=== PATIENT | male | born 1940 | race Caucasian/White ===

== ENCOUNTER 2016-09-18 21:32 | Inpatient (IN) | payer OTHER, BC ==
[~2016-09-18] VITALS: Ht 167.6 cm; Wt 104.7 kg
--- NOTE | ~2016-09-18 | H ---
[facility] [place] [address] HISTORY AND PHYSICAL Name: DIXIE KESSLER V Room #: 537-P ADM IN M.R.#: [id number] Admission: 09/18/16 Attend Phys: Abdulaziz Reed MD Discharge: Date of : 38 Report #: [id number] THIS REPORT FOR: //name// CC: Jaison Strong DATE OF SERVICE: 09/19/2016 ATTENDING PHYSICIAN: Abdulaziz Reed M.D. PRIMARY CARE PHYSICIAN: Pawan Hicks D.O. CHIEF COMPLAINT: Left knee redness, pain and swelling. HISTORY OF PRESENT ILLNESS: The patient is a 76-year-old male who came into the ER complaining of left knee pain. This has been going on for the last 5 days. He has noticed increasing redness and swelling, which has been getting worse in the last few days. His history is somewhat complicated and dates back to February, when he was found to have positive blood cultures with MSSA. He then had a CT of the lumbar spine which showed discitis with a vertebral osteomyelitis. He had a CONNIE, which did not show any vegetation, but his cultures remained persistently positive. It was also considered that he had an infected pacemaker. He does have a prior left total knee replacement. He has hardware in his left knee. He ended up being discharged to rehab on nafcillin IV, and has since been on antibiotics under the guidance of Dr. Lee, who check his labs 9 days ago and he was noted to have an elevated white blood cell count. He has not been having any fevers or chills. He has most recently been on Keflex for the last 2 months. He does have CLL, so he is on an oral chemotherapy, which he takes daily. He is followed by Dr. Ruiz. He called Dr. Lee with his left knee changes and was told to come into the ER to be evaluated. He has been admitted for further IV antibiotics. Back in February, he also had a whole body WBC scan that was negative. PAST MEDICAL HISTORY: Chronic kidney disease stage III with last known creatinine of 1.8, chronic lymphocytic leukemia, COPD, atrial fibrillation, hypothyroidism, hypertension and hypogammaglobulinemia. Recent lumbar discitis and vertebral osteomyelitis and recent bacteremia with MSSA. PAST SURGICAL HISTORY: Pacemaker placement, bilateral total knee replacement, lumbar laminectomy, bilateral carpal tunnel release, hand surgery, appendectomy, umbilical hernia repair, and a cyst removed from his tonsils. ALLERGIES: HYDROCODONE. [address] [address] HISTORY AND PHYSICAL Name: DIXIE KESSLER V Room #: 537-P [facility] IN .R.#: [id number] Admission: 09/18/16 Attend Phys: Abdulaziz Reed MD Discharge: Date of : 38 Report #: [id number] HOME MEDICATIONS: Torsemide 20 mg daily, amiodarone 200 mg daily, Flonase daily, Advair daily, potassium 10 mEq daily, Tylenol p.r.n., cranberry daily, ranitidine 75 mg b.i.d., metoprolol 50 mg b.i.d., Imbruvica 140 mg daily, Keflex 500 mg b.i.d. and Synthroid 25 mcg daily. SOCIAL HISTORY: The patient is an ex-smoker. He denies any alcohol or drug use. 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 He lives at home with his . FAMILY HISTORY: Noncontributory to this admission. REVIEW OF SYSTEMS: The patient has noticed since he has been on this specific chemotherapy, that he has had chronic edema in his upper extremities as well as easy bruising. He has had multiple Dopplers of his upper and lower extremities, which have always been negative for DVTs. All other 12-point review of systems was reviewed with the patient and otherwise negative unless stated in the HPI. PHYSICAL EXAMINATION: GENERAL: The patient is an alert male in no acute distress. VITAL SIGNS: Temperature is 36.7, heart rate 71, respirations 16, blood pressure is 166/84 and oxygen 96% on room air. HEENT: PERRLA. Sclerae are nonicteric. Oral mucosa is pink and moist. NECK: Supple, no JVD noted. CARDIOVASCULAR: Heart rate is irregular. No murmurs, rubs or gallops. RESPIRATORY: Breath sounds are clear bilaterally. No wheezing or rhonchi. Breathing is nonlabored. ABDOMEN: Soft, round, nontender and nondistended with positive bowel sounds. VASCULAR: He does have 2 plus bilateral pitting edema of upper extremities and the left lower extremity. Peripheral pulses are all 2+. NEUROLOGIC: The patient is alert and oriented x 3. Speech is clear. He is moving all extremities equally. No focal weakness noted. SKIN: He does have significant erythema around his left knee that extends down into his left murrell and calf areas. The borders are currently marked with a marker. It is warm at the site of the erythema. There are a few small scabbed areas on his left knee, but nothing is draining. He also has significant bruising to bilateral upper extremities. LABORATORY AND DIAGNOSTIC DATA: WBC is 14.8, hemoglobin 14.4 and platelets 147. Sodium is 137, potassium 3.7, BUN 45, creatinine 2.4 and lactate 0.8. INR 1.0. Left knee x-ray shows possible mildly impacted fracture of the medial proximal tibia, acuity or chronicity is indeterminant. ASSESSMENT AND PLAN: 1. Left lower extremity cellulitis with possible septic joint: The patient has been admitted for intravenous antibiotics. We will continue with vancomycin. He is immunocompromised as he is on chemotherapy. We will consult ortho for [facility] [address] [place] [address] HISTORY AND PHYSICAL Name: DIXIE KESSLER V Room #: 537-P [facility] IN [facility]#: [id number] Admission: 09/18/16 Attend Phys: Abdulaziz Reed MD Discharge: Date of : 38 Report #: [id number] joint aspiration. We will follow those cultures. We will also follow up blood cultures and consult Dr. Lee. 2. History of recent methicillin-susceptible Staphylococcus aureus bacteremia and vertebral discitis and osteomyelitis. Blood cultures have been drawn. Continue with vancomycin. He is currently denying any back pain. 3. Acute kidney injury on chronic kidney disease. Last known creatinine was 1.8 to 1.9 in February. He is mildly dehydrated. We will hold diuretics and gently hydrate. Follow labs. 4. Chronic lymphocytic leukemia: He is currently immunocompromised as he is on chemotherapy. He also has a history of hypogammaglobinemia and has been receiving IVIG infusions monthly. He follows with Dr. Ruiz outpatient. 5. Chronic atrial fibrillation: He is currently rate controlled. Continue amiodarone at home. He is not on any specific anticoagulation. 6. Hypothyroidism: Continue Synthroid. 7. Hypotension: Blood pressure is stable, continue home medications. 8. Chronic obstructive pulmonary disease: This is stable. Add breathing treatments p.r.n. 9. Deep venous thrombosis prophylaxis, place sequential compression devices. We will continue to follow the patient closely throughout the hospitalization and make changes based on clinical status. By: [id number] DEIDRE Abraham /nt
--- NOTE | ~2016-09-18 | HC ---
[facility] [place] [address] CONSULTATION Name: DIXIE KESSLER V Room #: 537-P ADM IN M.R.#: [id number] Admission: 09/18/16 Attend Phys: Abdulaziz Reed MD Discharge: Date of : 38 Report #: [id number] THIS REPORT FOR: //name// CC: Jaison Sandhu Tae DATE OF SERVICE: 09/19/2016 SERVICE: Orthopedics. FACILITY: [facility] LOCK OPERATOR: Catracho Todd MD REQUESTING PHYSICIAN: Jaison Lee MD REASON FOR CONSULTATION: Left leg pain and swelling. PAST MEDICAL HISTORY: Bilateral total knee arthroplasties around 2001, history of cardiac pacemaker placed in 2015 with reported history of infections since that had been treated by Dr. Jaison Lee, history of arthritis, carpal tunnel syndrome, status post surgery, and atrial fibrillation reported. PAST SURGICAL HISTORY: Bilateral total knee arthroplasties in 2001 approximately, bilateral carpal tunnel releases approximately in 2005, appendix approximately in , lumbar laminectomy in 2013, and prior back surgery in 1976. ALLERGIES: HYDROCODONE. MEDICATIONS: Medicines in the hospital presently include vancomycin, amiodarone, famotidine, Mucinex, Synthroid, Lopressor, morphine p.r.n., and Zofran p.r.n. FAMILY HISTORY: Noncontributory. SOCIAL HISTORY: The patient is . He lives outside of [place], [place]. He denies substance abuse. REVIEW OF SYSTEMS: No chills, chest pain, shortness of breath, or weight loss. He reports approximately a 6-day history of left leg redness and swelling. CHIEF COMPLAINT: Left leg pain and swelling. [facility] [address] [place] [address] CONSULTATION Name: CHECODIXIE V Room #: 537-P [facility] IN [facility]#: [id number] Admission: 09/18/16 Attend Phys: Abdulaziz Reed MD Discharge: Date of : 38 Report #: [id number] HISTORY OF PRESENT ILLNESS: The patient is a 76-year-old male who is status post bilateral total knee arthroplasty around 2001. He recently underwent a cardiac pacemaker placement in 2015, and developed an infection afterwards and he has been treated with antibiotics for quite some time. He states that he has been on antibiotics since around the fall of 2015. He called Dr. Jaison Lee who is his infectious disease physician when he noted increasing swelling in the leg. He states that the pain and swelling began in the prepatellar location of the left knee. He has never had any drainage. He did develop 2 superficial abrasions on the surgical scar, but has not had any signs of infection deep. He had progressive redness, swelling, erythema and soft tissue pain extending down the leg towards the ankle. This started about 6 days ago with prepatellar issue. He has not had any difficulty with weightbearing. He denies any subjective fevers. He called Dr. Lee's office with a history of total knees, they were concerned about potential septic joint, so he was referred to the emergency room and orthopedics was consulted after he was admitted. PHYSICAL EXAMINATION: VITAL SIGNS: T-max 37.0. Temperature at the time of evaluation 37.0, pulse 60, respirations 18, blood pressure 139/51, and pulse ox 96%. GENERAL: He is a healthy appearing gentleman, alert and oriented, in no acute distress. No evidence of systemic infection. EXTREMITIES: Bilateral upper extremities have mild soft tissue edema. No signs of acute infection. Left lower extremity demonstrates extensive intense erythema with swelling from the midpoint of the knee down to the ankle. This is primarily anterior, medial, and lateral and involves the majority of the calf and leg. There is a small effusion in the left knee. The erythema does not involve the knee. He demonstrates ability to ambulate, full weightbearing left lower extremity. There was a mechanical noise noted in the left knee consistent with total knee arthroplasty. There is a healed incision with passive range of motion. Passive range of motion is 0-100 degrees without any irritability. There is a surgical incision scar that is healed and 2 superficial scabs that are small without signs of infection. He has tenderness over the patella with some soft tissue bogginess here, but no evidence of abscess or fluid collection. There is no drainage present. There is minimal erythema over the patella. Most of the erythema is distal to this. He is neurovascularly intact. Right lower extremity has no signs of infection or acute orthopedic condition. LABORATORY DATA: Admission white blood cell count 14.8, followup is 12.2. ESR is 47. IMPRESSION: A 76-year-old male with a history of previous left total knee arthroplasty with left leg cellulitis with a prepatellar origin. PLAN: I explained to the patient that I would be concerned that there is possibility of infection in the knee. He does have a small effusion, but the knee is not irritable. However, this began at the level of the knee over the [facility] [address] [facility] [place] [address] CONSULTATION Name: DIXIE KESSLER V Room #: 537-P [facility] IN M.R.#: [id number] Admission: 09/18/16 Attend Phys: Abdulaziz Reed MD Discharge: Date of : 38 Report #: [id number] patella, he has had an infection for quite some time, and he does have swelling and I think it is reasonable to move forward with aspiration for more definitive answer. He agreed with this and we performed the procedure on the floor. PROCEDURE NOTE: After conformed consent was obtained, sterile technique was utilized to perform a left knee aspiration. ChloraPrep was used to extensively clean the leg. 3 mL of 1% lidocaine without epinephrine was infiltrated underneath the skin and down to the level of the capsule for anesthesia. Then, an 18-gauge needle was used to aspirate total of 12 mL of clear yellow serous fluid without any debris or evidence of purulence. The fluid was then sterilely transferred to aerobics/anaerobic culture swabs, CBC tube for cell count with differential and urine specimen cup for crystal analysis sent for further studies as needed. Band-Aid was applied. The patient tolerated it well. There were no complications. UPDATE: The aspirate came back with 800 white blood cells, negative Gram stain, & 3% polymorphonuclear cells in the differential. There is therefore no laboratory evidence of infection. We will recommend treatment of the cellulitis and I will continue to observe him through the weekend for signs of worsening. <ELECTRONICALLY SIGNED> By: Catracho Todd MD 09/19/16 2224 [id number] 23 Catracho Todd MD /nt
--- NOTE | ~2016-09-18 | HC ---
[facility] [place] [address] CONSULTATION Name: CHECODIXIE Low Room #: 537-P [facility] IN .R.#: [id number] Admission: 09/18/16 Attend Phys: Abdulaziz Reed MD Discharge: Date of : 38 Report #: [id number] THIS REPORT FOR: //name// CC: Jaison Strong REASON FOR CONSULTATION: I was asked to evaluate concerning left knee pain, swelling and erythema. HISTORY OF PRESENT ILLNESS: The patient was a 76-year-old with underlying history of CLL, hypogammaglobulinemia on ibrutinib. I had seen him for the past year due to a high grade Staphylococcus aureus bacteremia identified 02/11/2016. It took him 4 days to clear his bloodstream. He was treated with a prolonged course of IV antibiotic therapy followed by oral suppression. He had had a recent permanent pacemaker placed. He has underlying valvular heart disease. Transesophageal echocardiogram showed no evidence of vegetation. Indium scan was negative. CT scan of lumbar spine showed changes consistent with advanced degenerative arthritis and diskitis at L2-L3 and L3-L4. There was no epidural abscess identified. He has bilateral total knee arthroplasties. He had been tolerating Keflex supression without issue. Back pain has been under control. Heart failure has been reasonably controlled. Again, he stays on his oral immunosuppression for CLL. About 5 days ago, he noticed 2 spots over his left knee incision scar which he scratched. Subsequently, he noticed increased swelling and redness along with tenderness over his patella. No fever, chills or sweats. The erythema extended and his daughter called yesterday for further advice. He was sent to the Emergency Room for further evaluation. There, he was noted to have cellulitis of the anterior leg along with an effusion in the left knee joint. He has been able to ambulate with minimal discomfort. No nocturnal pain. Again, no fever, chills or sweats. REVIEW OF SYSTEMS: Notes no cough or sputum production. No nausea, vomiting or diarrhea or dysuria. ALLERGIES: HYDROCODONE. MEDICATIONS: As noted on his MAR including Keflex. He was started on vancomycin last evening. PAST MEDICAL HISTORY: CLL, sick sinus syndrome, permanent pacemaker, chronic sinusitis, degenerative arthritis, multiple back surgeries, bilateral total knee arthroplasties, carpal tunnel surgery, appendectomy, umbilical herniorrhaphy, atrial fibrillation, COPD. FAMILY HISTORY: Noncontributory. [address] [address] CONSULTATION Name: DIXIE KESSLER V Room #: 537-P [facility] IN .R.#: [id number] Admission: 09/18/16 Attend Phys: Abdulaziz Reed MD Discharge: Date of : 38 Report #: [id number] SOCIAL HISTORY: He is a past smoker, no significant alcohol intake. He is still fairly active at his home. PHYSICAL EXAMINATION: VITAL SIGNS: Afebrile, hemodynamically stable. EXTREMITIES: He had 1+ edema in the upper and lower extremities. Left knee had erythema involving the anterior knee down the murrell. No fluctuant area was identified. He did have 2 eschars over his left knee incisional scar. Had some tenderness over his patella. HEENT: Unremarkable. LUNGS: A few crackles in the bases. HEART: Regular, without murmur. Pacemaker pocket unremarkable. ABDOMEN: Moderately obese, nontender, no hepatosplenomegaly or mass. LABORATORY STUDIES: Chest x-ray was clear. X-ray showed questionable tibial fracture. Sedimentation rate 47, creatinine 2.3, hemoglobin 13.6, white count is 12.2, platelet count 150,000. He underwent aspiration of his knee earlier this morning. These results are pending. IMPRESSION AND PLAN: A 76-year-old with underlying chronic lymphocytic leukemia, who has been on suppressors and antibiotics due to high grade Staphylococcus aureus bacteremia along with lumbar diskitis and vertebral osteomyelitis dating back 02/2016. This occurred after a recent permanent pacemaker placement. The left knee erythema and swelling I suspect more cellulitis and patellar tendon issue. Could not yet exclude prosthetic joint infection. I agree with the current plan for needle aspiration and reassess fluid analysis prior to our next step. He will stay on vancomycin. We will check immunoglobulin levels. We will have him hold his immunosuppression pending further studies. <ELECTRONICALLY SIGNED> By: Jaison Lee MD 09/22/16 1120 [id number] Jaison Lee MD /nt
[~2016-09-18 21:32] MED LIST: ACCUNEB SO1.25 MG/1 INH; ADVAIR HFA 1112 UNIT INH; ADVAIR HFA115 MCG/21 INH; ALBUTEROL INH; ASPIRIN81 M2 PO; AUGMENTIN 875875 MG PO; B12INJ IM; BACTRIM DS TAB1 EACH PO; BENADRYL25 MG PO; BISACODYL10 MG RC; BUMETANIDE 1 MG1 M1 PO; CEFTIN500 MG PO; CENTRUM SILVER1 EAC2 PO; COLACE100 MG PO; CRANBERRY200 MG PO; CRANBERRY450 M1 PO; Cyanocobalamin PO; DEMADEX 2020 MG/1 TA PO; DEMADEX20 MG PO; FLONASE 0.05%50 MCG NASAL; GAMMAGARD IV; IMBRUVICA140 MG PO; KEFLEX500 MG PO; KLOR-CON 1010 MEQ PO; LASIX 40 MG TAB40 M2 PO; LEVAQUIN 500 M500 M4 PO; LOPRESSOR25 PO; LOPRESSOR50 PO; LYRICA 50 MG50 MG; MILK OF MA2400 MG/10 PO; MIRALAX17 GM PO; MUCINEX TA600 MG/TA2 PO; MUCINEX100 MG PO; NAFCILLIN 2 GM A2 G1 IV; NETIPOT IRRIG; NETIPOT NASAL; NEURONTIN300 MG PO; NORCO 10-325 T1 EACH PO; NORCO 5-325 TA1 EACH PO; PACERONE 200 M200 M1 PO; PAXIL10 MG; PREDNISONE 10 M10 MG PO; PREDNISONE 20 M20 MG PO; PRILOSEC 20 MG20 MG PO; PROTONIX40 M1 PO; RITUXAN; RITUXAN100 MG/10; SENNA PO; SPIRIVA INH; TREANDA; TRIPLE ANTIBIO1 EACH TP; TYLENOL325 MG PO; UNICOMPLEX M TA1 TA1 PO; VENTOLIN HFA INH8 GM INH; VIBRAMYCIN 100100 MG PO; VITAMIN B-12500 MCG PO; VITAMIN D1000 UNI1 PO; VITAMIN D22000 UNIT PO; XOPENEX 0.63 MG/3 M1 IH; XOPENEX0.63 MG/3 IH; ZANTAC 150MG T150 MG PO; ZOVIRAX800 MG PO; [UNRECOGNIZED DRUG - OTHER]
[2016-09-18 21:36] VITALS: BP 166/84
[2016-09-18] MEDS ORDERED: KEFLEX500 MG PO (21:41)
[2016-09-18] MEDS ORDERED: LOPRESSOR50 PO (21:41)
[2016-09-18] MEDS ORDERED: IMBRUVICA140 MG PO (21:41)
[2016-09-18] MEDS ORDERED: LEVOTHYROXIN0.025 MG PO (21:41)
[2016-09-18 22:43] LABS: HEMATOCRIT 43.7 % (42.0-52.0); HEMOGLOBIN 14.4 gm/dL (14.0-18.0); MANUAL DIFF YES; MCH 29.9 pg (26.0-34.0); MCHC 32.9 g/dL (28.0-37.0); MCV 90.8 fL (80.0-100.0); PLATELET COUNT 147 thou/uL (150-400); RBC 4.81 mil/uL (4.50-6.00); WBC 14.8 thou/uL (4.0-11.0)
[2016-09-18 22:51] LABS: CALCIUM 8.2 mg/dL (8.5-10.1); CREATININE 2.4 mg/dL (0.7-1.3); POTASSIUM 3.7 mmol/L (3.5-5.1)
[2016-09-18 23:09] LABS: ABSOLUTE NEUTROPHILS 8.9 thou/uL (1.4-8.2); TOTAL CELL COUNT 100
[2016-09-18 23:48] LABS: PROTIME 10.2 Seconds (9.3-11.4)
[2016-09-19 00:03] VITALS: BP 132/65
[2016-09-19 00:52] VITALS: BP 130/61
[2016-09-19 05:00] VITALS: BP 139/51
[2016-09-19 05:25] LABS: HEMATOCRIT 41.6 % (42.0-52.0); HEMOGLOBIN 13.6 gm/dL (14.0-18.0); MCH 29.5 pg (26.0-34.0); MCHC 32.8 g/dL (28.0-37.0); RBC 4.62 mil/uL (4.50-6.00); RDW 13.8 % (10.5-14.5); WBC 12.2 thou/uL (4.0-11.0)
[2016-09-19 05:37] LABS: CALCIUM 8.1 mg/dL (8.5-10.1); CREATININE 2.3 mg/dL (0.7-1.3); POTASSIUM 3.5 mmol/L (3.5-5.1)
[2016-09-19 11:12] LABS: SYN FLD CLARITY HAZY; SYN FLD COLOR YELLOW; TOTAL VOLUME 10 mL
[2016-09-19 11:13] LABS: SYN FLD NUCLEATED CELLS 800; SYN FLD RBC 210
[2016-09-19 11:18] LABS: BF CRYSTALS No Crystals seen
[2016-09-19 13:13] LABS: SYN FLD EOS 0; SYN FLD LINING CELLS 0; SYN FLD LYMPHS 92; SYN FLD MACROPHAGE 0; SYN FLD NEUTROPHILS 3
[2016-09-19 15:38] VITALS: BP 124/55
[2016-09-19 20:00] VITALS: BP 155/63
[2016-09-20 03:35] VITALS: BP 140/53
[2016-09-20 05:10] LABS: HEMATOCRIT 42.9 % (42.0-52.0); MCH 29.9 pg (26.0-34.0); MCHC 32.6 g/dL (28.0-37.0); MCV 91.8 fL (80.0-100.0); RBC 4.68 mil/uL (4.50-6.00); RDW 14.1 % (10.5-14.5); WBC 13.8 thou/uL (4.0-11.0)
[2016-09-20 08:33] VITALS: BP 135/70
[2016-09-20 16:38] VITALS: BP 142/66
[2016-09-20 19:30] VITALS: BP 142/60
[2016-09-21 03:38] VITALS: BP 155/71
[2016-09-21 07:25] VITALS: BP 144/64
[2016-09-21 10:45] LABS: URINE BILIRUBIN NEGATIVE (Negative); URINE BLOOD TRACE (Negative); URINE COLOR YELLOW; URINE GLUCOSE-RANDOM* NEGATIVE (Negative); URINE KETONES NEGATIVE (Negative); URINE NITRITE NEGATIVE (Negative); URINE PROTEIN (DIPSTICK) TRACE (Negative); URINE UROBILINOGEN 0.2 E.U./dl (0.2-1.0)
[2016-09-21 19:40] VITALS: BP 148/55
[2016-09-22 03:45] VITALS: BP 138/61
[2016-09-22 07:49] VITALS: BP 156/68
[2016-09-22 07:57] LABS: HEMATOCRIT 40.8 % (42.0-52.0); HEMOGLOBIN 13.3 gm/dL (14.0-18.0); MCHC 32.6 g/dL (28.0-37.0); MCV 92.3 fL (80.0-100.0); PLATELET COUNT 136 thou/uL (150-400); RBC 4.42 mil/uL (4.50-6.00); RDW 14.2 % (10.5-14.5); WBC 11.8 thou/uL (4.0-11.0)
[2016-09-22 08:00] LABS: MANUAL DIFF YES
[2016-09-22 08:08] LABS: CALCIUM 8.2 mg/dL (8.5-10.1); CREATININE 1.7 mg/dL (0.7-1.3); POTASSIUM 4.4 mmol/L (3.5-5.1)
[2016-09-22 08:37] LABS: ABSOLUTE NEUTROPHILS 6.5 thou/uL (1.4-8.2); TOTAL CELL COUNT 100
[2016-09-22 08:38] LABS: ANISOCYTOSIS SLIGHT; LARGE PLATELETS OCCASIONAL
[2016-09-22 13:36] VITALS: BP 156/68
== END 2016-09-22 15:10 | disposition home or self-care (01) | DRG 602 ==
LOC: ER 21:32 → 5S 23:21 → EROBS 23:21 → 5S 09-19 00:22
PROVIDERS: Emergency Medicine; Hospitalist; Internal Medicine Infectious Disease; Orthopaedic Surgery Sports Medicine; Specialist
PROC: 0S9D3ZX Drainage of Left Knee Joint, Percutaneous Approach, Diagnostic (ICD-10-PCS; principal; 2016-09-19)
DX: L03.116 Cellulitis of left lower limb (principal); N17.0 Acute kidney failure with tubular necrosis; C91.10 Chronic lymphocytic leukemia of B-cell type not having achieved remission; M19.90 Unspecified osteoarthritis, unspecified site; G89.29 Other chronic pain; I49.5 Sick sinus syndrome; Z96.653 Presence of artificial knee joint, bilateral; J44.9 Chronic obstructive pulmonary disease, unspecified; M25.462 Effusion, left knee; N18.9 Chronic kidney disease, unspecified; I48.2 Chronic atrial fibrillation; E03.9 Hypothyroidism, unspecified; I95.9 Hypotension, unspecified; Z86.14 Personal history of Methicillin resistant Staphylococcus aureus infection; Z88.6 Allergy status to analgesic agent; Z87.891 Personal history of nicotine dependence; Z95.0 Presence of cardiac pacemaker; Z90.49 Acquired absence of other specified parts of digestive tract
CPT/HCPCS: 10086

== ENCOUNTER 2016-09-26 15:50 | Inpatient (IN) | payer OTHER, BC ==
[~2016-09-26] VITALS: Ht 165.1 cm; Wt 104.3 kg
[~2016-09-26 15:50] MED LIST changes: +LEVOTHYROXIN0.025 MG PO
[2016-09-26 16:07] VITALS: BP 168/70
[2016-09-26 17:26] LABS: HEMATOCRIT 39.7 % (42.0-52.0); HEMOGLOBIN 13.2 gm/dL (14.0-18.0); MCH 29.9 pg (26.0-34.0); MCHC 33.2 g/dL (28.0-37.0); MCV 90.1 fL (80.0-100.0); RBC 4.4 mil/uL (4.50-6.00); RDW 13.6 % (10.5-14.5); WBC 10.1 thou/uL (4.0-11.0)
[2016-09-26 17:34] LABS: CREATININE 2.3 mg/dL (0.7-1.3)
[2016-09-26 20:00] VITALS: BP 129/71
[2016-09-27 04:00] VITALS: BP 122/70
[2016-09-27 04:06] LABS: GLYCOHEMOGLOBIN (HGB A1C) 5.2 % (4.8-5.6)
[2016-09-27 04:48] LABS: HEMATOCRIT 37.2 % (42.0-52.0); HEMOGLOBIN 12.4 gm/dL (14.0-18.0); MCH 30.1 pg (26.0-34.0); MCHC 33.3 g/dL (28.0-37.0); MCV 90.3 fL (80.0-100.0); RBC 4.12 mil/uL (4.50-6.00); RDW 13.5 % (10.5-14.5); WBC 8.1 thou/uL (4.0-11.0)
[2016-09-27 04:58] LABS: CALCIUM 7.7 mg/dL (8.5-10.1); CREATININE 2.1 mg/dL (0.7-1.3); POTASSIUM 4.3 mmol/L (3.5-5.1)
[2016-09-27 07:53] VITALS: BP 144/71
[2016-09-27 09:34] LABS: URINE BILIRUBIN NEGATIVE (Negative); URINE BLOOD TRACE (Negative); URINE COLOR YELLOW; URINE GLUCOSE-RANDOM* NEGATIVE (Negative); URINE KETONES NEGATIVE (Negative); URINE LEUKOCYTES-REFLEX NEGATIVE (Negative); URINE PROTEIN (DIPSTICK) NEGATIVE (Negative); URINE SPECIFIC GRAVITY 1.015 (1.003-1.035); URINE UROBILINOGEN 0.2 E.U./dl (0.2-1.0)
[2016-09-27 16:18] VITALS: BP 140/57
[2016-09-27 20:00] VITALS: BP 133/79
[2016-09-28 04:30] VITALS: BP 139/82
[2016-09-28 06:53] LABS: ALBUMIN 3.2 g/dL (3.4-5.0); CALCIUM 8.4 mg/dL (8.5-10.1); CREATININE 1.9 mg/dL (0.7-1.3); PHOSPHORUS 3.9 mg/dL (2.5-4.9); POTASSIUM 4.2 mmol/L (3.5-5.1)
[2016-09-28 07:34] VITALS: BP 129/69
[2016-09-28 16:00] VITALS: BP 131/83
[2016-09-28 20:20] VITALS: BP 144/55
[2016-09-29 04:00] VITALS: BP 153/80
[2016-09-29 08:16] VITALS: BP 154/73
[2016-09-29] MEDS ORDERED: FLORANEX PACKET1 GM PO (13:07)
[2016-09-29] MEDS ORDERED: CLEOCIN HCL150 MG PO (13:07)
[2016-09-29] MEDS ORDERED: PREDNISONE 10 M10 M1 PO (13:16)
[2016-09-29 15:59] VITALS: BP 154/73
== END 2016-09-29 17:12 | disposition home or self-care (01) | DRG 602 ==
LOC: 4E 15:50
PROVIDERS: Hospitalist
DX: L03.116 Cellulitis of left lower limb (principal); N17.0 Acute kidney failure with tubular necrosis; C91.10 Chronic lymphocytic leukemia of B-cell type not having achieved remission; M19.90 Unspecified osteoarthritis, unspecified site; Z96.653 Presence of artificial knee joint, bilateral; G89.29 Other chronic pain; J44.9 Chronic obstructive pulmonary disease, unspecified; I48.2 Chronic atrial fibrillation; E03.9 Hypothyroidism, unspecified; M10.9 Gout, unspecified; Z88.6 Allergy status to analgesic agent; Z90.49 Acquired absence of other specified parts of digestive tract; Z79.899 Other long term (current) drug therapy; N18.9 Chronic kidney disease, unspecified
CPT/HCPCS: 10783

== ENCOUNTER → 2017-04-23 | Outpatient (CLI) | payer OTHER, BC ==
[~2017-04-23] MED LIST changes: +CLEOCIN HCL150 MG PO; +FLORANEX PACKET1 GM PO; +PREDNISONE 10 M10 M1 PO
== END ==
LOC: RAD 15:42
DX: R06.00 Dyspnea, unspecified (principal)

== ENCOUNTER → 2017-05-13 | Outpatient (CLI) | payer OTHER, BC | LOC: CAT 16:53 | DX: M47.894 Other spondylosis, thoracic region (principal) ==

== ENCOUNTER 2018-03-26 18:52 | Inpatient (IN) | payer OTHER, BC ==
[~2018-03-26] VITALS: Ht 165.1 cm; Wt 106.6 kg
--- NOTE | ~2018-03-26 | HC ---
[facility] [place] [address] CONSULTATION Name: DIXIE KESSLER V Room #: 426-P ADM IN M.R.#: [id number] Admission: 03/26/18 Attend Phys: Jose Miguel Banda MD Discharge: Date of : 38 Report #: [id number] THIS REPORT FOR: //name// CC: Pawan Wood PAST MEDICAL HISTORY: CLL, sick sinus syndrome, permanent pacemaker, chronic sinusitis, degenerative arthritis, multiple back surgeries, bilateral total knee arthroplasties, carpal tunnel surgery, appendectomy, umbilical herniorrhaphy, atrial fibrillation, COPD, congestive heart failure. FAMILY HISTORY: Noncontributory. SOCIAL HISTORY: Past smoker, no significant alcohol intake. REVIEW OF SYSTEMS: Ten-point review negative other than what is described above. PHYSICAL EXAMINATION: GENERAL: The patient was alert and cooperative. He was sitting to the side of bed, in no distress. Moderately obese. VITAL SIGNS: Afebrile, hemodynamically stable. SKIN: Several areas of ecchymosis. No palpable lymphadenopathy. HEENT: Without scleral icterus or conjunctivitis. Mouth without lesion. NECK: Supple, with no thyromegaly or mass or JVD. BACK: Nontender to percussion. No CVA tenderness. LUNGS: Clear. HEART: Regular without murmur, gallop or rub. ABDOMEN: Left-sided pacemaker pocket was unremarkable. Right chest Port-A-Cath was swollen, erythematous had an eschar to the mid portion, small area of fluctuance. Tunnel was unremarkable. ABDOMEN: Obese, soft, nontender, no hepatosplenomegaly or mass. EXTREMITIES: With upper and lower extremity edema. Degenerative arthritis changes. NEUROLOGIC: Cranial nerves intact. Upper and lower extremity strength normal. Sensation intact. Mood was normal. Laboratory STUDIES: Chest x-ray: Cardiomegaly, right-sided Port-A-Cath. Right upper lung, small focal infiltrate. Hemoglobin 14.7, WBC 10.6, platelet count 177,000. Sodium 141, potassium 4.2, bicarbonate 26, creatinine 2.6. Liver function test normal. Blood cultures pending. IMPRESSION: An 78-year-old with underlying chronic lymphocytic leukemia with Port-A-Cath site infection of the pocket. Also has chronic kidney disease, hypogammaglobulinemia, peripheral edema, and congestive heart failure. [address] [address] CONSULTATION Name: DIXIE KESSLER V Room #: 426-P ADM IN M.R.#: [id number] Admission: 03/26/18 Attend Phys: Jose Miguel Banda MD Discharge: Date of : 38 Report #: [id number] RECOMMENDATION: Given his other comorbidities, I would recommend explantation of the Port-A-Cath and debridement of the pocket. Obtain cultures at that time. Await blood culture results. Continue IV antibiotic therapy pending the studies. <ELECTRONICALLY SIGNED> By: Jaison Lee MD 03/29/18 1232 [id number] Jaison Lee MD /sharyn
--- NOTE | ~2018-03-26 | HC ---
[facility] [place] [address] CONSULTATION Name: DIXIE KESSLER V Room #: 426-P [facility] IN M.R.#: [id number] Admission: 03/26/18 Attend Phys: Lyle Wood MD Discharge: Date of : 36 Report #: [id number] THIS REPORT FOR: //name// CC: Pawan Wood DATE OF SERVICE: 03/27/2018 Infectious Disease Consultation REASON FOR EVALUATION: Right chest Port-A-Cath infection. HISTORY OF PRESENT ILLNESS: The patient is an 78-year-old with underlying CLL, on chemotherapy and also receives monthly immunoglobulin injections. He has issues with significant anasarca. Has lost IV access and approximately 2 weeks ago had right chest Port-A-Cath placed at [facility]. He had it accessed about 5 days ago. Subsequent to that, he has developed increased swelling, erythema, and tenderness. No fever, chills or sweats. Because of such, he was evaluated in the emergency room and placed on IV antibiotic therapy. He has had a previous history of Staph aureus, high-grade bacteremia following permanent pacemaker placement. Also had evidence of lumbar vertebral osteomyelitis. He remains on cephalexin as his maintenance suppression. ALLERGIES: HYDROCODONE. MEDICATIONS: As noted on his MAR, having been started on vancomycin, ceftazidime, Micafungin last evening. It is noted that he has remained on ibrutinib for his CLL treatment. PAST MEDICAL HISTORY: Chronic leukemia, arthritis, total knee arthroplasty, carpal tunnel surgery, appendectomy, umbilical hernia repair, COPD, lumbar laminectomy, gout, permanent pacemaker, diskitis, hypogammaglobulinemia, atrial fibrillation, congestive heart failure. FAMILY HISTORY: Noncontributory. SOCIAL HISTORY: Past smoker, no significant alcohol intake. REVIEW OF SYSTEMS: The patient denies any cough or sputum production, nausea, vomiting or diarrhea, chest pain or palpitations. No neurologic issues. No endocrine abnormalities. No bleeding. He has remained on anticoagulation, which is now on hold. No increased adenopathy. PHYSICAL EXAMINATION: GENERAL: Well-developed, obese gentleman in no acute distress. Sitting to the side of the bed. [facility] [address] [place] [address] CONSULTATION Name: DIXIE KESSLER V Room #: 426-P [facility] IN M.R.#: [id number] Admission: 03/26/18 Attend Phys: Lyle Wood MD Discharge: Date of : 38 Report #: [id number] VITAL SIGNS: Blood pressure is stable. Heart rate, normal sinus. HEENT: Without conjunctival injection or scleral icterus. Mouth without lesion. NECK: Supple, without thyromegaly or mass. NECK: No JVD. LUNGS: Clear. HEART: Regular, without murmur. EXTREMITIES: Right chest Port-A-Cath site was inflamed, erythematous, and edematous. There was an eschar over the mid portion of the port. Several areas of small fluctuant spots also evident. Tunnel was nontender. ABDOMEN: Obese, soft, nontender, no hepatosplenomegaly or mass. EXTREMITIES: Lymphedema of both upper and lower extremities. No cellulitis. NEUROLOGIC: Cranial nerves intact. Strength in his lower extremities was normal. Sensation intact. LYMPH: No palpable adenopathy. Mood normal. LABORATORY DATA: Hemoglobin 14.7, white count 10.6, platelet count 177,000. Sodium 141, potassium 4.2, bicarbonate 26, creatinine 2.6. Liver function test normal. Lactate 1. IMPRESSION AND PLAN: Right chest Port-A-Cath site infection involving the port site. Given that the patient will need this for retirement and is immunosuppressed with chronic edema and poor skin issues, I would recommend explantation of the Port-A-Cath. Blood cultures were obtained. Once infection is stabilized, we could look at reimplantation down the road. We will discontinue cephalexin while on systemic IV antibiotic therapy. Hold any anticoagulation pending interventional radiology review. <ELECTRONICALLY SIGNED> By: Jaison Lee MD 03/28/18 1228 [id number] Jaison Lee MD /nt
--- NOTE | ~2018-03-26 | HC ---
[facility] [place] [address] CONSULTATION Name: DIXIE KESSLER V Room #: 222-P [facility] IN M.R.#: [id number] Admission: 03/26/18 Attend Phys: Jose Miguel Banda MD Discharge: 03/30/18 Date of : 38 Report #: [id number] THIS REPORT FOR: //name// CC: Jose Miguel Hicks DATE OF SERVICE: 03/29/2018 CHIEF COMPLAINT: Surgical wound to the right anterior chest wall. HISTORY OF PRESENT ILLNESS: This is an 78-year-old male patient with an infected Port-A-Cath port that was removed surgically yesterday and packed with iodoform gauze. I have been asked to see him with regard to wound care. The patient denies significant pain at this time looking forward to going home shortly. PAST MEDICAL HISTORY: Positive for history of acute on chronic renal failure, prostatitis, peripheral edema, coronary artery disease, hypogammaglobulinemia, history of MRSA infection, congestive heart failure, chronic lymphatic leukemia, chronic kidney disease and cervical radiculopathy. ALLERGIES: HYDROCODONE. MEDICATIONS: Include Keflex, torsemide, amiodarone, guaifenesin, fluticasone, Advair, cranberry extract, metoprolol, Imbruvica, levothyroxine, budesonide, diphenhydramine, tiotropium and omeprazole. SOCIAL HISTORY: Negative for alcohol or tobacco use. FAMILY HISTORY: Noncontributory. REVIEW OF SYSTEMS: CONSTITUTIONAL: The patient denies fever, chills or weight loss. NEUROLOGICAL: The patient denies focal weakness, numbness or tingling. EYES: The patient denies visual changes, redness or drainage. ENT: The patient denies earache, nasal drainage or sore throat. CARDIOVASCULAR: The patient denies chest pain, palpitations, or diaphoresis. PULMONARY: The patient denies cough or shortness of breath. GASTROINTESTINAL: The patient denies nausea, vomiting, diarrhea or abdominal pain. ORTHOPEDIC: The patient does complain of swelling in both upper and lower extremities, more so in the upper extremities. Other systems in a 14-point review of systems are negative. PHYSICAL EXAMINATION: VITAL SIGNS: At this time include temperature of 36.7, pulse 63, respiratory [address] [address] CONSULTATION Name: DIXIE KESSLER V Room #: 222-P [facility] IN M.R.#: [id number] Admission: 03/26/18 Attend Phys: Jose Miguel Banda MD Discharge: 03/30/18 Date of : 38 Report #: [id number] rate of 19, blood pressure 163/49. GENERAL: This is a chronically ill-appearing male patient who appears to be in minimal distress. HEENT: Head normocephalic. Nose and throat are clear. NECK: Supple. LUNGS: Clear. HEART: Regular rhythm. ABDOMEN: Soft. Bowel sounds present. SKIN: Chest wall demonstrates a surgical wound to the right anterior chest, which is clean and granulating and does not appear overtly infected. EXTREMITIES: Upper extremities demonstrate 3+ edema bilaterally with skin changes consistent with lymphedema. NEUROLOGIC: The patient is alert and oriented and appropriate. CLINICAL IMPRESSION: 1. Surgical wound to the right anterior chest following removal of an infected Port-A-Cath port. 2. Chronic lymphatic leukemia. 3. Acute on chronic renal failure. 4. History of congestive heart failure. RECOMMENDATIONS: At this point in time, the patient is undergoing lymphedema massage at bedside. I think this would be reasonable to control symptoms. With regard to the chest wall wound, we recommend packing with iodoform gauze daily and would be happy to follow him as an outpatient. Recommend continuing all medications and continue aggressive nutritional support to maximize wound healing. All questions have been answered and I appreciate having been asked to see the patient in consultation. By: [id number] Heath Costello MD /nt
--- NOTE | ~2018-03-26 | HC ---
[facility] [place] [address] CONSULTATION Name: DIXIE KESSLER V Room #: 222-P [facility] IN M.R.#: [id number] Admission: 03/26/18 Attend Phys: Jose Miguel Banda MD Discharge: 03/30/18 Date of : 38 Report #: [id number] THIS REPORT FOR: //name// CC: Pawan Wood DATE OF SERVICE: 03/28/2018 REQUESTING PHYSICIAN: Lyle Wood M.D. REASON FOR CONSULTATION: CLL, IV line infection. HISTORY OF PRESENT ILLNESS: The patient is a pleasant 78-year-old man who has a history of CLL, has been treated with ibrutinib for more than 2 years. He is also receiving IVIG monthly because of immune deficiency. He has apparently had a Port-A-Cath placed at by Dr. Vega on 03/11/2018, developed swelling and erythema around the Port-A-Cath insertion area. The patient was admitted to the hospital with infected port. Dr. Lee has been following the patient for various staph infections, including osteomyelitis of the vertebra and pacemaker Staphylococcus aureus infection. He has been on chronic oral antibiotics. He was admitted to the hospital for Port-A-Cath removal and IV antibiotics. He is on vancomycin, ceftazidime and Micafungin. Oncology consult is requested. He is doing well. His port has been removed today. He does not have fever or chills. He does not have cough or shortness of breath. PAST MEDICAL HISTORY: Significant for CLL, arthritis, COPD, lumbar laminectomy, hypogammaglobulinemia, atrial fibrillation, congestive heart failure, pacemaker placement and Staph aureus infections. SOCIAL HISTORY: . He does not smoke currently, but he is a past smoker. PHYSICAL EXAMINATION: GENERAL: Reveals well-developed, well-nourished man, not in acute distress. VITAL SIGNS: Blood pressure 57/62, heart rate is 60 and temperature 97.8. HEENT EXAMINATION: Does not reveal thrush. NECK: Supple. HEART: Normal S1, S2. LUNGS: Clear. EXTREMITIES: There is severe swelling on bilateral upper extremities because of chronic lymphedema. MENTAL STATUS: Alert and oriented x 3. LABORATORY DATA: White count 11.6, hemoglobin 14.6 and platelets 159,000. Sodium 145, potassium 4.4, BUN 29 and creatinine 1.9. ASSESSMENT AND PLAN: [address] [address] CONSULTATION Name: DIXIE KESSLER V Room #: 222-P [facility] IN ..#: [id number] Admission: 03/26/18 Attend Phys: Jose Miguel Banda MD Discharge: 03/30/18 Date of : 38 Report #: [id number] 1. Infected IV line. I agree with management as per Dr. Lee. 2. Chronic lymphocytic leukemia. The patient is off ibrutinib currently because of recurrent infection. Dr. Ruiz will see him tomorrow and will make decision when to restart ibrutinib. 3. Immunodeficiency. Continue IVIG monthly. I will ask Dr. Ruiz when he is due for next IVIG. Thank you very much for allowing me to participate in the care of this patient. <ELECTRONICALLY SIGNED> By: Kerwin Geiger MD 03/31/18 1359 [id number] Kerwin Geiger MD /nt
[~2018-03-26 18:52] MED LIST changes: +MUCINEX600 MG PO
[2018-03-26 18:54] VITALS: BP 161/76
[2018-03-26] MEDS ORDERED: SYMBICORT160 MCG/4. INH (19:26)
[2018-03-26] MEDS ORDERED: CAL-MAG-ZINC T1 EACH PO (19:27)
[2018-03-26] MEDS ORDERED: BENADRYL25 MG PO (19:28)
[2018-03-26] MEDS ORDERED: PRILOSEC 20 MG20 MG PO (19:28)
[2018-03-26] MEDS ORDERED: SPIRIVA INH (19:29)
[2018-03-26 19:59] LABS: ABSOLUTE NEUTROPHILS 6.8 thou/uL (1.4-8.2); BASOPHILS 1.3 % (0.0-2.0); HEMATOCRIT 43.5 % (42.0-52.0); HEMOGLOBIN 14.7 gm/dL (14.0-18.0); LYMPHOCYTES 22.6 % (24.0-44.0); MCH 29.9 pg (26.0-34.0); MCHC 33.8 g/dL (28.0-37.0); MCV 88.5 fL (80.0-100.0); PLATELET COUNT 177 thou/uL (150-400); POLYS 64.1 % (36.0-66.0); RBC 4.91 mil/uL (4.50-6.00); WBC 10.6 thou/uL (4.0-11.0)
[2018-03-26 20:10] LABS: CALCIUM 8.7 mg/dL (8.5-10.1); CREATININE 2.6 mg/dL (0.7-1.3); POTASSIUM 4.2 mmol/L (3.5-5.1)
[2018-03-26 20:17] LABS: ALBUMIN 3.6 g/dL (3.4-5.0); TOTAL BILIRUBIN 0.6 mg/dL (<0.1-1.0); TOTAL PROTEIN 7.2 g/dL (6.4-8.2)
[2018-03-26 22:30] VITALS: BP 147/66
[2018-03-26 22:58] VITALS: BP 153/68
[2018-03-26 23:06] VITALS: BP 162/80
[2018-03-27 07:56] VITALS: BP 171/73
[2018-03-27 11:34] VITALS: BP 171/73
[2018-03-27 12:52] VITALS: BP 171/73
[2018-03-27 15:00] VITALS: BP 155/75
[2018-03-27 19:24] VITALS: BP 147/70
[2018-03-28 04:15] VITALS: BP 157/71
[2018-03-28 06:52] LABS: HEMATOCRIT 43.8 % (42.0-52.0); HEMOGLOBIN 14.6 gm/dL (14.0-18.0); MCH 29.7 pg (26.0-34.0); MCHC 33.3 g/dL (28.0-37.0); MCV 89.2 fL (80.0-100.0); PLATELET COUNT 159 thou/uL (150-400); RBC 4.92 mil/uL (4.50-6.00); RDW 16.6 % (10.5-14.5); WBC 11.6 thou/uL (4.0-11.0)
[2018-03-28 07:05] VITALS: BP 157/62
[2018-03-28 09:00] LABS: ABSOLUTE NEUTROPHILS 7.9 thou/uL (1.4-8.2); ANISOCYTOSIS 1+; METAMYELOCYTES 1 %
[2018-03-28 11:43] LABS: CALCIUM 8.5 mg/dL (8.5-10.1); CREATININE 1.9 mg/dL (0.7-1.3); POTASSIUM 4.4 mmol/L (3.5-5.1)
[2018-03-28 11:48] VITALS: BP 157/62
[2018-03-28 15:32] VITALS: BP 195/70
[2018-03-28 20:14] VITALS: BP 191/100
[2018-03-29 00:01] VITALS: BP 183/58
[2018-03-29 03:38] VITALS: BP 131/81
[2018-03-29 07:00] VITALS: BP 137/30
[2018-03-29 14:55] VITALS: BP 151/69
[2018-03-29 19:36] VITALS: BP 163/49
[2018-03-30 08:07] VITALS: BP 124/45
[2018-03-30] MEDS ORDERED: DOXYCYCLINE HYC50 MG PO (10:34)
[2018-03-30 14:29] VITALS: BP 124/45
[2018-03-30 15:22] VITALS: BP 124/45
== END 2018-03-30 16:24 | disposition home health service (06) | DRG 264 ==
LOC: ER 18:52 → 4E 20:55 → EROBS 20:55 → 4E 22:47 → SICU 03-29 14:26 → ENTRNSPT 03-30 15:31 → EDTRNSPTSTS 03-30 15:33 → SICU 03-30 16:24
PROVIDERS: Emergency Medicine; Hospitalist; Internal Medicine; Nurse Practitioner Family
PROC: 0JB60ZZ Excision of Chest Subcutaneous Tissue and Fascia, Open Approach (ICD-10-PCS; principal; 2018-03-28)
PROC: 02PYX3Z Removal of Infusion Device from Great Vessel, External Approach (ICD-10-PCS; principal; 2018-03-28)
PROC: 0JPT0WZ Removal of Totally Implantable Vascular Access Device from Trunk Subcutaneous Tissue and Fascia, Open Approach (ICD-10-PCS; principal; 2018-03-28)
DX: T80.218A Other infection due to central venous catheter, initial encounter (principal); N17.0 Acute kidney failure with tubular necrosis; C91.10 Chronic lymphocytic leukemia of B-cell type not having achieved remission; D84.9 Immunodeficiency, unspecified; I13.0 Hypertensive heart and chronic kidney disease with heart failure and stage 1 through stage 4 chronic kidney disease, or unspecified chronic kidney disease; M46.26 Osteomyelitis of vertebra, lumbar region; L03.313 Cellulitis of chest wall; I49.5 Sick sinus syndrome; Z96.653 Presence of artificial knee joint, bilateral; N18.3 Chronic kidney disease, stage 3 (moderate); M62.84 Sarcopenia; I89.0 Lymphedema, not elsewhere classified; J32.9 Chronic sinusitis, unspecified; I50.9 Heart failure, unspecified; K21.9 Gastro-esophageal reflux disease without esophagitis; I25.10 Atherosclerotic heart disease of native coronary artery without angina pectoris; Y83.8 Other surgical procedures as the cause of abnormal reaction of the patient, or of later complication, without mention of misadventure at the time of the procedure; N18.9 Chronic kidney disease, unspecified; M19.90 Unspecified osteoarthritis, unspecified site; J44.9 Chronic obstructive pulmonary disease, unspecified; M10.9 Gout, unspecified; I48.91 Unspecified atrial fibrillation; Z95.0 Presence of cardiac pacemaker; Z88.8 Allergy status to other drugs, medicaments and biological substances; Z90.49 Acquired absence of other specified parts of digestive tract; Z87.891 Personal history of nicotine dependence; Z88.0 Allergy status to penicillin; Y92.89 Other specified places as the place of occurrence of the external cause
CPT/HCPCS: 10783; 15002; 50101; 50386; 50403; 56526; 62110; 62850; 70005

== ENCOUNTER 2018-04-26 19:39 | Inpatient (IN) | payer OTHER, BC ==
[~2018-04-26] VITALS: Ht 165.1 cm; Wt 102.6 kg
--- NOTE | ~2018-04-26 | HC ---
[facility] [place] [address] CONSULTATION Name: DIXIE KESSLER Low Room #: 227-P [facility] IN M.R.#: [id number] Admission: 04/26/18 Attend Phys: Arias Lui Discharge: Date of : 38 Report #: [id number] THIS REPORT FOR: //name// CC: Pawan Lui DATE OF SERVICE: 04/27/2018 REASON FOR CONSULTATION: I was asked to evaluate concerning the left great toe swelling and erythema in the setting of CLL and hypogammaglobulinemia. HISTORY OF PRESENT ILLNESS: The patient was hospitalized on 04/26/2018 with increased pain, swelling, erythema involving his first MTP joint and first left toe. No fever, chills or sweats. Onset was 2 days ago. No specific trauma. No fever, chills or sweats. Does have onychomycosis, but no recent nail treatments. He has pain upon ambulation. Reports pain on any manipulation of the toe. Has been on cephalexin for chronic suppression, lumbar spine in the setting of recent pacemaker placement several years ago. He had an underlying diskitis and osteomyelitis involving the spine. Unclear whether the pacemaker had been seated at the time of his bacteremia. Elected to give antibiotic suppression instead of attempting lead extraction. He had a Port-A-Cath placed last month that became infected at the Port-A-Cath pocket. Port-A-Cath has been removed. Cultures revealed Pseudomonas aeruginosa. He completed his course of antibiotics following explantation of the port. Wound has been healing in nicely. He has continued anasarca. Has ongoing congestive heart failure and requires diuretics. No nausea, vomiting or diarrhea. No dysuria or frequency. No cough or sputum production. No chest pain. He has had history of gouty arthritis. No flareups in the last year or so. REVIEW OF SYSTEMS: Ten-point review negative other than what has been described above. ALLERGIES: HYDROCODONE. MEDICATIONS: As noted on his MAR. PAST MEDICAL HISTORY, FAMILY HISTORY, SOCIAL HISTORY: Unchanged from his history and physical, which was reviewed. PHYSICAL EXAMINATION: VITAL SIGNS: Afebrile, hemodynamically stable. GENERAL: Alert and cooperative. Unchanged anasarca, mostly involving his upper extremities. Does have 1+ edema involving his lower extremities. His right chest wound was clean, very small with minimal drainage. CHEST: Clear. [facility] [address] [place] [address] CONSULTATION Name: DIXIE KESSLER V Room #: 227-P [facility] IN M.R.#: [id number] Admission: 04/26/18 Attend Phys: Arias Lui Discharge: Date of : 38 Report #: [id number] HEART: Regular without gallop or murmur. ABDOMEN: Soft, obese, nontender. No hepatosplenomegaly or mass. EXTREMITIES: The left great toe and first MCP joint erythematous and exquisitely tender over the joint. Does have changes of onychomycosis. Has some cyanosis to his distal digits bilaterally. Pulses were normal in the foot. Sensation intact. No evidence of advancing cellulitis or lymphangitis into the proximal foot or ankle. LABORATORY STUDIES: Sodium 141, potassium 3.6, bicarbonate 28, creatinine 2.6. X-ray shows degenerative arthritis in the left foot. Uric acid was 10.4. Sedimentation rate 13. Hemoglobin 15.3, platelet count 209,000, white count 12.6 with 70% segs, 16% lymphs. Blood cultures are pending. IMPRESSION: 1. I am suspecting left metacarpophalangeal gouty arthritis. 2. Chronic lymphocytic leukemia and hypogammaglobulinemia. 3. Acute on chronic kidney disease. 4. Anasarca and congestive heart failure. 5. Recent Pseudomonas aeruginosa right Port-A-Cath infection, status post explantation. 6. Continued suppression for lumbar diskitis and permanent pacemaker with methicillin-susceptible Staphylococcus aureus identified. RECOMMENDATION: 1. I agree with current plan for colchicine. Continue with cephalexin as dose for his suppression. 2. Monitor renal function and use of colchicine. 3. I would anticipate improvement within the next 24 hours. If so, should be able to manage this as an outpatient. <ELECTRONICALLY SIGNED> By: Jaison Lee MD 04/28/18 1222 1753 [id number] Jaison Lee MD /nt
--- NOTE | ~2018-04-26 | HC ---
[facility] [place] [address] [place] [address] CONSULTATION Name: DIXIE KESSLER V Room #: 227-P [facility] IN M.R.#: [id number] Admission: 04/26/18 Attend Phys: Arias Lui Discharge: Date of : 38 Report #: [id number] THIS REPORT FOR: //name// CC: Pawan Wood MD REASON FOR CONSULTATION: History of CLL. HISTORY OF PRESENT ILLNESS: The patient is an 78-year-old patient of mine, who was admitted because of probable cellulitis of the left great toe. He noticed some redness Thursday or Thursday that got worse. He went to his local doctor yesterday who had him go to the ER, where he was admitted. He was begun on vancomycin yesterday and his toe is quite a bit less red and less painful. He denies any fevers or chills. He does have chronic lymphedema of his left arm. He is not aware of any new lymph nodes. No new constipation or diarrhea. No blood in his urine or stool. He does have some ongoing bruising like he has had before. PAST MEDICAL HISTORY: Past history is notable for the CLL, currently on ibrutinib since 2014. Also history of hypogammaglobulinemia, history of bilateral knee surgeries, history of carpal tunnel, history of appendectomy, history of COPD/emphysema, history of AFib, history of gout, history of pacemaker in situ and history of port infection in 03/2018. FAMILY HISTORY: Unchanged since last visit. SOCIAL HISTORY: Unchanged since last visit. MEDICATIONS: At this time in the hospital currently include ibrutinib 420 mg daily. The patient given permission to take his own medication when he brings it here. Metoprolol 50 b.i.d., guaifenesin ER 600 b.i.d., amiodarone 200 daily, vancomycin 500 q. 12, ipratropium and albuterol respiratory therapy q.i.d., pantoprazole 20 daily, levothyroxine 25 mcg daily, cephalexin 250 mg p.o. q.8h., IV fluids, Benadryl p.r.n., Tylenol p.r.n., fluticasone 2 sprays daily each nasal and colchicine was given yesterday and completed. LABORATORY DATA: Lab tests include BUN of 26 and creatinine 2.6, usually the patient is closer to 2. Electrolytes fairly normal. Liver functions back in March were normal. Uric acid yesterday was 10.4; in the past, it has been 9.7 and 8.1. White count 12.6; lately, he has been in the 10-12 range. Hemoglobin 15.3, MCV 89.1 and platelets 209,000. Differential has 70.5% segment neutrophils, 16.9% lymphocytes, 11.1% monocytes, 0.8 eos and 0.7 basos. PHYSICAL EXAMINATION: [facility] [address] [place] [address] CONSULTATION Name: DIXIE KESSLER V Room #: 227-P ADM IN M.R.#: [id number] Admission: 04/26/18 Attend Phys: Arias Lui Discharge: Date of : 38 Report #: [id number] GENERAL: The patient appears his stated age. VITAL SIGNS: Height is 5 feet 5, which is 165.1 cm; weight 226.3 pounds or 102.6 kilograms. Blood pressure is 135/62, respirations 16, O2 sat 97, pulse 59 and temperature 97.2. MOOD: The patient is alert and pleasant. and daughter are present. NEUROLOGIC: Face is symmetrical, moving all extremities. LYMPHATICS: No enlarged lymph nodes in the supraclavicular, cervical, axillary or inguinal region. ABDOMEN: Obese, nontender. No masses. EXTREMITIES: The patient does have chronic lymphedema, as before, his left arm more than his right. He does have redness around his left great toe, but they tell me it is regressing. ASSESSMENT AND PLAN: 1. Chronic lymphocytic leukemia. I wrote order for the patient to be on continuous ibrutinib 420 mg daily total dose. 2. Hypogammaglobulinemia. Due today, we will re-defer to next week once the patient is outpatient. 3. Cellulitis. Continue vancomycin and cephalexin. 4. History of lymphedema, stable with pump and wrap. 5. Hypertension. Medications. 6. Atrial fibrillation. Medications. 7. Pacemaker in situ. 8. Chronic obstructive pulmonary disease/emphysema. Continuous medications. 9. Chronic renal insufficiency, stable to slightly up. 10. Gout, status post colchicine. We will follow with you. <ELECTRONICALLY SIGNED> By: Bang Ruiz MD 04/28/18 0656 [id number] [id number] Bang Ruiz MD /nt
[~2018-04-26 19:39] MED LIST changes: +CAL-MAG-ZINC T1 EACH PO; +DOXYCYCLINE HYC50 MG PO; +SYMBICORT160 MCG/4. INH
[2018-04-26 19:42] VITALS: BP 172/60
[2018-04-26 20:26] LABS: ABSOLUTE NEUTROPHILS 8.9 thou/uL (1.4-8.2); BASOPHILS 0.7 % (0.0-2.0); EOSINOPHILS 0.8 % (0.0-3.0); HEMATOCRIT 44.7 % (42.0-52.0); HEMOGLOBIN 15.3 gm/dL (14.0-18.0); LYMPHOCYTES 16.9 % (24.0-44.0); MCH 30.5 pg (26.0-34.0); MCHC 34.2 g/dL (28.0-37.0); MCV 89.1 fL (80.0-100.0); MONOCYTES 11.1 % (1.0-8.0); PLATELET COUNT 209 thou/uL (150-400); POLYS 70.5 % (36.0-66.0); RBC 5.02 mil/uL (4.50-6.00); RDW 15.9 % (10.5-14.5); WBC 12.6 thou/uL (4.0-11.0)
[2018-04-26 20:35] LABS: CALCIUM 8.4 mg/dL (8.5-10.1); CREATININE 2.6 mg/dL (0.7-1.3); POTASSIUM 3.6 mmol/L (3.5-5.1)
[2018-04-26 21:56] VITALS: BP 120/63
[2018-04-26 22:48] VITALS: BP 125/71
[2018-04-26 23:00] VITALS: BP 147/55
[2018-04-27 04:09] VITALS: BP 135/62
[2018-04-27 08:29] VITALS: BP 150/65
[2018-04-27 18:16] VITALS: BP 159/98
[2018-04-27 19:35] VITALS: BP 119/51
[2018-04-28 07:30] VITALS: BP 138/67
[2018-04-28] MEDS ORDERED: COLCHICINE0.6 M1 PO (10:41)
[2018-04-28 11:59] VITALS: BP 138/67
== END 2018-04-28 14:42 | disposition home health service (06) | DRG 683 ==
LOC: ER 19:39 → EROBS 21:47 → 4E 21:47 → SICU 04-27 17:45 → ENTRNSPT 04-28 14:22 → EDTRNSPTSTS 04-28 14:25 → SICU 04-28 14:42
PROVIDERS: Student in an Organized Health Care Education/Training Program
DX: N17.9 Acute kidney failure, unspecified (principal); C91.10 Chronic lymphocytic leukemia of B-cell type not having achieved remission; D80.1 Nonfamilial hypogammaglobulinemia; I13.0 Hypertensive heart and chronic kidney disease with heart failure and stage 1 through stage 4 chronic kidney disease, or unspecified chronic kidney disease; L03.032 Cellulitis of left toe; M10.072 Idiopathic gout, left ankle and foot; M62.84 Sarcopenia; K21.9 Gastro-esophageal reflux disease without esophagitis; I48.91 Unspecified atrial fibrillation; M19.90 Unspecified osteoarthritis, unspecified site; I50.9 Heart failure, unspecified; B95.61 Methicillin susceptible Staphylococcus aureus infection as the cause of diseases classified elsewhere; M46.46 Discitis, unspecified, lumbar region; N18.3 Chronic kidney disease, stage 3 (moderate); J43.9 Emphysema, unspecified; Z87.891 Personal history of nicotine dependence; Z95.0 Presence of cardiac pacemaker; Z90.49 Acquired absence of other specified parts of digestive tract; Z79.51 Long term (current) use of inhaled steroids; Z79.899 Other long term (current) drug therapy; Z88.8 Allergy status to other drugs, medicaments and biological substances
CPT/HCPCS: 10084; 15002

== ENCOUNTER 2018-07-26 17:52 | Inpatient (IN) | payer OTHER, BC ==
[~2018-07-26] VITALS: Ht 162.6 cm; Wt 109.3 kg
--- NOTE | ~2018-07-26 | HC ---
[facility] [place] [address] CONSULTATION Name: CHECODIXIE Low Room #: 426-P ADM IN M.R.#: [id number] Admission: 07/26/18 ������������������ Attend Phys: Arias Lui Discharge: ������������������ Date of : 38 Report #: [id number] THIS REPORT FOR: //name// CC: Pawan Lui REASON FOR CONSULTATION: I was asked to evaluate concerning right lower extremity cellulitis in the setting of recent pneumonia and immunosuppression. HISTORY OF PRESENT ILLNESS: The patient is an 78-year-old who has been followed for CLL and immunodeficiency. He has also congestive heart failure, permanent pacemaker, on antibiotic suppression due to methicillin-susceptible Staph aureus diskitis and bacteremia in the setting of permanent pacemaker placement. He has been on oral antibiotic suppression. The patient was diagnosed with community-acquired pneumonia last week. He was treated in [place], [place]. Discharged on Augmentin. Hospitalized now with increased swelling and pain in his right lower extremity. It is noted that he did develop episode of gouty arthritis involving the right foot during his hospitalization last week. He has been on increased dose of prednisone for this. He was admitted on 07/26/2018. Placed on IV antibiotic therapy including clindamycin. He has had no cough or sputum production. Now, his respiratory status he feels is back to his baseline. He does have some dyspnea on exertion, but no PND or orthopnea. Denies any fever, chills or sweats. Over the last 48 hours, his swelling has diminished in his right leg and the tenderness also has improved. ALLERGIES: HYDROCODONE. MEDICATIONS: As noted on his MAR, which were reviewed. Currently now on clindamycin. PAST MEDICAL HISTORY: CLL, lymphoma, hypogammaglobulinemia, lumbar laminectomy, diskitis, CHF, permanent pacemaker, bilateral total knee arthroplasties, chronic pain, chronic lymphedema, atrial fibrillation, gout, Port-A-Cath. FAMILY HISTORY: Noncontributory. SOCIAL HISTORY: Past smoker, no significant alcohol intake. REVIEW OF SYSTEMS: CONSTITUTIONAL: Denies any fever, chills or sweats. HEENT: He has had no visual changes. No oral lesions noted, although he has developed a lesion to his nares. RESPIRATORY: See HPI. CARDIOVASCULAR: No palpitations or chest pain. GASTROINTESTINAL: Negative. GENITOURINARY: Negative. MUSCULOSKELETAL: Negative. [address] [address] CONSULTATION Name: DIXIE KESSLER V Room #: 426-P [facility] IN M.R.#: [id number] Admission: 07/26/18 ������������������ Attend Phys: Arias Leach Stephaniejacob Discharge: ������������������ Date of : 38 Report #: [id number] SKIN: As above. NEUROLOGIC: Negative. ENDOCRINE: Negative. HEMATOLOGIC: As noted above. PHYSICAL EXAMINATION: GENERAL: He is afebrile and hemodynamically stable. He is sitting on a chair, alert, cooperative, appeared his stated age, no acute distress, conversant. He was obese. SKIN: He had 3+ anasarca, chronic lymphedema involving both upper extremities. He had 2+ edema in his lower extremities. He had some mild venous stasis dermatitis changes. No palpable adenopathy other than a node in the right groin. HEENT: Eyes without conjunctivitis. Mouth without mucositis. Nares with a herpetic lesion to the right naris region. NECK: Supple. LUNGS: Clear to auscultation with no adventitial sounds. HEART: Regular, without murmur, gallop or rub. ABDOMEN: Obese, soft, nontender, no hepatosplenomegaly or mass. BACK: Without CVA tenderness or percussion tenderness along the spine. EXTREMITIES: With 2+ edema in the lower extremities. Pulses were palpable. Sensation intact both lower extremities with no clubbing or cyanosis. NEUROLOGIC: Cranial nerves intact. Sensation in his lower extremities and upper extremities was normal. Strength normal. PSYCHIATRIC: Normal mood. LABORATORY DATA: Laboratory studies reviewed. Microbiology studies reviewed. Chest x-ray reviewed, noting residual right lower lobe infiltrate. IMPRESSION: 1. Right lower lobe pneumonia, on antibiotic therapy. 2. Right lower extremity venous stasis dermatitis changes with secondary cellulitis, now improved. 3. Gouty arthritis. 4. Chronic lymphocytic leukemia. 5. Hypogammaglobulinemia. 6. Right groin node. Unclear if this is a new lesion or old. RECOMMENDATION: We will continue antibiotic coverage with Augmentin through the first of next week. We would continue compression and leg elevation as much as possible to control his peripheral edema. We would have the patient follow up with Oncology regarding the right groin lymphadenopathy. Once the patient has [address] [address] CONSULTATION Name: DIXIE KESSLER V Room #: 426-P ADM IN M.R.#: [id number] Admission: 07/26/18 ������������������ Attend Phys: Arias Lui Discharge: ������������������ Date of : 38 Report #: [id number] completed his course of Augmentin, will switch back to his suppressive cephalexin program. ��������������������������������������������� ���������������������������������������� By: ��������������������������������������������� [id number] Jaison Lee MD /sharyn
[~2018-07-26 17:52] MED LIST changes: +COLCHICINE0.6 M1 PO
[2018-07-26 17:55] VITALS: BP 147/65
[2018-07-26 20:12] LABS: ANION GAP 9 mmol/L (7-16); BUN 49 mg/dL (7-18); CHLORIDE 103 mmol/L (98-107); CO2 30 mmol/L (21-32); CREATININE 2.1 mg/dL (0.7-1.3); GLUCOSE 100 mg/dL (74-106); POTASSIUM 4.1 mmol/L (3.5-5.1); SODIUM 142 mmol/L (136-145)
[2018-07-26 20:13] LABS: HEMATOCRIT 40.2 % (42.0-52.0); HEMOGLOBIN 13.1 gm/dL (14.0-18.0); MCH 27.5 pg (26.0-34.0); MCHC 32.5 g/dL (28.0-37.0); MCV 84.6 fL (80.0-100.0); PLATELET COUNT 295 thou/uL (150-400); RBC 4.75 mil/uL (4.50-6.00); RDW 15.4 % (10.5-14.5); WBC 15.7 thou/uL (4.0-11.0)
[2018-07-26 20:21] LABS: ALBUMIN 3.1 g/dL (3.4-5.0); MAGNESIUM 2.4 mg/dL (1.8-2.4); SGOT 22 U/L (15-37); SGPT 25 U/L (30-65); TOTAL BILIRUBIN 0.4 mg/dL (<0.1-1.0); TOTAL PROTEIN 6.7 g/dL (6.4-8.2); TROPONIN-I <0.06 ng/mL (<0.06)
[2018-07-26 20:31] LABS: ABSOLUTE NEUTROPHILS 12.2 thou/uL (1.4-8.2); ATYPICAL LYMPHS 1 %; MYELOCYTES 1 %
[2018-07-26 20:58] VITALS: BP 147/87
[2018-07-26 21:38] VITALS: BP 124/79
[2018-07-26 22:05] VITALS: BP 194/84
--- NOTE | 2018-07-26 23:44 | NUR ---
ASSESSMENT COMPLETED. PT IS PLEASANT AND COOPERATIVE. IV ABTS STARTED. PT IS ON ROOM AIR. DENIES RESP DISTRESS. BUE WITH LYMPHEMMA. RLE ELEVATED ON PILLOW-SWELLING AND SOME ERYTHEMA NOTED.PT IS AFEBRILE.QUIETLY WATCHING TV AT THIS TIME. CALL LIGHT WITHIN REACH.
[2018-07-27 04:42] VITALS: BP 148/64
[2018-07-27 06:07] LABS: HEMOGLOBIN 12.3 gm/dL (14.0-18.0); MCH 26.7 pg (26.0-34.0); MCHC 31.6 g/dL (28.0-37.0); MCV 84.5 fL (80.0-100.0); RBC 4.61 mil/uL (4.50-6.00); RDW 15.4 % (10.5-14.5); WBC 10.5 thou/uL (4.0-11.0)
[2018-07-27 06:21] LABS: CALCIUM 8.4 mg/dL (8.5-10.1); POTASSIUM 3.9 mmol/L (3.5-5.1)
[2018-07-27 08:08] VITALS: BP 137/56
--- NOTE | 2018-07-27 09:08 | EKG ---
[address] [place] [address] ELECTROCARDIOGRAM REPORT Name: DIXIE KESSLER V Room #: 426-P ADM IN M.R.#: [id number] ������������������ Admission: 07/26/18 ������������������ Attend Phys: Arias Lui Discharge: ������������������ Date of : 38 Report #: [id number] ����������������������������������������������������������������� [id number] THIS REPORT FOR: //name// [facility] ED Test Date: 2018-07-26 Test Time: 19:51:05 Pat Name: DIXIE KESSLER Department: Room: 426 Gender: M Tomography Technologist: : 1940 Requested By: Juan Diego Akbar Order Number: [id number] MD: Morro Cid Measurements Intervals Ace Rate: 60 P: -12 SC: 148 QRS: 3 QRSD: 108 T: 4 QT: 443 QTc: 443 Interpretive Statements Sinus rhythm Borderline T abnormalities, inferior leads Compared to ECG 05/14/2017 12:22:33 No significant changes Electronically Signed On 07-27-2018 9:08:21 [employer]ARM MARK[employer] by Morro Cid [email or web address] ��������������������������������������������� <ELECTRONICALLY SIGNED> ���������������������������������������� By: Morro Cid MD, [facility] ��������������������������������������������� 07/27/18907 50 50 Morro Cid MD, FACC /EPI
[2018-07-27 11:59] VITALS: BP 132/47
--- NOTE | 2018-07-27 12:34 | NUR ---
ASSESSMENT-PT LIVES AT HOME WITH HIS WHO IS A LITTLE OLDER AND SHE USES A WALKER TO GET AROUND DUE 2 PREVIOUS CVA'S. PT WALKS ON HIS OWN OR USES A CANE. HE DOES HAVE A WALKER TOO IF NEEDED. PT DOES HIS OWN ADLS. HE DRIVES. HE DOES THE COOKING, CLEANING AND LAUNDRY. HE HAS A LYMPHEDEMA PUMP HE USES BID FOR 1 HR ON HIS LEFT ARM. HE HAS A DTR OWEN 2 MILES AWAY. THEY HAVE 3 OTHER CHILDREN OUT OF TOWN [place], [place] AND [place]. HE HAS HAD [facility] IN THE PAST. PT VOICES NO CONCERNS RELATED TO DC. FOLLOWING TO ASSIST WITH DC PLANNING.
--- NOTE | 2018-07-27 14:24 | NUR ---
PT WAS ADMITTED COMPLAINING OF CELLULAR EDEMA IN RIGHT LEG. PT HAS LYMPHEDMA IN BOTH ARMS AND IN LEFT LEG. THE LEFT ARM IS WORSE. PT WAS ALERT AND ORIENTED X4 ALL DAY. DURING ASSESSMENT I HEARD FINE CRACKLES IN RLL, BUT PT IS STILL RECOVERING FROM PNEUMONIA. INTERMITTENT, PRODUCTIVE COUGHS ALL DAY. PT HAD BREATHING TREATMNT. AFTER BREAKFAST PT TOOK A SHOWER INDEPENDENTLY, WALKING WITH A WALKER. PT TOLERATED ACTIVITY VERY WELL, SLIGHT SOB. PT WAS SITTING UP IN THE CHAIR WITH LEGS RECLINED FOR THE MOST OF THE DAY.
[2018-07-27 14:41] VITALS: BP 136/46
--- NOTE | 2018-07-27 14:54 | NUR ---
I have reviewed and concur with student documentation.
--- NOTE | 2018-07-27 16:43 | NUR ---
PT BARRETT LE'S WRAPPED ORDERED. TO BE WRAPPED WITH ELENA FROM TOES TO KNEE'S DAILY
[2018-07-27 19:52] VITALS: BP 174/54
--- NOTE | 2018-07-27 22:50 | NUR ---
PT WAS OBSERVED GETTING RT TX IN HIS ROOM AT THE START OF SHIFT.BP ELEVATED AT START OF SHIFT,MEDS ADMINISTERED ORDERED.BLE WITH ELENA WRAP,INTACT.REPORT GIVEN AT 2130 TO ANOTHER NURSE.
[2018-07-28 07:41] VITALS: BP 146/76
--- NOTE | 2018-07-28 10:35 | NUR ---
PT ASSESSED AT START OF SHIFT. BARRETT ARMS VERY EDEMATOUS W/ SOME BLISTERED AREAS. AMBULATED W/ THERAPY IN THE HALLS USING HIS CANE AND WALKED WELL. DID HAVE SOME SOA. AFTER WALKING SAT CHECKED AT 85%-RECOVERED TO 95% AFTER FEW MIN. PT STATES HE NOTICES HE GETS SHORT OF AIR WITH ACTIVITY AT HOME. REPORT GIVEN TO RN AND PT TRANSFERRING TO [facility] AT THIS TIME.
[2018-07-28] MEDS ORDERED: KEFLEX500 M1 PO (11:36)
--- NOTE | 2018-07-28 13:44 | NUR ---
FAXED REFERRAL TO [facility] SPOKE WITH [place] IN ADM. SHE RECEIVED REFERRAL AND WILL REVIEW FOR DC TODAY. DCP TO FOLLOW.
[2018-07-28 13:59] VITALS: BP 146/76
[2018-07-28 15:01] VITALS: BP 146/76
[2018-07-28 16:15] VITALS: BP 146/76
== END 2018-07-28 14:00 | disposition home health service (06) | DRG 314 ==
LOC: ER 17:52 → 4E 20:51 → EROBS 20:51 → 4E 22:13 → ENTRNSPT 07-28 17:25
PROVIDERS: Emergency Medicine; Nurse Practitioner Family; ADMIT Hospitalist
DX: T82.7XXA Infection and inflammatory reaction due to other cardiac and vascular devices, implants and grafts, initial encounter (principal); A41.9 Sepsis, unspecified organism; L03.115 Cellulitis of right lower limb; N18.4 Chronic kidney disease, stage 4 (severe); C91.10 Chronic lymphocytic leukemia of B-cell type not having achieved remission; D80.1 Nonfamilial hypogammaglobulinemia; I13.0 Hypertensive heart and chronic kidney disease with heart failure and stage 1 through stage 4 chronic kidney disease, or unspecified chronic kidney disease; E03.9 Hypothyroidism, unspecified; Y83.8 Other surgical procedures as the cause of abnormal reaction of the patient, or of later complication, without mention of misadventure at the time of the procedure; B35.3 Tinea pedis; M62.84 Sarcopenia; J43.9 Emphysema, unspecified; I50.9 Heart failure, unspecified; M19.90 Unspecified osteoarthritis, unspecified site; I48.91 Unspecified atrial fibrillation; M10.9 Gout, unspecified; G89.29 Other chronic pain; Z88.8 Allergy status to other drugs, medicaments and biological substances; Z90.49 Acquired absence of other specified parts of digestive tract; Z79.51 Long term (current) use of inhaled steroids; Y92.89 Other specified places as the place of occurrence of the external cause; Z79.899 Other long term (current) drug therapy; Z88.5 Allergy status to narcotic agent; Z87.01 Personal history of pneumonia (recurrent); Z87.891 Personal history of nicotine dependence
CPT/HCPCS: 10084

== ENCOUNTER 2019-03-14 16:51 | Inpatient (IN) | payer OTHER, BC ==
[~2019-03-14] VITALS: Ht 162.6 cm; Wt 101.2 kg
[~2019-03-14 16:51] MED LIST changes: +KEFLEX500 M1 PO
[2019-03-14 16:54] VITALS: BP 139/73
[2019-03-14 18:42] LABS: HEMATOCRIT 41.4 % (42.0-52.0); HEMOGLOBIN 13.5 gm/dL (14.0-18.0); MCH 29.4 pg (26.0-34.0); MCHC 32.6 g/dL (28.0-37.0); MCV 90.3 fL (80.0-100.0); PLATELET COUNT 209 thou/uL (150-400); RBC 4.58 mil/uL (4.50-6.00)
[2019-03-14 18:47] LABS: CALCIUM 8.7 mg/dL (8.5-10.1); CREATININE 2.1 mg/dL (0.7-1.3); POTASSIUM 3.5 mmol/L (3.5-5.1)
[2019-03-14 18:52] LABS: ALBUMIN 3.1 g/dL (3.4-5.0); DIRECT BILIRUBIN 0.1 mg/dL (<0.1-0.3); TOTAL BILIRUBIN 0.5 mg/dL (<0.1-1.0); TOTAL PROTEIN 6.8 g/dL (6.4-8.2)
[2019-03-14 19:39] LABS: ABSOLUTE NEUTROPHILS 6.5 thou/uL (1.4-8.2)
[2019-03-14 20:27] VITALS: BP 132/83
--- NOTE | 2019-03-14 20:45 | NUR ---
NEW PT FROM THE ED WITH A DX OF LLL EXT CELLULITIS. PT A&OX4. AMBULATES WITH STANDBY ASSIST AND A WALKER/CANE TO THE BATHROOM. PT IS CURRENTLY ON CHEMO FOR LEUKEMIA. DAUGHTER IS TO BRING IN PT CHEMO MED. PT HAD FLUID DRAINED FROM HIS LEFT KNEE A WEEK AGO. NO C/O PAIN. PT IS GETTING CATHERINE AND PRN NEB TX AND VANCO NO S/S OF DISTRESS. WILL CONT TO MONITOR
[2019-03-14 21:04] VITALS: BP 132/83
[2019-03-14 21:33] VITALS: BP 174/89
[2019-03-15] MEDS ORDERED: KEFLEX500 M1 PO (03:26)
[2019-03-15 08:00] VITALS: BP 146/68
--- NOTE | 2019-03-15 14:38 | NUR ---
PT ADMITTED RELATED TO CELLULITIS OF L LEG. CM REVIEWED CHART AND SPOKE WITH CARE TEAM. CM MET WITH PT AT BEDSIDE THIS DAY. PT IS A&O X4. CM ROLE INTRODUCED. PT INDICATED HE LIVES IN A HOUSE WITH HIS SPOUSE WITH 3 STEPS TO ENTER AND NO STEPS INSIDE. PT INDICATED HE HAS A CANE AND A FWW TO ASSIST WITH MOBILITY UPON DC. 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 PT INDICATED HE PLANS TO RETURN HOME ONCE MEDICALLY STABLE. CM TO FOLLOW INDICATED WITH DC PLANNING.
[2019-03-15 15:00] VITALS: BP 127/67
--- NOTE | 2019-03-15 16:32 | NUR ---
Assumed pt care this am, pt has edema on all extremities. Wheezing has been noted. Awaiting chemo medication coming from the daughter. Pt is able to get up with a walker and gait belt initially with ease, he is steady on his gait and is good as a standby assists. Pt has no issues voiding and is able to get up and go to the toilet. Pt is post knee aspiration a week ago. Redness in foot and 2nd toe. NM Bone scan of the whole body requested and as per IR this can be done dudley mid morning. Above the knee anni hoslisa ordered, to be applied. POC followed, no signs or verbalizations of distress have been noted, will continue to monitor,
[2019-03-15 19:27] VITALS: BP 164/60
--- NOTE | 2019-03-16 03:43 | NUR ---
ASSUMED CARE AROUND 1900. AXOX3. CALLS APPROPIRATELY. ASHWINI HOSE APPLIED TO R LEG. HOWEVER, L LEG IS STILL SWOLLEN AND RED FROM CELLULITS. CALLED HANNAH GARRETT GATE SHEAR OPERATOR FOR AND ASKED ABOUT WHETHER TO PUT OR NOT TO PUT ASHWINI ON L LEG. PER GLASS TINTER, DO NOT PUT ASHWINI RIGHT NOW ON L LEG AND HAVE THE DAY RN CONFIRM WITH PHYSICIAN IN AM FOR CLARIFICATION. WILL GIVE REPORT TO DAY RN TO FOLLOW UP. NO S/S ACUTE DISTRESS NOTED OR REPORTED AT THIS TIME. WILL CONT TO MONITOR FOR ANY CHANGES IN CONDITION.
[2019-03-16 05:03] VITALS: BP 148/52
[2019-03-16 07:31] VITALS: BP 147/59
[2019-03-16 10:20] LABS: CALCIUM 8.8 mg/dL (8.5-10.1); POTASSIUM 4.2 mmol/L (3.5-5.1)
--- NOTE | 2019-03-16 10:37 | HC ---
[facility] [place] [address] CONSULTATION Name: DIXIE KESSLER V Room #: 460-P [facility] IN M.R.#: [id number] Admission: 03/14/19 Attend Phys: Arias Lui Discharge: Date of : 38 Report #: [id number] THIS REPORT FOR: //name// CC: Pawan Wood DATE OF SERVICE: 03/15/2019 INFECTIOUS DISEASE CONSULTATION REASON FOR CONSULTATION: I was asked to evaluate concerning left lower extremity infection. 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 He has been on cephalexin for lumbar diskitis and osteomyelitis and permanent pacemaker. He remains on Keflex. He has a left prosthetic knee, longstanding. Last week, noticed increased pain and swelling. He has chronic lymphedema. Pain in his knee worsened and he was seen by Orthopedic Surgery, who aspirated his knee. I have not seen those results. Also, developed left second toe swelling and tenderness. No specific injury. Denies any chills, but has noticed low-grade fever. He has had no prior history of infection in the joint. ALLERGIES: HYDROCODONE. MEDICATIONS: Torsemide, cranberry, amiodarone, Mucinex, metoprolol, Imbruvica, Cephalexin, Flonase, Advair, potassium, Ventolin, Synthroid, Symbicort, vitamin, Prilosec, Spiriva. Now on vancomycin. PAST MEDICAL HISTORY: CLL, chronic sinusitis, degenerative arthritis, back surgery, bilateral total knee arthroplasties, carpal tunnel release, appendectomy, umbilical herniorrhaphy, COPD, emphysema, lumbar laminectomy in 2014, atrial fibrillation, gout, permanent pacemaker, diskitis, Port-A-Cath, hypogammaglobulinemia, polymyalgia rheumatica, diastolic heart failure, chronic kidney disease, anasarca, atrial fibrillation, permanent pacemaker. FAMILY HISTORY: Noncontributory. SOCIAL HISTORY: Past smoker, no significant alcohol intake. REVIEW OF SYSTEMS: Denies any cough or sputum production. No nausea, vomiting or diarrhea. No dysuria or frequency. A 10-point review was negative other than what has been described above. PHYSICAL EXAMINATION: VITAL SIGNS: He is afebrile and hemodynamically stable. [address] [address] CONSULTATION Name: DIXIE KESSLER V Room #: 460-P [facility] IN .R.#: [id number] Admission: 03/14/19 Attend Phys: Arias Lui Discharge: Date of : 38 Report #: [id number] GENERAL: He is alert and cooperative and pleasant, in no acute distress. He had 2+ anasarca. EXTREMITIES: The left second toe was erythematous and tender. There was some erythema extending up to the distal forefoot. He had some venous stasis dermatitis changes. Mild tinea pedis. Left groin node palpable. EYES: Without scleral icterus. MOUTH: Without mucositis. NECK: Supple. LUNGS: Decreased breath sounds bilaterally. HEART: Regular, without murmur, gallop or rub. ABDOMEN: Soft and nontender. Moderate obesity. No hepatosplenomegaly or mass. NEUROLOGIC: Cranial nerves intact. Strength in upper and lower extremities is normal. Sensation intact. Mood normal. LABORATORY STUDIES: X-rays reported by Orthopedic Surgery notes malalignment of his left total knee arthroplasty without evidence of fracture. Aspiration of the left knee showed 2100 WBCs, without left shift. Cultures were pending. ESR 20, CRP 86. Bone scan is pending. CT scan showed loosening of the hardware without evidence of fracture or osteomyelitis changes. CRP 51. Hemoglobin 13.5, WBC 9, and platelet count 209,000. Creatinine 2.1. IMPRESSION: An 79-year-old with left lower extremity second toe soft tissue infection. This is in the setting of peripheral edema and left knee tibial loosening. He does have elevated inflammatory markers, hard to know how much of this is related to his CLL and how much is related to infection. He does have elevated white blood cell count in his left knee fluid. I am awaiting culture results. Therefore, the patient has prosthetic joint with loosening of the tibial component. This is in the setting of chronic antibiotic suppression. We may not be able to grow bacteria even if it is infected. This will need to be discussed following initial culture results. 1. Left second toe soft tissue infection. 2. Gout could be playing a role here. 3. CLL, on immunosuppression. 4. Congestive heart failure with chronic peripheral edema. 5. Previous methicillin-susceptible Staph aureus, vertebral osteomyelitis in the setting of recent permanent pacemaker and immunosuppression, who has been on antibiotic long-term suppression for several years. RECOMMENDATIONS: Obtain x-rays of his toe. Treat for gout as well as infection. Await cultures of his left prosthetic knee fluid and we will then need to decide our next step in the evaluation. <ELECTRONICALLY SIGNED> By: Jaison Lee MD 03/16/19 [id number] Jaison Lee MD /nt
--- NOTE | 2019-03-16 15:38 | NUR ---
CARE TEAM INDICATED THAT PT WILL LIKELY BE MEDICALLY STABLE TO DC HOME [facility] TOMORROW. CM TO FOLLOW INDICATED WITH DC PLANNING.
[2019-03-16 16:10] VITALS: BP 120/56
--- NOTE | 2019-03-16 19:47 | NUR ---
Assumed pt care this am, edema still present on al extremities, anni hose applied to the right leg. As per Dr. Capps it is ok to put on the anni hose on the left leg and to make adjustments on the toe if the pt feel uncomfortable. Bone scans done today, pt went down 2x. No signs or verbalizations of distress have been noted, pt denies any pain. Left leg and the 2nd toe are still red but have improved compared to yesterday. Pt is able to ambulate with a walker within the room and transfer from the reclined, pt stayed on the recliner for most of the day. WBAT for the left knee maintained. POC followed, medications and diet is tolerated. Endorsed to the night nurse.
[2019-03-16 20:10] VITALS: BP 146/59
--- NOTE | 2019-03-17 02:14 | NUR ---
ASSUMED CARE AROUND 1900. AXOX4. ASHWINI HOSE APPLIED TO BILATERAL LEGS NOW. IV WAS INFILTRATED IN THE BEGINNING OF THE SHIFT. ER FROM [facility] INSERTED LONG 20G IN MICHAEL, TOLERATED VERT WELL. NO S/S ACUTE DISTRESS NOTED OR REPORTED AT THIS TIME. WILL CONT TO MONITOR FOR ANY CHANGES IN CONDITION.
[2019-03-17 08:00] VITALS: BP 128/80
--- NOTE | 2019-03-17 14:18 | NUR ---
DISCHARGE PLANNING. ANTICIPATED DISCHARGE PLANNED FOR TOMORROW. HOME HEALTH RECOMMENDED AT DISCHARGE. PATIENT REFERRAL FAXED TO [facility]. CALL PLACED TO ERIC TO NOTIFY OF REFERRAL. ERIC TO REVIEW AND NOTIFY CM. FOLLOWING.
[2019-03-17 15:00] VITALS: BP 156/85
[2019-03-17 16:07] LABS: CLARITY SL CLOUDY; COLOR YELLOW; SOURCE SYNOVIAL; TOTAL VOLUME 20 mL
[2019-03-17 16:40] LABS: BF NUCLEATED CELLS 1021; BF RBC 6282
[2019-03-17 16:59] LABS: BF CRYSTALS No Crystals seen
[2019-03-17 17:26] LABS: BF NEUTROPHILS 19
[2019-03-17 17:27] LABS: BF MACROPHAGE 37
--- NOTE | 2019-03-17 17:58 | NUR ---
PT HAS REMAINED IN CHAIR ENTIRE SHIFT EXCEPT FOR LEFT KNEE ASPIRATION. PT AMBULATES WITH STEADY GAIT WITH WHEELED WALKER.
[2019-03-17 19:45] VITALS: BP 126/43
--- NOTE | 2019-03-18 03:47 | NUR ---
ASSUMED CARE OF PT AT 1900HRS. PT IS AOX4 AND LETS NEEDS BE KNOWN. FALL PRECAUTION IN PLACE. ABX TREATMENT CONTINUED. PT SPENT ENTIRE SHIFT ON THE RECLINER AND FINDS IT TO BE MORE COMFORTABLE THAN THE BED. PT WAS ABLE TO SLEEP PART OF THE SHIFT. VSS AND NO S/S OF ACUTE DISTRESS. WILL CONTINUE TO MONITOR.
[2019-03-18 04:04] VITALS: BP 137/45
[2019-03-18 08:58] VITALS: BP 139/49
[2019-03-18 14:23] VITALS: BP 141/64
[2019-03-18 16:04] VITALS: BP 141/64
--- NOTE | 2019-03-18 16:06 | NUR ---
WE ARE AWAITING ID RECS AND RESULTS OF INDIUM SCAN. [facility] PHONE: FAX: . CM FOLLOWING REGARDING DC PLANNING.
--- NOTE | 2019-03-18 18:40 | NUR ---
Assumed pt care this am, VS stable pt is steady on his gaite and able to walk from the bed to the toilet with ease with his wheeled walker. Stayed on his recliner for most of the day in his recliner. All extremities are swollen left leg is +2 with cellulitis with the second toe mild redness is still noted. Kelvin hose in place, cream placed on toes. Home medication discussed and restarted hisa "water pill". No pain was verbalized, no signs or verbalizations of distress have been noted.
[2019-03-18 19:53] VITALS: BP 137/49
[2019-03-19 04:29] VITALS: BP 124/61
--- NOTE | 2019-03-19 04:38 | NUR ---
Pt. rested quietly at intervals during the night when checked on during frequent rounds. He denies any pain. Up to the bathroom with one assist and walker. Iv infiltrated and new iv was replaced. Pt. refuses to sleep in the bed and prefers to be in the recliner chair. Chair alarm is on.
[2019-03-19 08:22] VITALS: BP 127/68
[2019-03-19] MEDS ORDERED: TERBINAFINE HCL30 GM TOP (09:25)
[2019-03-19] MEDS ORDERED: KEFLEX500 M1 PO (09:26)
--- NOTE | 2019-03-19 11:53 | NUR ---
Received awake on chair. A+O. On room air. Vital signs stable. With SL at R AC- intact and flushing well. Pt prefers to sit on the recliner. Falls risk- falls bundle in place, able to use walker and gait belt with AO1. Pt seen by Dr Lui, discharge orders made- a/w HH set up- will inform television station manager CM. Pt seen by Dr Strong- can be discharged from ortho standpoint- follow up after [address] Asim Lee's office re: if he has additional discharge instructions for the patient, a/w call back.
[2019-03-19 14:35] VITALS: BP 134/42
== END 2019-03-19 15:30 | disposition home or self-care (01) | DRG 560 ==
LOC: ER 16:51 → 4W 19:35 → EROBS 19:35 → 4W 20:58
PROVIDERS: Emergency Medicine; Nurse Practitioner Family; ADMIT Hospitalist
PROC: 0S9D3ZZ Drainage of Left Knee Joint, Percutaneous Approach (ICD-10-PCS; principal; 2019-03-17)
DX: T84.54XA Infection and inflammatory reaction due to internal left knee prosthesis, initial encounter (principal); L03.116 Cellulitis of left lower limb; J96.10 Chronic respiratory failure, unspecified whether with hypoxia or hypercapnia; C91.10 Chronic lymphocytic leukemia of B-cell type not having achieved remission; I13.0 Hypertensive heart and chronic kidney disease with heart failure and stage 1 through stage 4 chronic kidney disease, or unspecified chronic kidney disease; Y83.8 Other surgical procedures as the cause of abnormal reaction of the patient, or of later complication, without mention of misadventure at the time of the procedure; J43.9 Emphysema, unspecified; M10.9 Gout, unspecified; I50.9 Heart failure, unspecified; N18.3 Chronic kidney disease, stage 3 (moderate); D75.89 Other specified diseases of blood and blood-forming organs; E66.01 Morbid (severe) obesity due to excess calories; I48.91 Unspecified atrial fibrillation; M19.90 Unspecified osteoarthritis, unspecified site; E03.9 Hypothyroidism, unspecified; B35.1 Tinea unguium; Z79.1 Long term (current) use of non-steroidal anti-inflammatories (NSAID); Z79.899 Other long term (current) drug therapy; Z88.5 Allergy status to narcotic agent; Z90.49 Acquired absence of other specified parts of digestive tract; Z87.891 Personal history of nicotine dependence; Y92.89 Other specified places as the place of occurrence of the external cause; Z95.0 Presence of cardiac pacemaker; Z80.3 Family history of malignant neoplasm of breast; Z68.38 Body mass index [BMI] 38.0-38.9, adult; Z22.321 Carrier or suspected carrier of Methicillin susceptible Staphylococcus aureus; Z23 Encounter for immunization
CPT/HCPCS: 10040

== ENCOUNTER 2019-03-29 13:35 | Inpatient (IN) | payer OTHER, BC ==
[~2019-03-29] VITALS: Ht 162.6 cm; Wt 102.5 kg
[~2019-03-29 13:35] MED LIST changes: +TERBINAFINE HCL30 GM TOP
[2019-03-29 13:38] VITALS: BP 143/98
[2019-03-29 14:48] LABS: ABSOLUTE NEUTROPHILS 14.1 thou/uL (1.4-8.2); BASOPHILS 1.2 % (0.0-2.0); EOSINOPHILS 0.1 % (0.0-3.0); HEMATOCRIT 40.1 % (42.0-52.0); LYMPHOCYTES 7.5 % (24.0-44.0); MCH 29.3 pg (26.0-34.0); MCHC 32.5 g/dL (28.0-37.0); MCV 90.4 fL (80.0-100.0); MONOCYTES 11.8 % (1.0-8.0); PLATELET COUNT 212 thou/uL (150-400); POLYS 79.4 % (36.0-66.0); RBC 4.44 mil/uL (4.50-6.00); RDW 16.1 % (10.5-14.5); WBC 17.7 thou/uL (4.0-11.0)
[2019-03-29 14:53] LABS: ANION GAP 7 mmol/L (7-16); BUN 37 mg/dL (7-18); CALCIUM 8.7 mg/dL (8.5-10.1); CHLORIDE 98 mmol/L (98-107); CO2 30 mmol/L (21-32); CREATININE 2.5 mg/dL (0.7-1.3); GLUCOSE 122 mg/dL (74-106); POTASSIUM 3.3 mmol/L (3.5-5.1); SODIUM 135 mmol/L (136-145)
[2019-03-29 15:00] LABS: ALBUMIN 2.9 g/dL (3.4-5.0); SGOT 11 U/L (15-37); TOTAL BILIRUBIN 0.9 mg/dL (<0.1-1.0); TOTAL PROTEIN 7.1 g/dL (6.4-8.2); URIC ACID* 7.1 mg/dL (2.6-7.2)
[2019-03-29 15:15] LABS: SGPT < 5 U/L (30-65)
[2019-03-29 15:45] LABS: URINE BILIRUBIN NEGATIVE (Negative); URINE BLOOD TRACE (Negative); URINE CLARITY CLEAR; URINE COLOR YELLOW; URINE GLUCOSE-RANDOM* NEGATIVE (Negative); URINE KETONES NEGATIVE (Negative); URINE LEUKOCYTES-REFLEX NEGATIVE (Negative); URINE NITRITE-REFLEX NEGATIVE (Negative); URINE PROTEIN (DIPSTICK) NEGATIVE (Negative); URINE UROBILINOGEN 0.2 E.U./dl (0.2-1.0)
[2019-03-29 16:56] VITALS: BP 140/50
[2019-03-29 17:04] VITALS: BP 140/50
[2019-03-29 17:30] VITALS: BP 140/50
--- NOTE | 2019-03-29 19:11 | NUR ---
[age] YE[age] OLD MALE ADMITTED TO [facility] ROOM [address] RUIZ. PT WAS BROUGHT INTO THE ER PER FAMILY DUE TO INCREASE PAIN ALL OVER AND WEAKNESS. PT IS ALERT AND ORIENTED TIMES FOUR. VSS, PT DENIES PAIN/SOA ON ADMIT ASSESSMENT. PT UP WITH STANDBY ASSIST. PT FAMILY AT BEDSIDE DURING ADMISSION. WILL CONTINUE TO MONITOR.
[2019-03-29 21:35] VITALS: BP 141/53
[2019-03-30 05:30] LABS: HEMATOCRIT 38.8 % (42.0-52.0); HEMOGLOBIN 12.5 gm/dL (14.0-18.0); MCH 29.3 pg (26.0-34.0); MCHC 32.3 g/dL (28.0-37.0); MCV 90.7 fL (80.0-100.0); PLATELET COUNT 218 thou/uL (150-400); RBC 4.27 mil/uL (4.50-6.00); RDW 16.3 % (10.5-14.5); WBC 12.5 thou/uL (4.0-11.0)
[2019-03-30 06:43] LABS: ABSOLUTE NEUTROPHILS 9.3 thou/uL (1.4-8.2)
[2019-03-30 06:44] LABS: ANISOCYTOSIS 1+; PLATELET ESTIMATE NORMAL; POIKILOCYTOSIS 1+
[2019-03-30 07:50] VITALS: BP 130/63
--- NOTE | 2019-03-30 07:58 | NUR ---
PATIENT ALERT AND ORIENTED X4. UP TO BATHROOM WITH SBA AND WALKER. USES URINAL WELL. ALUTIIQ. ACCUCHECK WAS 88, RECIEVED NO COVERAGE. ALL EXT. EDENATOUS. SLEPT OFF AND ON DURING NIGHT, C/O PAIN ONLY WHEN HE MOVES AROUND.
[2019-03-30 11:00] VITALS: BP 117/48
--- NOTE | 2019-03-30 13:11 | NUR ---
DC ORDERS RECEIVED. IV REMOVED FROM L HAND. REPORT GIVEN TO [facility]. PT HAS A SKIN TEAR TO L NUNEZ. PICTURE TAKEN.
--- NOTE | 2019-03-30 14:37 | NUR ---
ASSESSMENT-PT LIVES AT HOME WITH HIS WHO IS A LITTLE OLDER AND USES A WC OR A WALKER TO GET AROUND. PT USES A CANE TO GET AROUND AND DOES HIS ADLS. HE HAS A FWW AT HOME TOO BUT NOT USING IT. HE IS ON SERVICE WITH [facility]. HE HAD BEEN DOING THE COOKING, CLEANING AND LAUNDRY TILL HE GOT SICK AND NOW THEIR DTR OWEN HAS BEEN HELPING SOME. THEY HAVE 3 OTHER CHILDREN BUT ALL OUT OF STATE. PT WOULD LIKE HH SERVICES CONTINUED AT [place]. FOLLOWING TO ASSIST WITH DC PLANNING.
[2019-03-30 15:10] VITALS: BP 125/51
[2019-03-30 18:41] VITALS: BP 101/41
[2019-03-30 19:38] VITALS: BP 130/88
--- NOTE | 2019-03-31 04:25 | NUR ---
PATIENT ALERT AND ORIENTED X4. C/O VERY MILD PAIN, DOES NOT WANT PAIN MED. UP TO BATHROOM BY SELF. SLEPT MOST OF NIGHT.
--- NOTE | 2019-03-31 06:34 | NUR ---
PATIENT ALERT AND ORIENTED X4. SLEPT IN CHAIR PART OF NIGHT. DENIES PAIN. ALL EXT EDEMATOUS. UP WITH SBA AND WALKER. SLEPT MOST OF NIGHT.
[2019-03-31 08:05] VITALS: BP 123/62
--- NOTE | 2019-03-31 10:37 | NUR ---
PT A&OX4, IV INTACT IN [place]. AMBULATES WITH STANDBY ASSIST AND WALKER. BLOOD DRAWN FOR BONE SCAN TODAY. DENIES ANY PAIN AT THIS TIME. WILL CONT POC.
--- NOTE | 2019-03-31 12:53 | HC ---
[facility] [place] [address] CONSULTATION Name: DIXIE KESSLER V Room #: 448-P [facility] IN M.R.#: [id number] Admission: 03/29/19 Attend Phys: Arias Lui Discharge: Date of : 38 Report #: [id number] THIS REPORT FOR: //name// CC: Pawan Lui DATE OF SERVICE: 03/30/2019 INFECTIOUS DISEASE CONSULTATION REASON FOR CONSULTATION: I was asked to evaluate concerning bilateral foot pain associated with leukocytosis and consideration of left total knee arthroplasty, prosthetic joint infection and chronic lymphocytic leukemia, on immunosuppression. HISTORY OF PRESENT ILLNESS: The patient is an 79-year-old with underlying CLL and hypogammaglobulinemia. Hospitalized on 03/14/2019 with left second toe soft tissue infection. This was in the setting of workup for possible prosthetic joint infection involving his left total knee arthroplasty. Aspiration showed elevated white count, but the fluid was lost in the laboratory and not cultured. Repeat aspiration showed 1000 cells, mostly macular sites. Follow up cultures while on antibiotics were negative. Had a bone scan, which showed defect around the tibial component. Indeterminant if benign loosening or infection. Indium scan was ordered, but has not yet been performed. He was discharged on March 17 to continue with cephalexin. His toe improves significantly during his four day hospital stay. He has chronic lymphedema of all 4 extremities. This was controlled a bit better while he was hospitalized. Following discharge, he had acute onset of pain involving both feet. Because of such, he was rehospitalized. The onset of his pain was only 2 days ago. He has had no fever, chills or sweats. He has had generalized weakness. REVIEW OF SYSTEMS: No cardiopulmonary or GI or complaints. No other arthritis symptoms other than in his feet. Actually states that his knee feels better. He has had no visual complaints or bleeding issues. He received his immunoglobulin this past week. ALLERGIES: HYDROCODONE. MEDICATIONS: As noted on his MAR including topical terbinafine and cephalexin 1 g b.i.d. in addition to Demadex, cranberry, Pacerone, Mucinex, Lopressor, Imbruvica, Flonase, Advair, potassium, Synthroid, Symbicort, calcium, Prilosec, Spiriva. PAST MEDICAL HISTORY, FAMILY HISTORY AND SOCIAL HISTORY: Unchanged from his history and physical and that of my previous consultation earlier in the month. [facility] [address] [place] [address] CONSULTATION Name: DIXIE KESSLER V Room #: 448-P [facility] IN .R.#: [id number] Admission: 03/29/19 Attend Phys: Arias Lui Discharge: Date of : 38 Report #: [id number] PHYSICAL EXAMINATION: VITAL SIGNS: He is afebrile and hemodynamically stable. GENERAL: He is alert and cooperative. He is sitting up to the side of the bed. He had 4+ peripheral edema in both upper and lower extremities. EYES: Without scleral icterus. MOUTH: Without mucositis. NECK: Supple, thick. LUNGS: Clear. HEART: Regular, without murmur. ABDOMEN: Soft, obese, and nontender with no appreciable masses or hepatosplenomegaly. He did have a ventral hernia, which was nontender. GENITAL RECTAL: Not performed. EXTREMITIES: Left knee incision was well approximated. No surrounding erythema. Range of motion was reasonable. Examination of both feet showed tenderness in the bilateral first MTP joints. These were exquisitely tender to touch. Mild tenderness also in the ankle joints. Other metatarsals nontender. Hands and wrists nontender. Good range of motion in his hips. Sensation in upper and lower extremities was normal. Strength in his upper and lower extremities was symmetric. NEUROLOGIC: Cranial nerves intact. LABORATORY STUDIES: Blood cultures are negative today. Hemoglobin 12.5, WBC 12.5, platelet count 218,000. Differential unremarkable. Initial CBC was 17,000. Chest x-ray, basilar atelectasis. CRP 210. Urinalysis unremarkable. Sodium 135, potassium 3.3, creatinine 2.5. Liver function test normal. Blood cultures negative today. Culture of his left knee aspirate 03/17/2019 negative bacteria and so far negative fungus culture. IMPRESSION: 1. An 79-year-old with underlying CLL, hypogammaglobulinemia, immunosuppressed on Imbruvica. Does receive immunoglobulin infusions. He has chronic lymphedema upper and lower extremities. He has had a painful left total knee arthroplasty. So far no conclusive evidence of prosthetic joint infection. 2. Suspect acute presentation is due to have a gouty flare. Symptoms seem very similar to his previous gout episodes in the past. Pain seems predominantly in his first MTP joints and ankles. The patient has chronic congestive heart failure. Remains on cephalexin suppression due to high-grade methicillin-susceptible Staph aureus bacteremia with vertebral osteomyelitis in the setting of recent permanent pacemaker placement. He has been on this treatment program for several years and has tolerated it well. RECOMMENDATIONS: We will continue workup of his knee with Indium scan post discharge. We treated his gouty flare and we will continue suppression with cephalexin. Continue to work on edema control. He does have chronic kidney [address] [address] CONSULTATION Name: DIXIE KESSLER V Room #: 448-P ADM IN M.R.#: [id number] Admission: 03/29/19 Attend Phys: Arias Lui Discharge: Date of : 38 Report #: [id number] disease with mild worsening in his renal function, which will need to be followed closely. <ELECTRONICALLY SIGNED> By: Jaison Lee MD 03/31/19 [id number] Jaison Lee MD /nt
[2019-03-31 20:25] VITALS: BP 96/57
--- NOTE | 2019-04-01 06:24 | NUR ---
PATIENT ALERT AND ORIENTED X4. UP AND ABOUT IN ROOM. SHOWER TAKEN THIS AM. SLEPT MOST OF THE NIGHT. HAD SLIGHT TEMP OF 99.4. TYLENOL GIVEN. DENIES PAIN.
[2019-04-01 07:03] LABS: HEMATOCRIT 43.9 % (42.0-52.0); HEMOGLOBIN 14.1 gm/dL (14.0-18.0); MCV 90.5 fL (80.0-100.0); RBC 4.86 mil/uL (4.50-6.00); RDW 16.1 % (10.5-14.5); WBC 14.2 thou/uL (4.0-11.0)
[2019-04-01 07:55] VITALS: BP 153/80
[2019-04-01] MEDS ORDERED: GABAPENTIN 100100 MG PO (10:32)
[2019-04-01] MEDS ORDERED: ULTRAM50 MG PO (10:33)
[2019-04-01] MEDS ORDERED: PREDNISONE 20 M20 M1 PO (10:50)
[2019-04-01 13:45] VITALS: BP 153/80
--- NOTE | 2019-04-01 13:53 | NUR ---
DISCHARGE ORDERS COMPLETED PER ATTENDING. PATIENT DISCHARING TO HOME WITH [facility]. PATIENT ON SERVICE WITH [facility]. DISCHARGE/HOME HEALTH ORDERS FAXED TO [facility]. CALL PLACED TO ERIC TO NOTIFYERIC TO FACILITATE PATIENTS HH NEEDS.
--- NOTE | 2019-04-01 16:58 | NUR ---
ASSUMED CARE AROUND 0715. AXOX4. INDIUM SCAN NEGATIVE. PT WAS SEEN BY . D/C ORDERS RECEIVED. SHORTLY AFTER, RECEIVED A CALL FROM DTR THAT DTR THINKS D/C IS PREMATURE. HIMSELF SPOKE TO PT'S DTR AND CAME TO AN AGREEMENT FOR D/C. IV REMOVED, PRESCRIPTION GIVEN TO PT WELL D/C INSTRUCTION. SON IN LAW WAS ALSO PRESENT. ALL QUESTIONS ANSWERED. BELONGINGS SENT WITH PT. LEFT IN STABLE CONDITION.
== END 2019-04-01 17:04 | disposition home health service (06) | DRG 554 ==
LOC: ER 13:35 → 4S 16:07 → EROBS 16:07 → 4S 17:30 → ENTRNSPT 04-01 16:29 → 4S 04-01 17:04
PROVIDERS: Emergency Medicine; ADMIT Hospitalist
DX: M10.072 Idiopathic gout, left ankle and foot (principal); C91.10 Chronic lymphocytic leukemia of B-cell type not having achieved remission; D80.1 Nonfamilial hypogammaglobulinemia; I50.30 Unspecified diastolic (congestive) heart failure; I13.0 Hypertensive heart and chronic kidney disease with heart failure and stage 1 through stage 4 chronic kidney disease, or unspecified chronic kidney disease; M19.90 Unspecified osteoarthritis, unspecified site; G89.29 Other chronic pain; I48.91 Unspecified atrial fibrillation; J43.9 Emphysema, unspecified; N18.3 Chronic kidney disease, stage 3 (moderate); M79.10 Myalgia, unspecified site; G62.9 Polyneuropathy, unspecified; I89.0 Lymphedema, not elsewhere classified; N28.89 Other specified disorders of kidney and ureter; Z90.49 Acquired absence of other specified parts of digestive tract; Z95.0 Presence of cardiac pacemaker; Z88.6 Allergy status to analgesic agent; Z87.891 Personal history of nicotine dependence; Z80.3 Family history of malignant neoplasm of breast
CPT/HCPCS: 10195

== ENCOUNTER 2019-04-12 11:24 | Emergency (ER) | payer OTHER, BC ==
[~2019-04-12] VITALS: Ht 162.6 cm; Wt 100.7 kg
[~2019-04-12 11:24] MED LIST changes: +GABAPENTIN 100100 MG PO; +PREDNISONE 20 M20 M1 PO; +ULTRAM50 MG PO
[2019-04-12 14:25] LABS: HEMATOCRIT 39.2 % (42.0-52.0); HEMOGLOBIN 12.7 gm/dL (14.0-18.0); MCH 29.4 pg (26.0-34.0); MCHC 32.4 g/dL (28.0-37.0); MCV 90.8 fL (80.0-100.0); PLATELET COUNT 222 thou/uL (150-400); RBC 4.32 mil/uL (4.50-6.00); RDW 16.9 % (10.5-14.5); WBC 13.1 thou/uL (4.0-11.0)
[2019-04-12 14:28] LABS: CALCIUM 9.1 mg/dL (8.5-10.1); CREATININE 2.2 mg/dL (0.7-1.3)
[2019-04-12 14:51] LABS: ABSOLUTE NEUTROPHILS 10.3 thou/uL (1.4-8.2); ANISOCYTOSIS 1+; POLYCHROMASIA OCCASIONAL
[2019-04-12] MEDS ORDERED: ULTRAM 50MG TAB50 MG PO (15:59)
[2019-04-12 16:16] VITALS: BP 144/71
[2019-04-13] MEDS ORDERED: TRAMADOL 50 MG50 MG PO (20:46)
[2019-04-13] MEDS ORDERED: ALLOPURINOL 10100 M1 PO (22:58)
[2019-04-13] MEDS ORDERED: IMDUR 60 MG TAB60 M1 PO (23:07)
== END 2019-04-12 16:16 | disposition home or self-care (01) ==
LOC: ER 11:24
PROVIDERS: Emergency Medicine
DX: I89.0 Lymphedema, not elsewhere classified (principal); I48.91 Unspecified atrial fibrillation; J44.9 Chronic obstructive pulmonary disease, unspecified; M19.90 Unspecified osteoarthritis, unspecified site; M10.9 Gout, unspecified; N18.3 Chronic kidney disease, stage 3 (moderate); Z90.49 Acquired absence of other specified parts of digestive tract; Z95.0 Presence of cardiac pacemaker; Z87.891 Personal history of nicotine dependence; Z88.6 Allergy status to analgesic agent

== ENCOUNTER 2019-04-13 16:02 | Inpatient (IN) | payer OTHER, BC ==
[~2019-04-13] VITALS: Ht 162.6 cm; Wt 99.8 kg
[~2019-04-13 16:02] MED LIST changes: +ULTRAM 50MG TAB50 MG PO
[2019-04-13 16:03] VITALS: BP 109/29
[2019-04-13 16:32] LABS: HEMATOCRIT 40.1 % (42.0-52.0); HEMOGLOBIN 12.8 gm/dL (14.0-18.0); MCH 29.1 pg (26.0-34.0); MCHC 31.9 g/dL (28.0-37.0); PLATELET COUNT 233 thou/uL (150-400); RBC 4.41 mil/uL (4.50-6.00); RDW 16.6 % (10.5-14.5)
--- NOTE | 2019-04-13 16:32 | NUR ---
PT CONFUSED, UNABLE TO CORRECTLY TELL THIS RN THE APPROPRIATE YEAR, IS ABLE TO STATE THAT THE CURRENT MONTH IS APRIL, PT IS ORIENTED TO SELF- ABLE TO STATE APPROPRIATE AGE AND , PT UNAWARE OF WHERE HE IS. RESTING IN BED, FALLS ASLEEP EASILY. ED PROVIDER AWARE OF PT ARRIVAL AND CURRENT VITAL SIGNS. PT IS COOPERATURE. PT ON MONITOR. PIV ESTABLISHED. CALL LIGHT IN REACH. LAB WORK OBTAINED AND SET OF CULTURES- SENT TO LAB.
[2019-04-13 16:37] LABS: CREATININE 2.2 mg/dL (0.7-1.3); POTASSIUM 3.9 mmol/L (3.5-5.1); WBC 34.7 thou/uL (4.0-11.0)
--- NOTE | 2019-04-13 16:38 | NUR ---
RADIOLOGY AT BEDSIDE TO GET CXR
[2019-04-13 16:43] LABS: DIRECT BILIRUBIN 0.3 mg/dL (<0.1-0.3); TOTAL BILIRUBIN 0.9 mg/dL (<0.1-1.0); TOTAL PROTEIN 6.9 g/dL (6.4-8.2)
--- NOTE | 2019-04-13 16:43 | NUR ---
PT FLU SWAB SENT TO LAB FOR ANALYSIS
[2019-04-13 17:15] LABS: BE(vivo) 1.8 mmol/L (-2 to +3); HCO3 25.9 mmol/L (22.0-26.0); PCO2 38.5 mmHg (35.0-45.0); PO2 73.3 mmHg (80.0-100.0); pH 7.445 (7.360-7.450); sO2 95.3 % (92.0-98.0)
[2019-04-13 17:19] LABS: ABSOLUTE NEUTROPHILS 31.9 thou/uL (1.4-8.2)
[2019-04-13 17:20] LABS: ANISOCYTOSIS 1+
[2019-04-13 17:30] LABS: URINE BILIRUBIN NEGATIVE (Negative); URINE BLOOD TRACE (Negative); URINE CLARITY CLEAR; URINE COLOR YELLOW; URINE GLUCOSE-RANDOM* NEGATIVE (Negative); URINE KETONES NEGATIVE (Negative); URINE LEUKOCYTES-REFLEX NEGATIVE (Negative); URINE NITRITE-REFLEX NEGATIVE (Negative); URINE PROTEIN (DIPSTICK) NEGATIVE (Negative); URINE SPECIFIC GRAVITY <= 1.005 (1.005-1.035); URINE UROBILINOGEN 0.2 E.U./dl (0.2-1.0)
[2019-04-13 19:29] VITALS: BP 101/44
[2019-04-13 20:01] VITALS: BP 100/42
[2019-04-13 20:25] VITALS: BP 126/38
[2019-04-13] MEDS ORDERED: TRAMADOL 50 MG50 MG PO (20:46)
[2019-04-13] MEDS ORDERED: ALLOPURINOL 10100 M1 PO (22:58)
[2019-04-13] MEDS ORDERED: IMDUR 60 MG TAB60 M1 PO (23:07)
[2019-04-14] VITALS: BP 156/49
--- NOTE | 2019-04-14 00:44 | NUR ---
ASSUMED CARE OF PT AT 1900HRS. PT IS ALERT BUT ONLY ORIENTED TO SELF AT THIS TIME. FALL PRECAUTION IN PLACE. PT AND FAMILY WAS ORIENTED TO THE UNIT AND ROOM. TEACHING NEEDS TO BE REINFORCED. DPOA (DAUGHTER) SIGNED CONSENTS. PT RECEIVED A BATH THIS SHIFT. O2 VIA NC AT 2L CONTINUED. LIMPHEDEMA AT BUE AND EDEMA AT BLE. ORDERS RECEIVED AND INITIATED. VSS AND NO S/S OF ACUTE DISTRESS. WILL CONTINUE TO MONITOR.
[2019-04-14 05:21] VITALS: BP 106/53
[2019-04-14 05:46] LABS: MCHC 31.6 g/dL (28.0-37.0); MCV 91.7 fL (80.0-100.0); RBC 3.81 mil/uL (4.50-6.00); RDW 16.6 % (10.5-14.5); WBC 27.8 thou/uL (4.0-11.0)
[2019-04-14 05:58] LABS: CALCIUM 8.6 mg/dL (8.5-10.1); CREATININE 2.2 mg/dL (0.7-1.3); POTASSIUM 3.8 mmol/L (3.5-5.1)
[2019-04-14 08:29] VITALS: BP 113/49
--- NOTE | 2019-04-14 10:33 | NUR ---
CALL RECEIVED FROM [facility]. ERIC STATES PATIENT IS CURRENT WITH [facility]. [facility] ALSO REQUESTING CLINICAL UPDATES ON PATIENT. UNIT SW NOTIFIED. CLINICAL INFORMATION PRINTED AND FAXED TO [facility]. FOLLOWING TO ASSIST.
--- NOTE | 2019-04-14 11:34 | NUR ---
ASSUMED CARE AT 0700, SHIFT ASSESSMENT DONE, MEDS GIVEN, VSS. DENIES PAIN, NAUSEA, VOMITING. UP WITH STANDBY, RECEIVING IV LFUIDS. WENT FOR CT SCAN AND US OF UPPER EXTREMITY, AWAITING RESULT. WILL CONTINUE TO ASSESS AND ASSIST WITH ADLs NEEDED.
[2019-04-14 12:15] VITALS: BP 113/49
--- NOTE | 2019-04-14 12:15 | NUR ---
Case opened to follow for dc planning. [employer] Activities Clerk visited with the pt at bedside. He is known to cm from previous admission a couple of weeks ago. He is a&ox4 and lives with his in [place], [place]. He is indep with gait and adl's and has a cane and a rwalker if needed. He was on service with [facility] prior to admission. They can accept him for readmission at dc. They deny any home concerns. The pt's is elderly and he helps care for her too. His dtr Teresa is very involved and supportive. He has home o2 but only uses it at [facility]. Cm role reintroduced. Will follow.
[2019-04-14 15:47] VITALS: BP 119/50
[2019-04-14 19:43] VITALS: BP 111/50
--- NOTE | 2019-04-15 03:28 | NUR ---
ASSUMED CARE OF PT AT 1900HRS. PT IS AOX4 AT THE TIME OF ASSESSMENT BUT SOME CONFUSION AND FORGETFULNESS WAS EVIDENT THE NIGHT PROGRESSED. FALL PRECACAUTION IN PLACE. IV ABX CONTINUED. PT WAS ABLE TO GET COMFORTABLE AND SLEEP PART OF THE SHIFT. 2L O2 VIA NC CONTINUED. VSS AND NO S/S OF ACUTE DISTRESS. WILL CONTINUE TO MONITOR.
--- NOTE | 2019-04-15 07:32 | HC ---
[facility] [place] [address] [place] [address] CONSULTATION Name: DIXIE KESSLER Room #: 460-P ADM IN M.R.#: [id number] Admission: 04/13/19 Attend Phys: Arias Lui Discharge: Date of : 38 Report #: [id number] THIS REPORT FOR: //name// CC: Jaison Lui MD REASON FOR CONSULTATION: History of CLL, hypogammaglobulinemia and altered mental status. HISTORY OF PRESENT ILLNESS: The patient is an 79-year-old patient, very well known with a history of CLL for quite some time. He was at home and his daughter noticed that he was not thinking clearly and was stumbling. He was admitted for altered mental status change. Reportedly, he has improved since admission yesterday. The patient does not recall that he does have a blank area of memory in that area. He does recall that maybe his arms have been more swollen than usual. He does not recall a fever, though he was noted to have one last night during this altered mental status change. He denies any weird headache, any unusual swallowing troubles, any significant new breathing trouble, that he does have chronic drainage and a slight cough, any new diarrhea or constipation, any new bleeding issues. PAST MEDICAL HISTORY: Notable for the history of CLL, on ibrutinib since 2014, also has a history of hypogammaglobulinemia, received subcutaneous weekly infusions at home. Also, has a history of pacemaker in situ and also possible pacemaker wire infection and also possible diskitis, history of carpal tunnel surgery, history of appendectomy, history of gout, history of COPD, emphysema, history of atrial fibrillation. FAMILY HISTORY: Unchanged since last visit. SOCIAL HISTORY: Unchanged. Daughter is not present today. MEDICATIONS: Today in the hospital currently include cefazolin 1 gram IV q.8 hours, allopurinol 100 mg daily, potassium chloride 10 mEq daily, metoprolol 100 mg b.i.d., isosorbide mononitrate 30 mg b.i.d., Imbruvica 420 mg daily, amiodarone 100 mg daily, heparin 5000 units b.i.d. prophylaxis, guaifenesin 1200 mg p.o. ER b.i.d., levothyroxine 25 mcg daily, pantoprazole 40 mg daily p.o., budesonide respiratory therapy b.i.d., gabapentin 100 mg t.i.d., Tylenol p.r.n. and MiraLax on a p.r.n. basis. PHYSICAL EXAMINATION: VITAL SIGNS: The patient's weight is 220 pounds, which is about 99.8 kilograms. His height is 5 feet 4 inches, which is 162.6 cm. Blood pressure recently 113/49, respirations 18, pulse 61. The patient currently [place] [address] CONSULTATION Name: DIXIE KESSLER Room #: 460-P [facility] IN M.R.#: [id number] Admission: 04/13/19 Attend Phys: Arias Lui Discharge: Date of : 38 Report #: [id number] at 98.2, though last evening he was 100.4. MOOD: The patient is alert and pleasant, sitting on the edge of his bed, eating breakfast. NEUROLOGIC: Speech and thought pattern appear to be normal. He is moving all extremities. LYMPHATICS: No enlarged lymph nodes in the supraclavicular or cervical region. EXTREMITIES: Very notable for slight increased edema, more than usual, especially at the upper extremities. He also has some redness on his left hand forearm that is more than usual for him. He had noticed this maybe 3 days ago. ABDOMEN: Obese. No definite organomegaly, but hard to tell. SKIN: Has signs of ecchymosis and chronic stasis or lymphedema-type changes. ASSESSMENT AND PLAN: 1. History of chronic lymphocytic leukemia, continues ibrutinib. Counts probably elevated related to infection and steroids. Continue ibrutinib. 2. Altered mental status changes with fever and left arm redness and swelling. I suspect cellulitis and agree with antibiotics. Note that a CT head was unremarkable. The patient probably does not need an MRI or would not do MRI with pacemaker in situ. 3. Bilateral arm swelling. Agree with ultrasound and talk with hands' doctor. Also could consider CT to look for central obstruction from lymphoma. 4. Hypogammaglobulinemia. Continues IVIG subcutaneous at home. 5. Chronic antibiotics for diskitis and osteomyelitis. Continues per Infectious Disease. 6. History of high-grade noninvasive bladder tumor, completed intravesical BCG with Dr. Leo Carrillo several months ago. 7. Renal mass, has been followed for stability. 8. Atrial fibrillation. Continue amiodarone and other meds for rate control. 9. Chronic kidney disease stage 3. Adjust medications as needed and monitor serially. 10. Chronic obstructive pulmonary disease, continue aerosol treatments as needed. 11. Pacemaker in situ, reportedly functioning well. 12. Esophageal reflux. Continue his proton pump inhibitor. 13. Gout. The patient will continue on allopurinol. We will follow with you. <ELECTRONICALLY SIGNED> By: Bang Ruiz MD 04/15/19 0732 [id number] Bang Ruiz MD /sharyn
[2019-04-15 07:42] LABS: HEMATOCRIT 34.1 % (42.0-52.0); HEMOGLOBIN 10.9 gm/dL (14.0-18.0); MCH 29.5 pg (26.0-34.0); MCHC 31.9 g/dL (28.0-37.0); MCV 92.6 fL (80.0-100.0); RBC 3.68 mil/uL (4.50-6.00); WBC 16.1 thou/uL (4.0-11.0)
[2019-04-15 08:01] LABS: CALCIUM 8.7 mg/dL (8.5-10.1); CREATININE 2.1 mg/dL (0.7-1.3); POTASSIUM 4.2 mmol/L (3.5-5.1)
[2019-04-15 08:06] VITALS: BP 121/50
--- NOTE | 2019-04-15 15:35 | HC ---
[facility] [place] [place] [address] CONSULTATION Name: DIXIE KESSLER Room #: 460-P ADM IN M.R.#: [id number] Admission: 04/13/19 Attend Phys: Arias Lui Discharge: Date of : 38 Report #: [id number] THIS REPORT FOR: //name// CC: Pawan Lui DATE OF SERVICE: 04/14/2019 INFECTIOUS DISEASE CONSULTATION REASON FOR CONSULTATION: I was asked to evaluate concerning sepsis. HISTORY OF PRESENT ILLNESS: The patient is an 79-year-old underlying CLL, hypogammaglobulinemia, who has been hospitalized frequently within the last several months, mostly due to suspected gout. He was worked up for possible left knee prosthetic joint infection on the left. Studies however, have been inconclusive. His pain in his knee has stabilized. Was hospitalized last week with gouty flare suspected. Returned again on 04/12/2019 to the Emergency Room with increased pain in his arms, mostly around the wrists, left greater than right. Evaluation in the Emergency Room did note marked peripheral edema and tenderness mostly on the left. Ultrasound showed no evidence of DVT. Laboratory studies remained stable for him with a white cell count 13,000 and creatinine 2.2. He was discharged to follow up with me yesterday. Yesterday, however, while at home, became more confused and dyspneic. Brought into the Emergency Room, found to have right lung pulmonary infiltrate. He had low-grade fever. White count was up to 30,000. No specific gouty flare noted. His joints he states are feeling better today. Denies any chest pain, cough or sputum production. No nausea, vomiting or diarrhea. He remains hard of hearing as before. REVIEW OF SYSTEMS: A 10-point review was negative other than what has been described above. ALLERGIES: HYDROCODONE. MEDICATIONS: As noted on his MAR. The patient does remain on immunosuppression for his CLL as outlined by Oncology service. He remains on cephalexin as suppression for his diskitis and vertebral osteomyelitis in the setting of permanent pacemaker that all occurred around the same time. His heart failure has been unchanged. He has had significant bilateral upper and lower extremity edema. The patient is followed by Oncology and Cardiovascular Medicine. REVIEW OF SYSTEMS: Full 10-point review was negative other than what has been [facility] [address] [place] [address] CONSULTATION Name: DIXIE KESSLER Room #: 460-P [facility] IN M.R.#: [id number] Admission: 04/13/19 Attend Phys: Arias Lui Discharge: Date of : 38 Report #: [id number] described above. PAST MEDICAL HISTORY: Unchanged from his previous consultation. FAMILY HISTORY: Unchanged from his previous consultation. SOCIAL HISTORY: Unchanged from his previous consultation. PHYSICAL EXAMINATION: VITAL SIGNS: He is afebrile and hemodynamically stable. Maximum temperature was 100.4 earlier yesterday. EXTREMITIES: He has 4+ edema in his left arm, 3+ in the right. 2+ edema in the lower extremities. No definite skin breakdown or cellulitis, venous stasis dermatitis changes in the legs. No palpable adenopathy. EYES: Without scleral icterus. MOUTH: Without mucositis. NECK: Supple. LUNGS: Clear anteriorly with decreased breath sounds posteriorly. No consolidation. HEART: Regular without appreciable murmur, gallop or rub. ABDOMEN: Obese, soft, nontender with no appreciable mass. Does have a reducible ventral hernia, which is nontender. GENITAL AND RECTAL: Not performed. BACK: Nontender. No CVA tenderness. EXTREMITIES: With mild tenderness in his left wrist with reasonable range of motion. Right wrist was unremarkable. No tenderness in his left knee with reasonable range of motion. Joints in his feet were nontender. NEUROLOGIC: Cranial nerves intact. Mood was normal. Strength in his upper and lower extremities was symmetric. Sensation upper and lower extremities to touch was normal. LABORATORY STUDIES: Blood cultures are negative today. Sodium 137, potassium 3.8, bicarbonate 30, creatinine 2.2. Hemoglobin 11, WBC 27.8, platelet count 185,000. CT of the head was negative. Urinalysis unremarkable. Influenza antigen negative. Lactate 1.3. CT shows right upper and lower lobe pulmonary infiltrate. IMPRESSION: 1. An 79-year-old with change in mental status associated with right lung infiltrate, community-acquired pneumonia. 2. Leukocytosis and altered mental status related to the above. 3. CLL, hypogammaglobulinemia, longstanding on ibrutinib. 4. Left total knee arthroplasty, pain improved. Infectious workup so far negative for prosthetic joint infection. 5. Chronic lymphedema upper and lower extremities, associated congestive heart failure. [facility] [address] [place] [address] CONSULTATION Name: IDXIE KESSLER Room #: 460-P ADM IN M.R.#: [id number] Admission: 04/13/19 Attend Phys: Arias Lui Discharge: Date of : 38 Report #: [id number] 6. Chronic kidney disease. 7. Recurrent gouty attacks. 8. High-grade invasive bladder tumor status post intravesical BCG. So far, I do not think we are dealing with dissemination of such. 9. 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 RECOMMENDATIONS: We will continue IV antibiotic therapy for pneumonia and continue workup for such. Follow chest x-ray. Control edema. Check IgG level. <ELECTRONICALLY SIGNED> By: Jaison Lee MD 04/15/19 1535 [id number] Jaison Lee MD /nt
--- NOTE | 2019-04-15 19:08 | NUR ---
Assumed pt care this amm, vs stable and pt stayed on his recliner for most of the day. Pt was able to work with PT and was able to walk the halls with the walker and gait belt. Pt is a bit confused compared to this last admission. Fall precautions in place, hourly rounds done. Medication and diet is well tolerated, home meds are in the IV bin and strictly given every day since these are this chemo meds. 4+ edma noted on the left upper ext and 1+ on the lower ext., bliateral compression stocking in place. POC followed no signs or verbalizations of distress have been noted. Dr. Jesus raymundo for lympedema clinic evaluation.
[2019-04-15 20:00] VITALS: BP 117/38
[2019-04-16 03:45] VITALS: BP 103/68
--- NOTE | 2019-04-16 05:49 | NUR ---
Pt. rested quietly during the night when checked on during frequent rounds. He offers no c/o pain or discomfort. Bilateral arms lymphedema. Bed alarm is on.
[2019-04-16 07:19] VITALS: BP 139/66
[2019-04-16 14:44] VITALS: BP 120/54
[2019-04-16 19:56] VITALS: BP 115/50
--- NOTE | 2019-04-16 20:00 | NUR ---
Assessment completed.Pt in bed resting with intermittent confusion but easily redirected.Assisted with tray setup at all meals.Good appetite.Pt has slight elevated temp but on scheduled iv antibiotic.Received call from pt's dtr,updates given.Bed alarm in use for pt safety.Will continue to monitor.
[2019-04-17 04:44] VITALS: BP 127/59
[2019-04-17 05:31] LABS: HEMATOCRIT 34.8 % (42.0-52.0); MCH 29.3 pg (26.0-34.0); MCHC 31.5 g/dL (28.0-37.0); RBC 3.74 mil/uL (4.50-6.00); RDW 16.3 % (10.5-14.5); WBC 12.9 thou/uL (4.0-11.0)
--- NOTE | 2019-04-17 06:00 | NUR ---
Pt. rested quietly at short intervals during the night when checked on during frequent rounds. He requested a cough drop and new order for cepacol received. Pt. does have non-productive cough and head of the bed is elevated. Up to the bedside comode with gait belt and assist of 2. Pt. alert and confused to time this am. Pt. was reoriented. He offers no c/o pain. Bed alarm is on.
[2019-04-17 08:00] VITALS: BP 136/72
[2019-04-17 15:00] VITALS: BP 154/69
--- NOTE | 2019-04-17 16:14 | NUR ---
Assumed pt care this am, pt is alert and oriented bout would have bouts of confusion which is not his norm as per his last admission. Edema on the LUE is at +4 while the RUE is 2+. LE has 1+ edema and both have compression stockings. Medication and diet is well tolerated, home meds (chemo ) currently on hold. For lymphedema clinical evaluation tomorrow, Christina Juarez [phone].
[2019-04-17 19:56] VITALS: BP 100/56
--- NOTE | 2019-04-18 03:05 | NUR ---
ASSUMED CAREOF PT AT 1900HRS. PT IS AOX4 WITH SOME CONFUSION. FALL PRECAUTION IN PLACE. ABX TREATMENT CONTINUED. 2L O2 VIA NC CONTINUED. PT WAS ABLE TO GET COMFORTABLE AND SLEEP PART OF THE SHIFT. VSS AND NO S/S OF ACUTE DISTRESS. WILL CONTINUE TO MONITOR.
[2019-04-18 06:58] LABS: HEMATOCRIT 31.6 % (42.0-52.0); MCH 29.3 pg (26.0-34.0); MCHC 31.8 g/dL (28.0-37.0); MCV 92.3 fL (80.0-100.0); RBC 3.42 mil/uL (4.50-6.00); RDW 16.3 % (10.5-14.5); WBC 8.6 thou/uL (4.0-11.0)
[2019-04-18 07:25] LABS: ALBUMIN 2.1 g/dL (3.4-5.0); CALCIUM 8.4 mg/dL (8.5-10.1); CREATININE 1.9 mg/dL (0.7-1.3); PHOSPHORUS 3.5 mg/dL (2.5-4.9); POTASSIUM 3.9 mmol/L (3.5-5.1)
[2019-04-18 09:39] VITALS: BP 138/62
--- NOTE | 2019-04-18 15:28 | NUR ---
CARE TEAM INDICATED THAT THEY WERE RECOMMENDING POST ACUTE CARE STAY UPON DC. 5N INDICATED THAT THEY ARE ABLE TO ACCEPT PT UPON DC. CM CONTACTED PHYSICAIN REGARDING TIME FRAME AND HADN'T HEARD BACK. CM TO FOLLOW INDICATED WITH DC PLANNING.
--- NOTE | 2019-04-18 19:27 | NUR ---
Asssumed pt care this am, pt has bouts of confusion. Pt wanted to walk the halls this afternoon. Lymphedema still present on the upper extrimities and profound on the left arm. Myralax given this am for constipation, pt was ble to have a big bm. NO signs or verbalizations of distress have been noted. POC followed , endorsed to the night nurse and to follow through with the lymphedema clinic.
[2019-04-18 19:57] VITALS: BP 129/56
[2019-04-19 03:56] VITALS: BP 128/56
--- NOTE | 2019-04-19 04:30 | NUR ---
ASSUMED CARE OF PT AT 1900HRS. PT IS ALERT BUT ONLY ORIENTED TO PERSON AND SITUATION. FALL PRECATION IN PLACE. ABX TREATMENT CONTINUED. O2 AT 2L CONTINUED. VSS AND NO S/S OF ACUTE DISTRESS. PT SPENT MOST OF THE NIGHT ON RECLINER. PT WAS ABLE TO GET COMFORTABLE AND SLEEP PART OF THE SHIFT. WILL CONTINUE TO MONITOR.
[2019-04-19 07:34] VITALS: BP 126/60
[2019-04-19] MEDS ORDERED: HEPARIN SO5000 UNIT/ SUBQ (09:39)
[2019-04-19] MEDS ORDERED: AZITHROMYCIN 2250 MG PO (09:39)
[2019-04-19] MEDS ORDERED: PREDNISONE 20 M20 M1 PO (09:43)
[2019-04-19] MEDS ORDERED: ZOSYN 3.3753.375 GM IV (09:44)
--- NOTE | 2019-04-19 16:08 | NUR ---
CARE TEAM INDICATED THAT PT IS MEDICALLY STABLE TO GO TO [facility] ACUTE INPATIENT REHAB THIS DAY. CM NOTIFIED PT'S DTR OWEN AND SHE IS AWARE AND AGREEABLE. REPORT TO BE CALLED TO . CM TO FOLLOW INDICATED WITH DC PLANNING.
[2019-04-19 16:23] VITALS: BP 124/60
--- NOTE | 2019-04-19 20:03 | NUR ---
Received awake on bed. Due medications given as prescribed, able to swallow meds w/o difficulty. A+Ox2-3. On O2 at 2lpm via nasal cannula. With SL at R AC- on IV Zosyn. Assisted in ADLs. Tolerating meals; no nausea, no vomiting and no abdominal pain noted. Able to use walker to go to bathroom with standby assist and gait belt. Vital signs stable. Able to sit out on the chair today. With bilateral upper and lower extremities swelling noted, not weeping. Pt to be seen by lymphedema nurse today. Pt seen by oncologist, asked re: Imbruvica not given today, checked EMAR, nurse looking after the pt yesterday is not here, med was on hold- to verify with hospitalist if ok to resume- Dr Lui asked and said pt can have medication today- given as prescribed. Lymphedema nurse seen pt and wrapped pt's arm- as per Dr Lui to continue lymphedema care at [facility] staff informed during report. Pt visited by his daughter and , documents signed. Empty imbruvica bottle shown to pt's daughter prior to disposal, informed her that Dr ordered for medication to be resumed and it only had 3 capsules left, pt taking 3 capsules daily. Report given to staff Jeb of [facility], informed him that pt will be on weekly weights, daughter to bring another bottle of Imbruvica since it is non formulary. Brought up to [facility] via wheelchair by volunteer transport with his personal belongings, pt's daughter and present during transfer.
[2019-04-20 21:05] LABS: ADENOVIRUS Negative (Negative); INFLUENZA A Negative (Negative); INFLUENZA B Negative (Negative); METAPNEUMOVIRUS Negative (Negative); PARAINFLUENZA 1 Negative (Negative); PARAINFLUENZA 2 Negative (Negative); PARAINFLUENZA 3 Negative (Negative); RHINOVIRUS Negative (Negative); RSV A Negative (Negative); RSV B Negative (Negative)
--- NOTE | 2019-04-22 11:56 | HC ---
[facility] [place] [address] CONSULTATION Name: DIXIE KESSLER V Room #: 460-P [facility] IN M.R.#: [id number] Admission: 04/13/19 Attend Phys: Arias Lui Discharge: 04/19/19 Date of : 38 Report #: [id number] THIS REPORT FOR: //name// CC: Pawan Lui DATE OF SERVICE: 04/18/2019 HISTORY OF PRESENT ILLNESS: The patient is an 79-year-old white male who was admitted with acute mental status changes, problems ambulating. He had decreased O2 sat, elevated heart rate, problems forming words. He was diagnosed with toxic metabolic encephalopathy and a question if there was hypoxic encephalopathy component as well. He was diagnosed with left hand cellulitis. He does have chronic bilateral upper extremity lymphedema. He also was noted to have a right lung infiltrate consistent with community-acquired pneumonia. He had left total knee arthroplasty pain, which has improved. We are seeing him in rehabilitation medicine consultation. PAST MEDICAL HISTORY: Also includes CLL, back surgery including one back surgery in 2015 and apparently another one in 1976. He has had bilateral total knee arthroplasties, carpal tunnel in both hands, chronic pain syndrome, atrial fibrillation, gout, pacemaker placement. He has a history of MSSA vertebral osteomyelitis, polymyalgia rheumatica, chronic kidney disease, and neuropathy. MEDICATIONS: Please see the full medication listing. ALLERGIES: HYDROCODONE. SOCIAL HISTORY: Lives with his in a house, only used O2 at night. Used a walker versus cane, 3 steps in. HABITS: Former tobacco abuse, quit greater than a year ago. No history of alcohol abuse. FAMILY HISTORY: Sister had cancer. REVIEW OF SYSTEMS: He is currently on oxygen at home. No current chest pain, no shortness of breath except with increased activity. No abdominal discomfort. Did not offer any complaints of headache. Does have chronic pain syndrome. He has chronic bilateral upper extremity swelling and lymphedema. He has had history of recurrent gout. He had the prior back surgery and back problems. No current focal extremity pain complaints. PHYSICAL EXAMINATION: GENERAL: An 79-year-old white male in no obvious distress. VITAL SIGNS: Last recorded temperature 98.2, pulse 85, respirations 16, blood [address] [address] CONSULTATION Name: DIXIE KESSLER V Room #: 460-P [facility] IN M.R.#: [id number] Admission: 04/13/19 Attend Phys: Arias Lui Discharge: 04/19/19 Date of : 38 Report #: [id number] pressure 138/62. The patient is alert. He does have a definite latency to his responses, will follow basic 1 step commands. HEENT: Facies appeared symmetric. He is on nasal prong O2, currently on 2 liters. EXTREMITIES: Upper extremities reveals significant chronic lymphedema of left upper extremity more than right upper extremity. He has definite decreased range of motion with this lymphedema. Strength is probably a grade 3+/5 in his lower extremities, bilateral knee incisions are noted. There is no focal calf swelling. Functional range of motion with strength probably a grade 3+ to 4-/5. DTRs are trace to 1. He is min assist with sit to stand. Gait short distance min assist with a front-wheeled walker. ASSESSMENT: An 79-year-old white male with the following problem list: 1. Toxic metabolic encephalopathy with question of hypoxic encephalopathy. 2. Right lung infiltrate consistent with community-acquired pneumonia. 3. Left hand cellulitis. 4. Chronic lymphedema, bilateral upper and lower extremities. 5. History of chronic lymphocytic leukemia. 6. History of congestive heart failure. 7. Chronic kidney disease. 8. High grade noninvasive bladder tumor, status post intravesical BCG. 9. Permanent pacemaker. 10. History of MSSA vertebral osteomyelitis on chronic suppression antibiotics. 11. Chronic pain syndrome. 12. Prior history of lumbar surgery x 2. 13. Chronic obstructive pulmonary disease, he was on O2 at night only, premorbidly. RECOMMENDATIONS: The patient would be a candidate for a short acute in-hospital inpatient rehabilitation stay. OT orders are added. We will be glad to follow along with you regarding his rehab therapy needs. <ELECTRONICALLY SIGNED> By: Luciano Cool MD 04/22/19 1156 [id number] 0145 Luciano Cool MD /nt
== END 2019-04-19 17:52 | DRG 871 ==
LOC: ER 16:02 → EROBS 19:09 → 4W 19:09 → ENTRNSPT 04-19 17:41 → 4W 04-19 17:52
PROVIDERS: Emergency Medicine; Nurse Practitioner Family; Specialist; ADMIT Hospitalist
DX: A41.9 Sepsis, unspecified organism (principal); J96.21 Acute and chronic respiratory failure with hypoxia; G92 Toxic encephalopathy; J18.9 Pneumonia, unspecified organism; L03.114 Cellulitis of left upper limb; I50.32 Chronic diastolic (congestive) heart failure; C91.10 Chronic lymphocytic leukemia of B-cell type not having achieved remission; M46.20 Osteomyelitis of vertebra, site unspecified; N18.4 Chronic kidney disease, stage 4 (severe); G89.4 Chronic pain syndrome; Z96.651 Presence of right artificial knee joint; G62.9 Polyneuropathy, unspecified; B95.61 Methicillin susceptible Staphylococcus aureus infection as the cause of diseases classified elsewhere; K59.00 Constipation, unspecified; M46.40 Discitis, unspecified, site unspecified; I89.0 Lymphedema, not elsewhere classified; K21.9 Gastro-esophageal reflux disease without esophagitis; M35.3 Polymyalgia rheumatica; J43.9 Emphysema, unspecified; Z96.652 Presence of left artificial knee joint; M19.90 Unspecified osteoarthritis, unspecified site; I48.91 Unspecified atrial fibrillation; M10.9 Gout, unspecified; Z90.49 Acquired absence of other specified parts of digestive tract; Z95.0 Presence of cardiac pacemaker; Z88.8 Allergy status to other drugs, medicaments and biological substances; Z80.3 Family history of malignant neoplasm of breast; Z87.891 Personal history of nicotine dependence
CPT/HCPCS: 10040; 10045

== ENCOUNTER 2019-04-19 12:19 | Inpatient (IN) | payer OTHER, BC ==
[~2019-04-19] VITALS: Ht 162.6 cm; Wt 106.5 kg
--- NOTE | ~2019-04-19 | PLAN ---
[facility] [place] [address] REHAB UNIT PLAN OF CARE Name: DIXIE KESSLER V Room #: 503-P ADM IN M.R.#: [id number] Admission: 04/19/19 Attend Phys: Luciano Cool MD Discharge: Date of : 38 Report #: [id number] THIS REPORT FOR: //name// CC: Luciano Hicks DATE OF SERVICE: 04/22/2019 PROGRESS NOTE/OVERALL PLAN OF CARE SUBJECTIVE: The patient is seen back today in followup. He is in no distress. Last recorded temperature 36.3, pulse 60, respirations 20, blood pressure 142/70. He is alert. He continues with the significant lymphedema of bilateral upper extremities, left upper extremity appears less tender and less inflamed. He has been working in therapies with transfers, improved to a contact guard assistance. He is now progressing with ambulation up to 100 feet with the front-wheeled walker, contact guard assistance. Working on balance issues, postural issues, started to work on steps. Monitoring his O2 sat. He is now off oxygen. Lower body dressing is min assist. Cognition is moderate assistance. Memory moderate to severe. ASSESSMENT: 1. Acute metabolic encephalopathy. 2. Healthcare-associated pneumonia with acute on chronic respiratory failure. 3. Left hand cellulitis. 4. Chronic bilateral upper extremity lymphedema. 5. Chronic obstructive pulmonary disease. 6. Atrial fibrillation. 7. Chronic lymphocytic leukemia. 8. Chronic kidney disease stage 3. 9. Chronic pain syndrome. PLAN: The overall plan of care is based on the preadmission screen, post-admission physician evaluation and information garnered from therapy assessments. 1. Estimated length of stay is probably at least the next 7-10 days. 2. Medical prognosis is reasonably good. 3. Anticipated interventions includes the interdisciplinary acute inpatient rehabilitation program. He also has the multiple physician consultants that are following with his multiple medical comorbidities. 4. Anticipated functional outcomes would be for the patient to become modified independent at least at a cane versus walker level and to improve as far as cognition, so that he can return back to the home setting. 5. Discharge destination would be back home with his . 6. Expected therapy by discipline includes PT, OT and speech 1 [place] [address] REHAB UNIT PLAN OF CARE Name: DIXIE KESSLER V Room #: 503-P [facility] IN .R.#: [id number] Admission: 04/19/19 Attend Phys: Luciano Cool MD Discharge: Date of : 38 Report #: [id number] each five days a week throughout the duration of the acute inpatient rehabilitation stay. By: 0842 [id number] Luciano Cool MD /nt
--- NOTE | ~2019-04-19 | H ---
[facility] [place] [address] HISTORY AND PHYSICAL Name: DIXIE KESSLER Room #: 503-P ADM IN M.R.#: [id number] Admission: 04/19/19 Attend Phys: Luciano Cool MD Discharge: Date of : 38 Report #: [id number] THIS REPORT FOR: //name// CC: Luciano Hicks DATE OF SERVICE: 04/19/2019 HISTORY AND PHYSICAL/POST-ADMISSION PHYSICIAN EVALUATION HISTORY OF PRESENT ILLNESS: The patient has been admitted for acute in-hospital inpatient rehabilitation. Please see the full history and physical. I agree with the assessment, examination findings, plan as noted. The patient was originally admitted to the acute hospital with acute on chronic hypoxic respiratory failure, pneumonia, and left hand cellulitis and was noted to have toxic metabolic encephalopathy. He was placed on IV antibiotics, nebulizers, steroids, O2. He does have chronic lymphedema of the upper extremities more than the lower extremities and has been seen by the lymphedema nurse. He has a prior history of CLL. He has now been admitted for acute in-hospital inpatient rehabilitation. PAST MEDICAL HISTORY: See the history and physical. ALLERGIES: See the history and physical. HABITS: See the history and physical. FAMILY HISTORY: See the history and physical. SOCIAL HISTORY: See the history and physical. MEDICATIONS: Please see the full medication listing. REVIEW OF SYSTEMS: No current complaints of chest pain, shortness of breath or abdominal discomfort. PHYSICAL EXAMINATION: GENERAL: He is a pleasant 79-year-old white male in no obvious distress. VITAL SIGNS: Temperature 97.5, pulse 68, respirations 20, blood pressure 126/72. NEUROLOGIC: He is alert. There is a delay in his processing, but he does follow basic 1 step commands. HEAD, EYES, EARS, NOSE, AND THROAT: Facies appeared symmetric. CHEST: Sounded clear, some mild decreased breath sounds diffusely. CARDIOVASCULAR: Regular rate and rhythm. ABDOMEN: Bowel sounds positive, nontender. He is somewhat overweight. [address] [address] HISTORY AND PHYSICAL Name: DIXIE KESSLER Room #: 503-P [facility] IN M.R.#: [id number] Admission: 04/19/19 Attend Phys: Luciano Cool MD Discharge: Date of : 38 Report #: [id number] EXTREMITIES: Upper extremities, he has significant lymphedema, especially of the left upper extremity more than the right upper extremity. The left arm is wrapped. He does have decreased range of motion due to the lymphedema. Supervisor Order Takers strength is equal. Lower extremity strength is probably a grade 3+ to 4-/5. He is min assist with basic sit to stand. ASSESSMENT: 1. Acute metabolic encephalopathy. 2. Healthcare-associated pneumonia with acute on chronic respiratory failure. 3. Left hand cellulitis. 4. Chronic bilateral upper extremity lymphedema. 5. Chronic obstructive pulmonary disease. 6. Atrial fibrillation. 7. Chronic lymphocytic leukemia. 8. Chronic kidney disease stage 3. 9. Chronic pain syndrome. PLAN: The patient is admitted for acute in-hospital inpatient rehabilitation. From a postadmission physician evaluation perspective, there are no relevant changes since the preadmission screening. Please see the above review of prior and current medical and functional conditions and comorbidities. Please see the patient's previous and current functional status. As far as risk of complications, the patient has multiple medical comorbidities as noted above. Initial plan of care involves the interdisciplinary acute inpatient rehabilitation program. Measurable functional goals would be for the patient to improve as far as strength, endurance, balance, ADL and mobility independence and cognition, so that he can return back to the home setting. Prognosis is reasonably good with estimated length of stay probably at least 7-14 days. Potential barriers would include the patient's multiple medical comorbidities and decreased functional status. The patient meets diagnostic criteria for an acute in-hospital inpatient rehabilitation stay. He meets medical necessity criteria and we will have the clothing consultant physicians continue to follow. He does have the tolerance for therapies and has appropriate discharge goals back to the home setting. By: 0825 [id number] Luciano Cool MD /[facility]
[~2019-04-19 12:19] MED LIST changes: +ALLOPURINOL 10100 M1 PO; +AZITHROMYCIN 2250 MG PO; +HEPARIN SO5000 UNIT/ SUBQ; +IMDUR 60 MG TAB60 M1 PO; +TRAMADOL 50 MG50 MG PO; +ZOSYN 3.3753.375 GM IV
[2019-04-19 19:15] VITALS: BP 114/65
--- NOTE | 2019-04-19 19:34 | NUR ---
ASSUMED CARE AT 1800, SHIFT ASSESSMENT DONE, ADMISSION DONE, VSS. DENIES PAIN, NAUSEA, VOMITING. UP WITH STANDBY ASSIST. WILL CONTINUE TO ASSIST WITH ADLs NEEDED.
--- NOTE | 2019-04-19 20:16 | NUR ---
ASSUMED CARE OF PT AT
[2019-04-19 22:06] VITALS: BP 126/72
--- NOTE | 2019-04-20 00:42 | NUR ---
PT ASSESSMENT COMPLETED AND VSS. MEDS GIVEN ORDERED AND WELL TOLERATED. FALL PRECAUTIONS IN PLACE. LEFT ARM REMAINS WRAPPED FOR LYMPH EDEMA. ASHWINI HOSE ON BARRETT LEGS. PT DID NOT WANT THEM REMOVED. ELEVATED ALL EXTREMITIES ON PILLOWS. SLEEPING WELL. WILL CONTINUE TO MONITOR FREQUENTLY.
[2019-04-20 06:11] LABS: HEMATOCRIT 33.1 % (42.0-52.0); HEMOGLOBIN 10.3 gm/dL (14.0-18.0); MCHC 31.3 g/dL (28.0-37.0); MCV 92.7 fL (80.0-100.0); RBC 3.57 mil/uL (4.50-6.00); RDW 16.6 % (10.5-14.5); WBC 12.5 thou/uL (4.0-11.0)
[2019-04-20 06:24] LABS: CALCIUM 8.6 mg/dL (8.5-10.1); POTASSIUM 4.8 mmol/L (3.5-5.1)
[2019-04-20 07:18] VITALS: BP 137/68
--- NOTE | 2019-04-20 09:40 | NUR ---
chart review, pt new to acute rehab yesterday evening. britt a & o x 3, and able to make his needs know. intro to cm, transition of care, and team meetings. pt reported " live with his , has 3 steps into the house to enter. has cane, fww, shower chair. oxygen use at bedtime and as needed. have a walking shower tub that is on back deck that needs to be installed if can get someone to do that. i help care for my , i cook, do laundry and clean. manage own medication and drive. uses walker or wheel chair. hh in past"/britt. noted in chart pt has [facility] in past. will cont following as needed for dc needs.
--- NOTE | 2019-04-20 10:15 | NUR ---
ASSUMED CARE AT 0700. PATIENT IS ALERT AND ORIENTED TO PERSON. PATIENT BECCA'S. PATIENT HAS ON ASHWINI HOSE. PATIENT HAS LYMPH EDEMA WRAP TO HIS LEFT ARM. PATIENT IS UP TO THE BATHROOM WITH GAIT BELT, WALKER, AND ASSIST OF 1 STAFF. UP IN THE CHAIR FOR MEALS. FALL AND SAFETY PROTOTCOLS IN PLACE. DENIES PAIN AT THIS TIME. PATIENT CONTINUES TO PROGRESS SLOWLY TOWARDS D/C GOALS. PATIENT HAS S.L. IN HIS RIGHT AC. PATIENT HAS CELLULITIS IN HIS L.E. HIS RIGHT ARM IS EDEMATOUS. VOIDING SERG COLORED URINE. WILL CONTINUE TO MONITER.
--- NOTE | 2019-04-20 12:12 | NUR ---
Nutrition: Pt admitted with toxic metabolic encephalopathy, CAP to rehab unit. Hx CKD. Consult received per rehab admission orders. Pt eating well 75-100% of meals on heart healthy diet. L arm cellulitis/lymphedema noted. Ensure max ordered BID, pt drinking 100%. Discussed increased protein needs/sources with pt. Stable weights. BMI 40.3 indicating extreme class 3 obesity. Pt requests regular diet. Agree with ordered diet however will allow tea/coffee. Discussed with nsg. Low nutrition risk.
--- NOTE | 2019-04-20 16:48 | NUR ---
Patient participated in community reintegration on 04/20/19 with OT. Refer to documentation by OT.
[2019-04-20 21:01] VITALS: BP 133/63
--- NOTE | 2019-04-21 02:49 | NUR ---
SLEEPING IN CHAIR, UP TO BATHROOM WITH STANDBY ASSIST, GAIT BELT, AND CANE. RIGHT ELBOW FOREARM SALINE LOCK FOR INTERMITTENT IV ANTIBIOTIC. PATIENT IS PLEASANT AND ON O2.
[2019-04-21 09:00] VITALS: BP 140/71
--- NOTE | 2019-04-21 12:56 | NUR ---
ASSUMED CARE AT 0700. PATIENT IS ALERT AND ORIENTED X4. PATIENT HUDSON'S. PATIENT HAS LYMPH EDEMA WRAP ON LEFT ARM. PATIENT HAS S.L. IN HIS RIGHT AC. LUNGS ARE CLEAR AND DEMINISHED. ABD IS SOFT WITH BSX4. PATIENT HAS EDEMA IN HIS LOWER EXTREMITIES. LYMPH EDEMA NURSE TO SEE PATIENT TODAY. FALL AND SAFETY PROTOCOLS IN PLACE. DENIES ANY PAIN. 02 SAT 95% ON RA. 02 OFF. PATIENT CONTINUES TO PROGESS TOWARDS D/C GOALS. WILL CONTINUE TO MONITER.
[2019-04-21 19:27] VITALS: BP 130/65
--- NOTE | 2019-04-21 22:41 | NUR ---
PT ASSESSMENT COMPLETED AND VSS. MEDS GIVEN ORDERED AND WELL TOLERATED. FALL PRECAUTIONS IN PLACE. UP TO THE BATHROOM WITH ASST/GAIT/CANE. ALERT AND FORGETFUL AT TIMES. VOIDING LARGE AMOUNT OF YELLOW URINE. WILL CONTINUE TO MONITOR FREQUENTLY.
[2019-04-22 05:39] LABS: HEMATOCRIT 37.3 % (42.0-52.0); HEMOGLOBIN 11.7 gm/dL (14.0-18.0); MCH 28.9 pg (26.0-34.0); MCHC 31.4 g/dL (28.0-37.0); MCV 92.1 fL (80.0-100.0); PLATELET COUNT 241 thou/uL (150-400); RBC 4.05 mil/uL (4.50-6.00); RDW 16.5 % (10.5-14.5); WBC 11.1 thou/uL (4.0-11.0)
[2019-04-22 06:00] LABS: CALCIUM 8.4 mg/dL (8.5-10.1); CREATININE 2.1 mg/dL (0.7-1.3); MAGNESIUM 2.6 mg/dL (1.8-2.4); POTASSIUM 4.3 mmol/L (3.5-5.1)
--- NOTE | 2019-04-22 07:07 | HC ---
[facility] [place] [address] CONSULTATION Name: DIXIE KESSLER Room #: 503-P ADM IN M.R.#: [id number] Admission: 04/19/19 Attend Phys: Luciano Cool MD Discharge: Date of : 38 Report #: [id number] THIS REPORT FOR: //name// CC: Jaison Hicks DO REASON FOR CONSULTATION: Followup of CLL and hypogammaglobulinemia. HISTORY OF PRESENT ILLNESS: The patient is a very pleasant 79-year-old gentleman, who I have known for a number of years, who has been followed by our group even longer, who has a history of CLL, who has been on Imbruvica for some period of time and also has hypogammaglobulinemia. The patient was recently admitted after doing some stumbling at home and had mental status changes. On his recent admit in acute care, he was thought to have possible pneumonia and also possible cellulitis and lymphedema that is worse in his left arm. He received antibiotics and had improvement and was thought appropriate for rehabilitation and is transferred up to rehab and we are reconsulted for continuing care. The patient then states that he walked very well yesterday with the rehabilitation services. He is up in a chair, getting ready to eat breakfast. Denies any fevers, chills, chest pain, nausea, abdominal pain. He thinks his left arm and other extremities are maybe less swollen. Note that he did do a wrap yesterday on his arm, which seemed to help. 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 He does have chronic bruising. PAST MEDICAL HISTORY: Notable for the history of CLL for a number of years had passed chemotherapy on ibrutinib since 2014. Also, history of hypogammaglobulinemia, receiving subcutaneous weekly infusions at home. Note that during recent admission, the IgG level was appropriate. 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 Jaison Lee, history of carpal tunnel surgery, history of appendectomy, history of gout, history of COPD, history of emphysema, history of atrial fibrillation, history of chronic swelling of his extremities. Also, has a high-grade noninvasive bladder tumor followed by Dr. Leo Carrillo, had intravesical BCG completed in early fall 2018. Also, has a history of renal mass followed by Dr. Leo Carrillo. Hypothyroid, respiratory disease. SOCIAL HISTORY: Retired. Has a supportive family. I believe there is a daughter at home and I think there may also be a , I have to clarify. CURRENT MEDICATIONS: At this time include torsemide 40 daily, isosorbide [address] [address] CONSULTATION Name: DIXIE KESSLER Room #: 503-P ADM IN M.R.#: [id number] Admission: 04/19/19 Attend Phys: Luciano Cool MD Discharge: Date of : 38 Report #: [id number] mononitrate 30 mg daily, allopurinol 100 mg daily, Imbruvica 420 mg daily, amiodarone 100 daily, pantoprazole 40 daily, levothyroxine 25 mcg daily. Continues on prednisone 40 daily, gabapentin 100 t.i.d., metoprolol 100 b.i.d., guaifenesin 600 b.i.d., heparin 5000 b.i.d. subcutaneous prophylaxis, tramadol 50 q.6 p.r.n. He is on Zosyn 3.375 grams IV q.6, albuterol inhalation therapies, fluticasone 2 sprays nasal daily, Tylenol p.r.n., budesonide respiratory therapy b.i.d., ipratropium and albuterol q.6, azithromycin 500 mg daily for 7 days. PHYSICAL EXAMINATION: GENERAL: The patient appears his stated age. VITAL SIGNS: Height is 5 feet 4 inches, 162.6 cm; weight is 234 pounds, 106.4 kilograms. Recent blood pressure 135/63, respirations 18, pulse 62, afebrile at 97.4, O2 sat 96%, currently on 2 liters. MOOD: The patient is alert, conversant. NEUROLOGIC: Face is symmetrical. He is moving extremities. Feeding himself. Speech and thought pattern appear to be normal. LUNGS: Mostly clear, though may be some soft rhonchi that clear with cough. Some slight crackles in the bases. HEART: Appears regular rate. LYMPHATICS: No enlarged lymph nodes in the supraclavicular, cervical, axillary or inguinal region. ABDOMEN: Quite obese. SKIN: Has chronic swelling including upper and lower extremities, left arm is improved with less redness. 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 ASSESSMENT AND PLAN: 1. Chronic lymphocytic leukemia, counts stable. Continues on Imbruvica, which actually will probably help his immune function. 2. Hypogammaglobulinemia. Continues with diuretics and wraps. 3. Possible cellulitis, improved. 4. Pneumonia. Continue antibiotics, improved. 5. High-grade noninvasive bladder cancer, status post intravesical BCG followed by Dr. Leo Carrillo at . 6. Renal mass, stable, unclear etiology, followed by Dr. Carrillo. 7. Atrial fibrillation, meds per others. 8. Chronic kidney disease, stage 3, with baseline creatinine around 2, followed by others. 9. Chronic obstructive pulmonary disease. Aerosols and prednisone per others. 10. Pacemaker in situ. Defer to Cardiology. 11. Weakness per rehabilitation services. [facility] [address] [place] [address] CONSULTATION Name: DIXIE KESSLER Room #: 503-P ADM IN M.R.#: [id number] Admission: 04/19/19 Attend Phys: Lucinao Cool MD Discharge: Date of : 38 Report #: [id number] 12. Gastroesophageal reflux disease, reflux meds. 13. Gout, allopurinol. We will follow with you. <ELECTRONICALLY SIGNED> By: Bang Ruiz MD 04/22/19 [id number] Bang Ruiz MD /nt
[2019-04-22 07:14] LABS: ATYPICAL LYMPHS 2 %; LARGE PLATELETS FEW; NUCLEATED RBCS 1 /100WBC; PLATELET ESTIMATE NORMAL
[2019-04-22 07:15] LABS: ANISOCYTOSIS 1+
[2019-04-22 07:57] VITALS: BP 142/70
--- NOTE | 2019-04-22 13:38 | NUR ---
ASSUMED CARES AT 0700. PT AWAKE, ALERT AND ORIENTED *4. DENIES PAIN. VITALS REMAIN STABLE. PT CONTINUES TO HAVE BUE EDEMA (LYMPHEDEMA) AND BLE EDEMA. PT CONTINUES TO HAVE WEAKNESS, UP WITH 1 MIN ASSIST, GB AND WALKER AND TOLERATED WELL. CONTINUES TO HAVE BRUISING ON HIS ABDOMEN FROM HEPARIN SHOTS. Q1H VISUAL CHECKS. CALL LIGHT WITHIN REACH. FALL PRECAUTIONS IN PLACE
--- NOTE | 2019-04-22 14:52 | NUR ---
[facility] britt was on service with them and will be able to take back on service at [place].
[2019-04-22 20:52] VITALS: BP 147/70
--- NOTE | 2019-04-23 00:16 | NUR ---
PT ALERT AND ORIENTED X 4. AMB TO BR WITH CANE AND ASSIST X 1 WITHOUT DIFFICULTY. 2+ EDEMA IN ARMS BILAT. 1+ LE EDEMA BILAT. PT DENIES PAIN OR DISCOMFORT. PT SLEEPS IN RECLINER. CHAIR ALARM ON FOR SAFETY. PT CHECKED ON HOURLY ROUNDS.
[2019-04-23 09:07] VITALS: BP 152/72
--- NOTE | 2019-04-23 12:23 | NUR ---
ASSUMED CARES AT 0700. PT AWAKE, ALERT AND ORIENTED*4 BUT FORGETFUL. DENIES PAIN. VITALS REMAIN STABLE. PT CONTINUES TO HAVE 3+ EDEMA IN BUE, LYMPHEDEMA, TUBAL TITLE CLERK ON LEFT ARM. BLE EDEMA 2+, ASHWINI HOSE IN PLACE. ABDOMEN REMAINS FIRM AND DISTENDED, ACTIVE BS, BM THIS AM. PT UP WITH 1 MIN ASSIST, GB AND CANE AND TOLERATED WELL. Q1H VISUAL CHECKS. CALL LIGHT WITHIN REACH. FALL PRECAUTIONS IN PLACE
[2019-04-23 19:10] VITALS: BP 137/61
--- NOTE | 2019-04-24 00:39 | NUR ---
PT AMBULATING TO BATHROOM WITH WALKER AND STANDBY ASSIST AND IS TOLERATING WELL. DENIES NEED FOR PAIN MEDICATION. RESTING COMFORTABLY IN CHAIR. NO NEEDS VOICED. CALL LIGHT WITHIN REACH. WILL CONTINUE TO PROVIDE FREQUENT OBSERVATION.
--- NOTE | 2019-04-24 10:56 | NUR ---
PATIENT PLEASANT AND AGREEABLE. MAKES NEEDS KNOWN - NEEDS SOME ASSISTANCE WITH MANUVERING AROUND ROOM. COMPLIANT WITH MEDICATIONS. NO PAIN WHEN ASSESSED. LEFT UPPER EXTREMITY HAS WRAP ON - SWELLING STILL APARENT. PATIENT STATED BOWEL MOVEMENT YESTERDAY. NO ISSUES. HEART RATE STEADY AND STRONG WITH SYNCHRONIZED PACEMAKER. APPETITE GOOD - WITH COMPLETION OF MEALS.
[2019-04-24 19:21] VITALS: BP 105/61
--- NOTE | 2019-04-24 23:27 | NUR ---
PT ASSESSMENT DONE AND VSS. MEDS GIVEN AND WELL TOLERATED. FALL PRECAUTIONS IN PLACE. HOURLY ROUNDING. CALL LIGHT IN REACH. SLEEPING WELL. WILL CONTINUE TO MONITOR.
[2019-04-25 05:47] LABS: HEMOGLOBIN 12.4 gm/dL (14.0-18.0); MCH 29.2 pg (26.0-34.0); MCHC 31.7 g/dL (28.0-37.0); MCV 92.1 fL (80.0-100.0); RBC 4.24 mil/uL (4.50-6.00); RDW 17.1 % (10.5-14.5); WBC 18.6 thou/uL (4.0-11.0)
[2019-04-25 05:51] LABS: PLATELET COUNT 352 thou/uL (150-400)
[2019-04-25 05:53] LABS: CALCIUM 8.8 mg/dL (8.5-10.1); CREATININE 2.1 mg/dL (0.7-1.3); MAGNESIUM 2.4 mg/dL (1.8-2.4); POTASSIUM 3.7 mmol/L (3.5-5.1)
[2019-04-25 06:51] LABS: ANISOCYTOSIS 1+; METAMYELOCYTES 2 %; MYELOCYTES 1 %; PLATELET ESTIMATE NORMAL
[2019-04-25 06:52] LABS: LARGE PLATELETS FEW
[2019-04-25 08:02] VITALS: BP 136/76
--- NOTE | 2019-04-25 16:36 | NUR ---
ASSUMED CARE AT SHIFT CHANGE, ALERT AND ORIENTED X4, AND DENEIS ANY DISOCMFORT. ASSESMENT DOCUMENTED AND VSS. VOICED NO NEEDS AND WILL CONTINUE WITH POC.
[2019-04-25 19:32] VITALS: BP 125/67
--- NOTE | 2019-04-25 22:40 | NUR ---
PT ASSESSMENT COMPLETED AND VSS. MEDS GIVEN ORDERED AND WELL TOLERATED. EDEMA ARM WRAPS IN PLACE. FALL PRECAUTIONS IN PLACE. PT DENIES NEEDS. SLEEPING WELL. WILL CONTINUE TO MONITOR FREQUENTLY.
[2019-04-26 10:32] VITALS: BP 140/73
--- NOTE | 2019-04-26 10:48 | NUR ---
ASSUMED CARE AT 0700. PATIENT IS ALERT AND ORIENTED X3, BUT FORGETFUL AT TIMES. UP IN CHAIR FOR MEALS. LUNGS ARE CLEAR AND DEMINISHED. ABD IS SOFT WITH BSX4. PATIENT HAS BILATERAL LYMPH EDEMA IN UPPER ARMS. PATIENT HAS A S.L. IN HIS RIGHT A/C. IV SITE IS WITHOUT REDNESS OR SWELLING. PATIENT IS UP WITH ASSIST WITH ASSIST WITH HIS CANE. PATIENT IS [place] AND HAS CELLLULITIS IN HIS L.E. FALL AND SAFETY PROTOCOL IN PLACE. DENIES PAIN. CONTINUES TO PROGRESS TOWARDS D/C GOALS. WILL CONTINUE TO MONITER.
--- NOTE | 2019-04-26 14:16 | NUR ---
team meeting, recommendation: 21st, family to assist with bills and meds to both britt and his , [facility] ( pt, ot, st, and nursing). pcp to be cleared before returning to driving. see if pt can stay with family before retuning home.
[2019-04-26 19:00] VITALS: BP 120/62
--- NOTE | 2019-04-26 23:27 | NUR ---
PT ASSESSMENT DONE AND VSS. MED GIVEN AND WELL TOLERATED. FALL PRECAUTIONS IN PLACE. SLEEPING WELL. HOURLY ROUNDING. CALL LIGHT IN PLACE. WILL CONTINUE TO MONITOR.
[2019-04-27 08:04] VITALS: BP 141/71
[2019-04-27] MEDS ORDERED: VITAMIN D5000 UNIT PO (11:14)
[2019-04-27] MEDS ORDERED: PREDNISONE 20 M20 M1 PO (11:14)
--- NOTE | 2019-04-27 13:13 | NUR ---
Nutrition followup: Pt eating 100% of nearly all meals and supplements Ensure max BID. Will decrease to once daily. Bilateral lymphedema in upper arms present. Pt voices no questions/concerns for RD. REC obtain new weight as no weight taken since admission. On lasix, vitamin D supplementation. Continue as low nutrition risk.
--- NOTE | 2019-04-27 14:19 | NUR ---
ASSUMED CARES AT 0700. PT AWAKE, ALERT AND ORIENTED*4. DENIES PAIN. VITALS REMAIN STABLE. SAFE CHEMO DRUG PRECAUTIONS INITIATED PER PROTOCOL. CONTINUES TO HAVE BUE EDEMA/ CELLULITIS/ LYMPHEDEMA, TUBAL POLLS OR SURVEYS INTERVIEWER ON LEFT ARM. IV ON RIGHT FOREARM DC'D/ CLOTTED OFF. BLE EDEMA, ASHWINI HOSE IN PLACE. PT IS NOW MOD I IN THE ROOM AND TOLERATES WELL. Q1H VISUAL CHECKS. CALL LIGHT WITHIN REACH
[2019-04-27 20:00] VITALS: BP 133/62
--- NOTE | 2019-04-27 22:41 | NUR ---
ASSUMED CARE OF PT @1900 PT ASSESSED AT START OF SHIFT A&O4. SITTING UP IN RECLINER. DENIES PAIN. TAKE PILLS WHOLE WITH WATER. CHEMO PREC IN PLACE. CHAIR ALARM ON. BUE EDEMA 2+. GETTING READY FOR DISCHARGE TOMORROW. FALL PREC IN PLACE WILL CONT WITH POC TILL EOS.
[2019-04-28 05:29] LABS: HEMATOCRIT 38.8 % (42.0-52.0); HEMOGLOBIN 12.3 gm/dL (14.0-18.0); MCH 29.4 pg (26.0-34.0); MCHC 31.7 g/dL (28.0-37.0); MCV 92.5 fL (80.0-100.0); PLATELET COUNT 317 thou/uL (150-400); RDW 17.8 % (10.5-14.5); WBC 13.3 thou/uL (4.0-11.0)
[2019-04-28 06:12] LABS: ALBUMIN 2.8 g/dL (3.4-5.0); CALCIUM 8.9 mg/dL (8.5-10.1); CREATININE 2.2 mg/dL (0.7-1.3); MAGNESIUM 2.5 mg/dL (1.8-2.4); PHOSPHORUS 3.9 mg/dL (2.5-4.9); POTASSIUM 3.2 mmol/L (3.5-5.1)
[2019-04-28 08:49] LABS: PLATELET ESTIMATE NORMAL
[2019-04-28 09:48] VITALS: BP 127/75
[2019-04-28 10:07] VITALS: BP 127/75
[2019-04-28] MEDS ORDERED: CULTURELLE KID1 EAC1 PO (10:13)
[2019-04-28] MEDS ORDERED: KEFLEX500 M1 PO (10:13)
--- NOTE | 2019-04-28 10:23 | NUR ---
ASSUMED CARES AT 0700. PT AWAKE, ALERT AND ORIENTED*4. DENIES PAIN. LS COARSE, PT HAVING A PRODUCTIVE COUGH. POTASSIUM LOW THIS AM 3.2, REPLACED WITH PO POTASSIUM. LYPHEDEMA RN HERE TO SEE PT AND WRAP BUE. SAFE CHEMO PRECAUTIONS MAINTAINED. BLE EDEMA, EXTREMITIES ELEVATED AND ASHWINI HOSE IN PLACE. PT REMAINS MODIFIED INDEPENDENT IN THE ROOM. PT DC TEACHING TO BE COMPLETED WITH PT AT THE BEDSIDE. Q1H VISUAL CHECKS. CALL LIGHT WITHIN REACH. FALL PRECAUTIONS IN PLACE
--- NOTE | 2019-04-28 13:16 | NUR ---
DISCHARGE/HH ORDERS COMPLETED. FAXED TO [facility], VERIFIED RECEIVED. CALL PLACED TO ERIC TO NOTIFY OF PATIENT DISCHARGE TODAY. ERIC STATES JULI WILL SEE PATIENT TOMORROW.
== END 2019-04-28 15:34 | disposition home health service (06) | DRG 70 ==
LOC: ENTRNSPT 04-28 15:23
PROVIDERS: Nurse Practitioner; Nurse Practitioner Family; ADMIT Physical Medicine & Rehabilitation
DX: G93.41 Metabolic encephalopathy (principal); J96.21 Acute and chronic respiratory failure with hypoxia; J18.9 Pneumonia, unspecified organism; L03.114 Cellulitis of left upper limb; I50.32 Chronic diastolic (congestive) heart failure; C91.10 Chronic lymphocytic leukemia of B-cell type not having achieved remission; D80.1 Nonfamilial hypogammaglobulinemia; M46.20 Osteomyelitis of vertebra, site unspecified; M19.90 Unspecified osteoarthritis, unspecified site; J43.9 Emphysema, unspecified; I48.91 Unspecified atrial fibrillation; N18.3 Chronic kidney disease, stage 3 (moderate); G62.9 Polyneuropathy, unspecified; G89.4 Chronic pain syndrome; E03.9 Hypothyroidism, unspecified; N28.89 Other specified disorders of kidney and ureter; K21.9 Gastro-esophageal reflux disease without esophagitis; B95.61 Methicillin susceptible Staphylococcus aureus infection as the cause of diseases classified elsewhere; Z96.653 Presence of artificial knee joint, bilateral; R26.9 Unspecified abnormalities of gait and mobility; M1A.9XX0 Chronic gout, unspecified, without tophus (tophi); Z88.6 Allergy status to analgesic agent; Z90.49 Acquired absence of other specified parts of digestive tract; Z95.0 Presence of cardiac pacemaker; Z87.891 Personal history of nicotine dependence; Z88.8 Allergy status to other drugs, medicaments and biological substances; Z92.21 Personal history of antineoplastic chemotherapy
CPT/HCPCS: 10112

== ENCOUNTER 2019-05-13 18:46 | Inpatient (IN) | payer OTHER, BC ==
[~2019-05-13] VITALS: Ht 162.6 cm; Wt 102.3 kg
[~2019-05-13 18:46] MED LIST changes: +CULTURELLE KID1 EAC1 PO; +VITAMIN D5000 UNIT PO
[2019-05-13 19:04] VITALS: BP 137/56
[2019-05-13 20:23] VITALS: BP 123/69
[2019-05-13 20:39] LABS: URINE BILIRUBIN NEGATIVE (Negative); URINE BLOOD TRACE (Negative); URINE CLARITY CLEAR; URINE COLOR YELLOW; URINE GLUCOSE-RANDOM* NEGATIVE (Negative); URINE KETONES NEGATIVE (Negative); URINE LEUKOCYTES-REFLEX NEGATIVE (Negative); URINE NITRITE-REFLEX NEGATIVE (Negative); URINE PROTEIN (DIPSTICK) NEGATIVE (Negative); URINE SPECIFIC GRAVITY 1.015 (1.005-1.035); URINE UROBILINOGEN 0.2 E.U./dl (0.2-1.0)
[2019-05-13 21:41] LABS: HEMATOCRIT 40.2 % (42.0-52.0); HEMOGLOBIN 12.8 gm/dL (14.0-18.0); MCH 29.8 pg (26.0-34.0); MCHC 31.7 g/dL (28.0-37.0); PLATELET COUNT 114 thou/uL (150-400); RBC 4.28 mil/uL (4.50-6.00); RDW 18.8 % (10.5-14.5); WBC 9.5 thou/uL (4.0-11.0)
[2019-05-13 21:47] LABS: ANION GAP 5 mmol/L (7-16); BUN 28 mg/dL (7-18); CALCIUM 8.9 mg/dL (8.5-10.1); CHLORIDE 106 mmol/L (98-107); CO2 30 mmol/L (21-32); CREATININE 1.8 mg/dL (0.7-1.3); GLUCOSE 82 mg/dL (74-106); POTASSIUM 3.9 mmol/L (3.5-5.1); SODIUM 141 mmol/L (136-145)
[2019-05-13 21:57] LABS: ALBUMIN 2.8 g/dL (3.4-5.0); SGOT 13 U/L (15-37); SGPT 17 U/L (30-65); TOTAL BILIRUBIN 0.5 mg/dL (<0.1-1.0); TROPONIN-I <0.06 ng/mL (<0.06)
[2019-05-13 22:26] LABS: ABSOLUTE NEUTROPHILS 5.7 thou/uL (1.4-8.2); ATYPICAL LYMPHS 3 %
[2019-05-13 22:27] LABS: ANISOCYTOSIS 2+
[2019-05-13 22:43] VITALS: BP 123/69
[2019-05-13] MEDS ORDERED: KEFLEX500 M2 PO (23:12)
[2019-05-13] MEDS ORDERED: MUCINEX600 MG PO (23:13)
[2019-05-13] MEDS ORDERED: NITROSTAT0.4 M1 SUBLING (23:14)
[2019-05-13] MEDS ORDERED: FAMOTIDINE 10 M10 MG PO (23:15)
[2019-05-13] MEDS ORDERED: TORSEMIDE20 MG PO ×2 (23:15→23:16)
[2019-05-13 23:30] VITALS: BP 141/70
[2019-05-13 23:37] VITALS: BP 113/34
[2019-05-14] MEDS ORDERED: LOPRESSOR50 MG PO ×2 (02:46→02:51)
[2019-05-14] MEDS ORDERED: TOPROL XL100 MG PO (02:47)
[2019-05-14 05:39] VITALS: BP 117/60
--- NOTE | 2019-05-14 06:37 | NUR ---
PT ARRIVED ON CART FROM ER. PT USES WALKER AT HOME TO AMBULATE. A/0X4 AND ARRIVED ON 2L NC. PT BECOMES SOA WHEN LAYING DOWN IN BED, PREFERS TO SLEEP IN CHAIR. FOLLOWING POC WITH IV LASIX GIVEN AT 0600. PT HAS NO COMPLAINTS OF PAIN NOR NAUSEA. WOUND PICTURE TAKEN, WOUND CARE NURSE CONSULTED. CONSULT TO DR. LOGAN WILL BE CALLED A ROUTINE CONSULT. DISCUSSED WITH PT THAT HIS DAUGHTER NEEDS TO BRING HIS DAILY CHEMO MEDICATIONS UP TO HOSPITAL TO BE VERIFIED AND HAVE CONSENT SIGNED TO ALLOW STAFF TO GIVE MEDICATION.
[2019-05-14 08:24] VITALS: BP 125/58
[2019-05-14 09:11] LABS: CALCIUM 8.7 mg/dL (8.5-10.1); CREATININE 1.9 mg/dL (0.7-1.3); POTASSIUM 3.5 mmol/L (3.5-5.1)
[2019-05-14 10:23] LABS: HEMATOCRIT 40.6 % (42.0-52.0); MCH 30.2 pg (26.0-34.0); MCV 94.5 fL (80.0-100.0); RBC 4.3 mil/uL (4.50-6.00); RDW 19.7 % (10.5-14.5); WBC 8.4 thou/uL (4.0-11.0)
[2019-05-14 16:08] VITALS: BP 130/63
--- NOTE | 2019-05-14 16:14 | NUR ---
Assumed care approx. 0700 this AM. No acute events or changes. 80 mg IV lasix given this AM. Pt still using 2LNC. Generalized edema noted, especially in upper and lower extremities. Pt SOB w/ exertion. Pt home med taken to pharmacy and stickered to give daily starting tomorrow. Pt resting comfortably in chair. Pt slowly progressing toward plan of care.
--- NOTE | 2019-05-14 17:36 | 2DMMODE ---
[facility] [address] [employer] [place] [address] 2 D/M-MODE ECHOCARDIOGRAM Name: DIXONDIXIE ABEL V Room #: 364-P [facility] IN ..#: [id number] Admission: 05/13/19 Attend Phys: Abdulaziz Reed MD Discharge: Date of : 38 Report #: [id number] THIS REPORT FOR: //name// APPROVED REPORT Study performed: 05/14/2019 11:16:33 EXAM: Comprehensive 2D, Doppler, and color-flow Echocardiogram Patient Location: Bedside Room #: 364 Status: on-call BSA: 2.06 HR: 80 bpm BP: 1255/58 mmHg Rhythm: Atrial Fibrillation Other Information Study Quality: Adequate Risk Factors: Cardiac Risk Factors: HTN, Hyperlipidemia Indications COPD Atrial Fibrillation Dyspnea Pacemaker 2D Dimensions IVSd: 16.93 (7-11mm) LVOT Diam: 25.00 (18-24mm) LVDd: 29.59 mm PWd: 14.68 (7-11mm) Ascending Ao: 38.68 (22-36mm) LVDs: 20.18 (25-40mm) Aortic Root: 34.03 mm LV Single Plane 4CH: 59.64 % LV Single Plane 2CH: 70.73 % Biplane EF: 69.4 % Volumes Left Atrial Volume (Systole) Single Plane 4CH: 83.85 mL Single Plane 2CH: 65.14 mL LA ESV Index: 41.00 mL/m2 Aortic Valve AoV Peak Micheal.: 1.63 m/s [facility] [address] [place] [address] 2 D/M-MODE ECHOCARDIOGRAM Name: CHECODIXIE Low Room #: 364-P ADM IN M.R.#: [id number] Admission: 05/13/19 Attend Phys: Abdulaziz Reed MD Discharge: Date of : 38 Report #: [id number] Peak Gr.: 10.60 mmHg LVOT Max P.64 mmHg LVOT Max V: 1.19 m/s SWAPNIL Vmax: 3.70 cm2 Pulmonary Valve PV Peak Micheal.: 0.97 m/s PV Peak Gr.: 3.79 mmHg Tricuspid Valve TR Peak Micheal.: 2.35 m/s RAP Estimate: 7.00 mmHg TR Peak Gr.: 22.03 mmHg PA Pressure: 29.00 mmHg Left Ventricle The left ventricle is normal size. There is normal LV segmental wall motion. Moderate to severe concentric left ventricular hypertrophy. The left ventricular systolic function is normal. The left ventricular ejection fraction is within the normal range. LVEF is 65%. This study is not technically sufficient to allow evaluation of the LV diastolic function due to atrial fibrillation. Right Ventricle The right ventricle is normal size. The right ventricular systolic function is normal. Device lead is present in the right ventricle. Atria Left atrium is mildly to moderately dilated. The right atrium size is normal. Aortic Valve The Aortic valve is sclerotic. No aortic regurgitation is present. Increased velocity across LVOT due to ventricular hypertrophy. Mitral Valve There is mitral annular calcification. Trace mitral regurgitation. No evidence of mitral valve stenosis. Tricuspid Valve The tricuspid valve is normal in structure. Trace tricuspid regurgitation. Pulmonary artery pressure is 29 mmHg. Pulmonic Valve The pulmonary valve is normal in structure. There is no pulmonic valvular regurgitation. Great Vessels [facility] [address] [place] [address] 2 D/M-MODE ECHOCARDIOGRAM Name: DIXIE KESSLER V Room #: 364-P ADM IN M.R.#: [id number] Admission: 05/13/19 Attend Phys: Abdulaziz Reed MD Discharge: Date of : 38 Report #: [id number] The aortic root is normal in size. Ascending aorta measures 3.9 cm. IVC is normal in size and collapses >50% with inspiration. Pericardium There is no pericardial effusion. <Conclusion> The left ventricle is normal size. LVEF is 65%. Device lead is present in the right ventricle. Left atrium is mildly to moderately dilated. The Aortic valve is sclerotic. There is mitral annular calcification. Trace mitral regurgitation. The tricuspid valve is normal in structure. Trace tricuspid regurgitation. Pulmonary artery pressure is 29 mmHg. The pulmonary valve is normal in structure. Ascending aorta measures 3.9 cm. There is no pericardial effusion. <ELECTRONICALLY SIGNED> By: Jose Manuel Jean MD 05/14/19 1735 1735 1735 Jose Manuel Jean MD /INF
[2019-05-14 19:40] VITALS: BP 137/57
[2019-05-15 04:12] VITALS: BP 122/60
[2019-05-15 05:51] LABS: CREATININE 1.9 mg/dL (0.7-1.3); POTASSIUM 3.7 mmol/L (3.5-5.1)
--- NOTE | 2019-05-15 06:42 | NUR ---
PT UP WITH WALKER TO BATHROOM. PT REQUESTED TO TAKE SHOWER. PT USED SHOWER CHAIR AND COMPLETED TASK. WOUND CARE DONE ON LEFT ANKLE. FOLLOWING POC WITH IV LASIX. PT IS ON 1750ML FLUID RESTRICTION. HOURLY ROUNDING.
[2019-05-15 07:50] VITALS: BP 108/58
--- NOTE | 2019-05-15 11:14 | EKG ---
[address] [address] ELECTROCARDIOGRAM REPORT Name: DIXIE KESSLER V Room #: 364-P ADM IN M.R.#: [id number] Admission: 05/13/19 Attend Phys: Abdulaziz Reed MD Discharge: Date of : 38 Report #: [id number] THIS REPORT FOR: //name// [facility] ED Test Date: 2019-05-13 Test Time: 21:26:44 Pat Name: DIXIE KESSLER Department: Room: 364 Gender: M Marketing Financial Analyst: ALEXANDER : 1940 Requested By: Karyna Leslie Order Number: [id number] MD: Ian Desai Measurements Intervals [place] Rate: 60 P: 0 FL: 186 QRS: 27 QRSD: 96 T: 24 QT: 391 QTc: 391 Interpretive Statements Sinus rhythm Probable anteroseptal infarct, old Compared to ECG 07/26/2018 19:51:05 Myocardial infarct finding now present T-wave abnormality no longer present Electronically Signed On 05-15-2019 11:13:52 AGRICULTURAL INSPECTOR by Ian Desai [email or web address] <ELECTRONICALLY SIGNED> By: Ian Desai MD 05/15/19 1113 25 25 Ian Desai MD /EPI
[2019-05-15 16:01] VITALS: BP 109/51
--- NOTE | 2019-05-15 18:00 | NUR ---
PT NEEDS REINFORCEMENT REGARDING FLUID RESTRICIONS...STRICT I/O...BLE 4+ EDEMA..
[2019-05-15 19:46] VITALS: BP 123/48
[2019-05-16 04:10] VITALS: BP 142/90
--- NOTE | 2019-05-16 06:31 | NUR ---
PT A/0X4. PT SLEPT IN CHAIR OVERNIGHT AGAIN FOR EASE OF BREATHING. PT HAS NO COMPLAINTS OF PAIN. PT USES URINAL FOR VOIDING, AND USES WALKER TO AMBULATE. HOURLY ROUNDING.
[2019-05-16 08:12] VITALS: BP 128/59
--- NOTE | 2019-05-16 10:24 | NUR ---
WOUND CARE CONSULT; pt alert and oriented x4, cooperative, ulcer left lower leg, states wound has been present for a few months, but does not remember how wound started, chronic lymphedema present, states wound healing, pink viable tissue present no drainage, feet warm to touch, faint pulses +1, has compression socks in room and prefers these over tubigrip stockings, sleeps in chair due to sob, encouraged to keep pressure off wound and elevate legs as much as possible RECOMMENDATIONS; silver foam drsg, change M/W/F and prn, wear compression socks at all times, keep off wound as much as possible, encouraged to elevate legs as much as possible
--- NOTE | 2019-05-16 10:49 | NUR ---
WOUND CARE ADDENDUM; technical staff assistantROBSON BUTTS informed of wound care
--- NOTE | 2019-05-16 11:49 | NUR ---
RD consult received for pt with wound. Hx chronic lymphedema. Wound care to see for LL leg wound. Admit with acute on chronic heart failure and requires diuresis. Wt status is obese, BMI 39. Pt eats 100% of meals, voiced no questions about Na, carb control, fluid restricted diet. Eats high protein food and usually will drink a high protein supplement at home. Hopes to be discharged today. Low nutrition risk
[2019-05-16 13:49] VITALS: BP 128/59
--- NOTE | 2019-05-16 13:53 | NUR ---
ASSESSMESNT: CM REVIEWED CHART AND MET WITH PATIENT AT THE BEDSIDE. PT REPORTS HE LIVES AT HOME WITH HIS IN A HOUSE. PT REPORTS HE HAS ABOUT 3 STEPS TO ENTER THE HOME AND NO STEPS TO USE ONCE INSIDE. PT REPORTS THAT HE AMBULATES USING A CANE AND HAS A WALKER IF NEEDED. PT REPORTS HE IS INDEPENDENT WITH ADLS. PT HAS OXYGEN AT HOME PRN MOSTLY HE WEARS AT BEDTIME AND THE PROVIDER IS [facility]. PT WAS IN SERVICES WITH [facility] [employer] [facility] AND PLANS ON RESUMING IT. CM NOTIFIED [employer] OF DISCHARGE TODAY AND ALSO FAXED DISCHARGE ORDERS AND CONFIRMED THEY RECEIVED THEM. CM ALSO SPOKE WITH PATIENTS DAUGHTER OWEN/MIKAL AND NOTIFIED HER AND SHE IS COMING TO GET PT.
[2019-05-16 14:14] VITALS: BP 128/59
[2019-05-16 15:07] VITALS: BP 128/59
--- NOTE | 2019-05-16 16:48 | NUR ---
PT LT CALF WOUND IS HEALING WELL...PICTURE TAKEN AND SEEN BY WOUND NURSE THIS ISABELLE..
--- NOTE | 2019-05-25 11:02 | HC ---
[facility] [place] [address] CONSULTATION Name: DIXIE KESSLER V Room #: 364-P [facility] IN M.R.#: [id number] Admission: 05/13/19 Attend Phys: Jai Soria MD Discharge: 05/16/19 Date of : 38 Report #: [id number] THIS REPORT FOR: //name// CC: Pawan Soria DATE OF SERVICE: 05/16/2019 HISTORY OF PRESENT ILLNESS: The patient is an 79-year-old male previously known to us with chronic bilateral upper extremity lymphedema, atrial fibrillation, heart failure, prior permanent pacemaker, admitted with increased edema noted to have xifqx-hz-soyknhp diastolic heart failure. He also has COPD without exacerbation. He has been further diuresed. Fluid status stabilized. Cardiology has assisted. He is feeling much better. We are seeing him in rehabilitation medicine consultation. His prior history was noted for prior inpatient rehabilitation stay in 04/2019 with metabolic encephalopathy, healthcare-associated pneumonia and he had left hand cellulitis at that time, chronic bilateral upper extremity lymphedema, CLL. MEDICATIONS: Please see the full medication listing. ALLERGIES: No noted drug allergies, although another place, does list HYDROCODONE AN ALLERGY. SOCIAL HISTORY: Lives in a house with his , 3 steps in, was premorbidly independent without gait aids. REVIEW OF SYSTEMS: No current complaints of chest pain, shortness of breath or abdominal discomfort. PHYSICAL EXAMINATION: GENERAL: An 79-year-old white male in no obvious distress, pleasant, and alert. VITAL SIGNS: Last recorded temperature 97.3, pulse 66, respirations 17, and blood pressure 128/59. NEUROLOGIC: Facies are symmetric. He is a good historian. EXTREMITIES: Functional range of motion of both upper extremities. He has chronic bilateral upper extremity lymphedema. Lower extremities, no focal calf swelling. Functional range of motion with strength grade 4/5. He has bilateral support hose, lower extremities. Tone is intact. Functionally, he is modified independent with sit to stand and is ambulating 200 feet, supervision with a front-wheeled walker. Physical therapy has actually discharged him. ASSESSMENT: An 79-year-old male with the following problem list: 1. Medical complex with generalized debilitation. He is doing much better. 2. Chronic bilateral upper extremity lymphedema. 3. Ydjjq-ny-iyntars diastolic heart failure. Cardiology is assisted with [facility] [address] [place] [address] CONSULTATION Name: DIXIE KESSLER V Room #: 364-P [facility] IN M.R.#: [id number] Admission: 05/13/19 Attend Phys: Jai Soria MD Discharge: 05/16/19 Date of : 38 Report #: [id number] diuresis. 4. Paroxysmal atrial fibrillation. 5. Exogenous obesity. 6. Chronic obstructive pulmonary disease. 7. Chronic lymphocytic leukemia. PLAN: The patient is actually too high level for an acute in-hospital inpatient rehabilitation stay. Would anticipate he should be able to return directly home when medically cleared. Thank you for asking us to assist in this patient's care. <ELECTRONICALLY SIGNED> By: Luciano Cool MD 05/25/19 1102 1506 0218 Luciano Cool MD /nt
== END 2019-05-16 16:40 | disposition home health service (06) | DRG 292 ==
LOC: ER 18:46 → 3W 22:16 → EROBS 22:16 → 3W 23:24 → ENTRNSPT 05-16 16:06 → 3W 05-16 16:40
PROVIDERS: Nurse Practitioner; Nurse Practitioner Family; ADMIT Internal Medicine
DX: I50.33 Acute on chronic diastolic (congestive) heart failure (principal); C91.10 Chronic lymphocytic leukemia of B-cell type not having achieved remission; N18.3 Chronic kidney disease, stage 3 (moderate); M19.90 Unspecified osteoarthritis, unspecified site; J43.9 Emphysema, unspecified; M10.9 Gout, unspecified; G62.9 Polyneuropathy, unspecified; I89.0 Lymphedema, not elsewhere classified; I48.0 Paroxysmal atrial fibrillation; E66.09 Other obesity due to excess calories; G89.4 Chronic pain syndrome; E03.9 Hypothyroidism, unspecified; Z96.659 Presence of unspecified artificial knee joint; E66.01 Morbid (severe) obesity due to excess calories; Z90.49 Acquired absence of other specified parts of digestive tract; Z95.0 Presence of cardiac pacemaker; Z88.6 Allergy status to analgesic agent; Z87.891 Personal history of nicotine dependence; Z68.38 Body mass index [BMI] 38.0-38.9, adult; Z80.3 Family history of malignant neoplasm of breast; Z80.8 Family history of malignant neoplasm of other organs or systems; Z79.899 Other long term (current) drug therapy
CPT/HCPCS: 10879

== ENCOUNTER → 2019-06-20 | Outpatient (CLI) | payer OTHER, BC ==
[~2019-06-20] MED LIST changes: +FAMOTIDINE 10 M10 MG PO; +KEFLEX500 M2 PO; +LOPRESSOR50 MG PO; +NITROSTAT0.4 M1 SUBLING; +TOPROL XL100 MG PO; +TORSEMIDE20 MG PO
== END ==
LOC: SJCVC 15:52
DX: C91.10 Chronic lymphocytic leukemia of B-cell type not having achieved remission (principal); I13.0 Hypertensive heart and chronic kidney disease with heart failure and stage 1 through stage 4 chronic kidney disease, or unspecified chronic kidney disease; I50.32 Chronic diastolic (congestive) heart failure; N18.4 Chronic kidney disease, stage 4 (severe); R94.31 Abnormal electrocardiogram [ECG] [EKG]; I48.0 Paroxysmal atrial fibrillation; E78.5 Hyperlipidemia, unspecified; J43.9 Emphysema, unspecified; Z95.0 Presence of cardiac pacemaker

== ENCOUNTER 2019-09-20 18:09 | Inpatient (IN) | payer OTHER, BC ==
[~2019-09-20] VITALS: Ht 162.6 cm; Wt 107.9 kg
[2019-09-20 18:15] VITALS: BP 158/77
[2019-09-20 20:26] LABS: HEMATOCRIT 42.8 % (42.0-52.0); MCH 30.9 pg (26.0-34.0); MCHC 32.6 g/dL (28.0-37.0); MCV 94.7 fL (80.0-100.0); PLATELET COUNT 205 thou/uL (150-400); RBC 4.52 mil/uL (4.50-6.00); RDW 16.1 % (10.5-14.5)
[2019-09-20 20:27] LABS: ANION GAP 6 mmol/L (7-16); APTT 28.2 Seconds (24.5-32.8); BUN 34 mg/dL (7-18); CALCIUM 8.4 mg/dL (8.5-10.1); CHLORIDE 105 mmol/L (98-107); CO2 30 mmol/L (21-32); CREATININE 2.1 mg/dL (0.7-1.3); GLUCOSE 81 mg/dL (74-106); INR 1.1; POTASSIUM 3.8 mmol/L (3.5-5.1); PROTIME 10.9 Seconds (9.3-11.4); SODIUM 141 mmol/L (136-145)
[2019-09-20 20:37] LABS: ALBUMIN 3.3 g/dL (3.4-5.0); MAGNESIUM 2.6 mg/dL (1.8-2.4); SGOT 19 U/L (15-37); SGPT 10 U/L (30-65); TOTAL BILIRUBIN 0.6 mg/dL (<0.1-1.0); TOTAL PROTEIN 6.7 g/dL (6.4-8.2); TROPONIN-I <0.06 ng/mL (<0.06)
[2019-09-20 21:41] LABS: ABSOLUTE NEUTROPHILS 8.8 thou/uL (1.4-8.2)
[2019-09-20 21:42] LABS: ANISOCYTOSIS 1+; LARGE PLATELETS FEW; PLATELET ESTIMATE NORMAL; POIKILOCYTOSIS 1+
[2019-09-20 22:53] VITALS: BP 149/69
[2019-09-20 22:56] VITALS: BP 149/69
[2019-09-20 23:04] LABS: CHOLESTEROL 176 mg/dL (<200); HDL CHOLESTEROL 42 mg/dL (>40); LDL CHOLESTEROL 111 mg/dL (<100); SERUM ASSESSMENT Clear; TC:HDL 4.2 Ratio (Not establshd); TRIGLYCERIDE 115 mg/dL (<150); VLDL 23 mg/dL (<40)
[2019-09-20] MEDS ORDERED: ADVAIR 250-501 EACH INH (23:46)
[2019-09-20] MEDS ORDERED: CAL MAG ZINC +1 EAC1 PO (23:48)
[2019-09-20 23:50] VITALS: BP 164/64
[2019-09-20] MEDS ORDERED: VITAMIN B 12 PO (23:50)
[2019-09-20] MEDS ORDERED: FERROUS SULFATE PO (23:51)
[2019-09-20] MEDS ORDERED: HYOSCYAMINE0.125 MG PO (23:53)
[2019-09-20] MEDS ORDERED: CULTURELLE1 EACH (23:55)
[2019-09-20] MEDS ORDERED: LOPRESSOR50 MG PO (23:56)
[2019-09-20] MEDS ORDERED: VITAMIN B COMP1 EACH PO (23:57)
[2019-09-21 03:50] VITALS: BP 126/48
[2019-09-21 04:40] LABS: CALCIUM 8.9 mg/dL (8.5-10.1); CREATININE 2.4 mg/dL (0.7-1.3); POTASSIUM 4.5 mmol/L (3.5-5.1)
[2019-09-21 05:10] LABS: HEMATOCRIT 43.7 % (42.0-52.0); HEMOGLOBIN 14.3 gm/dL (14.0-18.0); MCH 31.6 pg (26.0-34.0); MCHC 32.8 g/dL (28.0-37.0); MCV 96.3 fL (80.0-100.0); RBC 4.53 mil/uL (4.50-6.00); RDW 16.7 % (10.5-14.5); WBC 10.5 thou/uL (4.0-11.0)
[2019-09-21 08:00] VITALS: BP 117/76
[2019-09-21 11:58] VITALS: BP 119/46
--- NOTE | 2019-09-21 14:27 | EKG ---
[facility] [place] [address] ELECTROCARDIOGRAM REPORT Name: DIXIE KESSLER V Room #: 359-P ADM IN M.R.#: [id number] Admission: 09/20/19 Attend Phys: Lyle Wood MD Discharge: Date of : 38 Report #: [id number] THIS REPORT FOR: cc: Pawan Hicks James A. DO Lundgren, Craig H. MD [facility] ~ THIS REPORT FOR: //name// [facility] ED Test Date: 2019-09-20 Test Time: 19:33:20 Pat Name: DIXIE KESSLER Department: Room: [facility] Gender: M Doughnut Fryer: CHELO : 1940 Requested By: Jaison Mon Order Number: [id number] MD: Morro Cid Measurements Intervals [place] Rate: 60 P: -27 MS: 202 QRS: -8 QRSD: 113 T: -19 QT: 445 QTc: 445 Interpretive Statements Sinus rhythm Inferior infarct, old Compared to ECG 05/13/2019 21:26:44 Inferior Q waves are now present Electronically Signed On 09-21-2019 14:25:39 CDT by Morro Cid [email or web address] <ELECTRONICALLY SIGNED> By: Morro Cid MD, [facility] 09/21/19 1425 32 32 Morro Cid MD, [facility] /EPI
[2019-09-21 17:16] VITALS: BP 140/58
--- NOTE | 2019-09-21 22:28 | HC ---
[facility] [place] [address] CONSULTATION Name: DIXIE KESSLER V Room #: 203-P ADM IN M.R.#: [id number] Admission: 09/20/19 Attend Phys: Lyle Wood MD Discharge: Date of : 38 Report #: [id number] THIS REPORT FOR: cc: Pawan Hicks James A. DO McKittrick, Richard James MD ~ CC: Jaison Lara MD DATE OF SERVICE: 09/21/2019 REASON FOR CONSULTATION: History of CLL and hypogammaglobulinemia. HISTORY OF PRESENT ILLNESS: The patient is a very pleasant 79-year-old male who has been a patient of [facility] for a number of years, who has a history of CLL, originally diagnosed in 2002. He had been on rituximab several times. More recently, he has been on ibrutinib since 03/2015. At the time of initiation, he had a lymphocytosis and adenopathy both of those have essentially resolved. He also has hypogammaglobulinemia, has been receiving weekly home subcutaneous infusions for quite some time with adequate and appropriate IgG levels. The patient was admitted. He has been self-quarantining and fairly isolated for 3-5 weeks. He is admitted with about a 2-week history of progressive upper extremity swelling, maybe neck swelling, also a cough, some shortness of air. Denies fevers, chills, headache, diarrhea, constipation, blood in his urine or stool, dysuria or skin rash. He does not think his arms any more discolored than usual. He does have some chronic redness. He does not get any worse, nor did his daughter. Also, note that this evaluation was done both by phone to talk with the patient and by reviewing the chart and talking with the nurse and also the patient's admitting doctor, Dr. Wood. I discussed with him and we felt it was not clinically necessary for me to examine the patient today given his COVID rule out status and also wishing to not use personal protective equipment that was not absolutely needed or likely to benefit the patient. PAST MEDICAL HISTORY: Notable for the CLL for a number of years since about 2002, ibrutinib since 2014, also hypogammaglobulinemia. 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 Jaison Lee, history of carpal tunnel surgery, history of appendectomy, history of gout, history of COPD, history of emphysema, history of atrial fibrillation, history of chronic swelling of his extremities, history of high-grade [facility] [address] [place] [address] CONSULTATION Name: DIXIE KESSLER V Room #: 203-P ADM IN M.R.#: [id number] Admission: 09/20/19 Attend Phys: Lyle Wood MD Discharge: Date of : 38 Report #: [id number] noninvasive bladder tumor followed by Dr. Leo Carrillo. Also, history of renal mass followed by Dr. Carrillo, also CT changes being followed since 2019, also ____, also history of respiratory diseases. SOCIAL HISTORY: Retired. Very supportive family, especially his daughter. MEDICATIONS: At this time in the hospital currently include: Vitamin B12 500 mcg daily, iron sulfate 325 daily, allopurinol 200 mg daily, torsemide 40 mg twice a day, metoprolol 50 mg b.i.d., isosorbide 30 mg b.i.d., amiodarone 100 mg daily, famotidine 20 daily, levothyroxine 25 mcg daily, clindamycin q. 8 hours, guaifenesin 600 q.12 p.r.n., fluticasone daily, ipratropium and albuterol respiratory therapy q. 4 hours inhalation, hydralazine p.r.n., fentanyl p.r.n., Tylenol p.r.n., methylprednisolone had been given one time, has not been continued. PHYSICAL EXAMINATION: VITAL SIGNS: Notable for a height of 5 feet 4 inches, which is 162.6 cm. Weight is 237.9 pounds or 107.9 kilograms. Blood pressure 117/76, O2 sat 93%, pulse 60, respirations 20, afebrile at 97.1. LABORATORY DATA: Electrolytes looking normal. Creatinine 2.1, which is sort of patient's baseline, then he ____ dropped down to 1.8. Liver functions normal. Coags normal. White count 14, which is where the patient has been running in the last 6 months. Hemoglobin 14.3, which is slightly higher than April, MCV 96.3, platelets 196 and 205, which is stable. Differential nonacute, no increased lymphocytes. Influenza A and B negative. TSH slightly elevated at 10.4, 25-hydroxy pending, COVID-19 test pending. RADIOLOGIC STUDIES: Include chest x-ray portable, which shows mild diffuse atelectasis in the bases. ASSESSMENT AND PLAN: 1. History of chronic lymphocytic leukemia. No evidence of progression. Continue ibrutinib. 2. Hypogammaglobulinemia done as an outpatient with good support. Continue same as outpatient. 3. Upper extremity swelling and neck swelling. The patient reports better after initiation of antibiotics. Cultures pending, even though he has not had a fever, ____ to be suspicious and agree with antibiotic, especially with a history of a possible infected pacemaker wires and infective diskitis. 4. 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 Leo Carrillo. 5. History of chronic diastolic heart failure with stable volume status. Defer to Cardiology. 6. Paroxysmal atrial fibrillation with PPM placement, [facility]. Defer to Cardiology. [address] [address] CONSULTATION Name: CHECODIXIE V Room #: 203-P [facility] IN M.R.#: [id number] Admission: 09/20/19 Attend Phys: Lyle Wood MD Discharge: Date of : 38 Report #: [id number] 7. Chronic obstructive pulmonary disease exacerbation and dyspnea. DuoNeb, oxygen, rule out COVID-19. 8. Hypertension. Meds per others. 9. 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 Continue his Imdur. Meds per others. 10. Chronic lymphedema. Defer to others. Empiric antibiotics. 11. Hyperlipidemia, per others. 12. Chronic kidney disease, stable. Defer to others. We will follow with you. <ELECTRONICALLY SIGNED> By: Bang Ruiz MD 09/21/19 2228 1005 1034 Bang Ruiz MD /sharyn
[2019-09-22 03:29] VITALS: BP 129/51
[2019-09-22 06:12] LABS: CALCIUM 8.6 mg/dL (8.5-10.1); CREATININE 2.2 mg/dL (0.7-1.3); POTASSIUM 4.1 mmol/L (3.5-5.1)
[2019-09-22 07:25] VITALS: BP 123/61
[2019-09-22 08:30] VITALS: BP 123/61
--- NOTE | 2019-09-22 10:00 | EKG ---
[facility] [place] [place] [address] ELECTROCARDIOGRAM REPORT Name: DIXIE KESSLER V Room #: 203-P ADM IN M.R.#: [id number] Admission: 09/20/19 Attend Phys: Lyle Wood MD Discharge: Date of : 38 Report #: [id number] THIS REPORT FOR: cc: Pawan Hicks James A. DO Lundgren, Craig H. MD [facility] ~ THIS REPORT FOR: //name// [facility] Test Date: 2019-09-22 Test Time: 07:50:56 Pat Name: DIXIE KESSLER Department: Room: 203 P Gender: M Chief Hospital Administrator: Anayeli ABRAMS : 1940 Requested By: Morro Cid Order Number: [id number] MD: Morro Cid Measurements Intervals [place] Rate: 60 P: -25 [place]: 205 QRS: 12 QRSD: 112 T: -22 QT: 435 QTc: 435 Interpretive Statements Sinus rhythm Nonspecific T wave abnormality Compared to ECG 09/20/2019 19:33:20 No significant change was found Electronically Signed On 09-22-2019 9:59:13 CDT by Morro Cid [email or web address] <ELECTRONICALLY SIGNED> By: Morro Cid MD, [facility] 09/22/19 0959 0750 0750 Morro Cid MD, [facility] /EPI
--- NOTE | 2019-09-22 10:23 | HC ---
[facility] [place] [address] CONSULTATION Name: DIXIE KESSLER V Room #: 203-P ADM IN M.R.#: [id number] Admission: 09/20/19 Attend Phys: Lyle Wood MD Discharge: Date of : 38 Report #: [id number] THIS REPORT FOR: cc: Pawan Hicks James A. DO Al-Mubaslat, Ahmad MD ~ CC: Pawan Wood DATE OF SERVICE: 09/21/2019 ENDOCRINE CONSULTATION CONSULTING PHYSICIAN: Dr. Johnson. REASON FOR CONSULTATION: Hypothyroidism. HISTORY OF PRESENT ILLNESS: This is an 79-year-old male patient whose medical background is rather extensive and is noted for chronic kidney disease, heart failure, chronic recurrent upper extremity lymphedema, atrial fibrillation, COPD, as well as a background of CLL. The patient has also been known to have hypothyroidism for over a year and is maintained on levothyroxine 50 mcg daily. The patient admits to being rather sporadic about its intake and notes that he does so in the evenings usually. The patient presented to the Emergency Department yesterday with complaints of progressive weight gain, fluid retention as well as cough and worsening shortness of breath. He was admitted for further care and monitoring. Additionally, the patient has gout and is maintained on Allopurinol. He is vitamin D deficient and is maintained on calcium with vitamin D3. REVIEW OF SYSTEMS: CONSTITUTIONAL: Fatigue, tiredness, weight gain and fluid retention, but not fever or chills. HEENT: Negative for sinus pain, ear drainage or sore throat. PULMONARY: Noted for shortness of breath, cough and hemoptysis. CARDIAC: Lower extremity swelling, generalized fluid retention, dyspnea on exertion, but not chest pain. GASTROINTESTINAL: Abdominal distention, abdominal discomfort, nausea, but no vomiting. NEUROLOGY: Negative for loss of consciousness, headaches, seizure activity. PSYCHIATRIC: Negative for delusions, hallucinations. Otherwise, review of systems noncontributory unless mentioned in HPI. PAST MEDICAL HISTORY: Noted for: [facility] [address] [place] [address] CONSULTATION Name: CHECODIXIE Low Room #: 203-P [facility] IN M.R.#: [id number] Admission: 09/20/19 Attend Phys: Lyle Wood MD Discharge: Date of : 38 Report #: [id number] 1. Congestive heart failure. 2. Chronic kidney disease. 3. CLL. 4. COPD. 5. Chronic recurring upper extremity lymphedema, bilateral. 6. Hypogammaglobulinemia. 7. Obstructive sleep apnea. 8. Osteoarthritis. 9. Obesity. 10. CAD, status post non-STEMI. 11. Gout. 12. Hypothyroidism. 13. Atrial fibrillation, status post pacemaker placement. 14. Peripheral neuropathy. 15. History of upper extremity cellulitis. ALLERGIES: HYDROCODONE. OUTPATIENT MEDICATIONS: Include: 1. Mucinex. 2. Torsemide 40 mg b.i.d. 3. Amiodarone 100 mg daily. 4. Albuterol p.r.n. 5. Allopurinol 200 mg daily. 6. Famotidine 30 mg daily. 7. Calcium carbonate/vitamin D3/mag 2 tablets daily. 8. Ferrous sulfate 325 mg daily. 9. Metoprolol 1 tab b.i.d. 10. Vitamin B complex daily. 11. Imdur 30 mg b.i.d. 12. Levothyroxine 50 mcg daily. 13. Acetaminophen 325 mg daily. FAMILY HISTORY: Noncontributory. SOCIAL HISTORY: The patient denies use of tobacco, alcohol or illicit drugs. PHYSICAL EXAMINATION: GENERAL: A pleasant male patient who is not in apparent pain or distress, sitting upright in bed, seems comfortable, not in apparent distress. VITAL SIGNS: Blood pressure is 119/46 mmHg, heart rate is 62 beats per minute, respiration 18 per minute, temperature 36.3 degrees. CONSTITUTIONAL: He is sitting upright, appears relatively comfortable, not in pain or distress. HEENT: Anicteric sclerae. Intact extraocular motions. NECK: Supple, no JVD, no thyromegaly. [address] [address] CONSULTATION Name: DIXIE KESSLER V Room #: 203-P ADM IN M.R.#: [id number] Admission: 09/20/19 Attend Phys: Lyle Wood MD Discharge: Date of : 38 Report #: [id number] CHEST: Noted for distant breath sounds, scattered rales, rhonchi. HEART: Regular rate and rhythm without murmurs or gallops. ABDOMEN: Soft and lax without tenderness or organomegaly, has active bowel sounds. EXTREMITIES: Lower extremity exam is noted for edema bilaterally with chronic stasis dermatitis. Upper extremity exam is noted for bilateral significant lymphedema. NEUROLOGIC: Awake, alert and oriented to time, place and person. The remainder of his examination is nonfocal. PSYCH: Appropriate, interactive. Normal mood and affect. LABORATORY RESULTS: Sodium 142, potassium 4.5, chloride 105, CO2 of 28, anion gap 9, BUN 36, creatinine 2.4, glucose 221. AST 19, total bilirubin 0.6, direct bilirubin 0.3, calcium 8.9, phosphorus 3.9, magnesium 2.6, uric acid 8.4, alkaline phosphatase 664, ALT 10, total protein 6.7, albumin 3.3, EGFR 26. Troponin not detectable. Total cholesterol 176, triglycerides 115, HDL 42, LDL 111. TSH 10.436. ASSESSMENT AND PLAN: 1. Hypothyroidism. As noted above, the patient has an uncontrolled TSH of 10.43. In the setting of congestive heart failure and the propensity for fluid retention, this certainly is not ideal and can set the patient off for a worse version of these issues. The patient was counseled at length about the importance of maintaining adequate thyroid balance given the vast and diverse impact of thyroid on whole body systems. The patient seemed to understand this well. After having discussed the patient's levothyroxine intake methodology with him at length, it appears that the patient has been inconsistent with its intake as well as doing so in evenings as opposed to on an empty stomach. The patient was counseled that this ought to be done in the morning on an empty stomach, so as to avoid malabsorption and loss of what could be up to 60% of his levothyroxine intake. Moreover, I will raise his dosage to 100 mcg daily with a stress on the need to perform TSH and free T4 levels 6-8 weeks from now to better evaluate the impact of this dose selection and whether or not to change it further. 2. Hypertension. The patient's ____ blood pressure control is adequate, he is to continue the same regimen. 3. Gout. The patient is currently on allopurinol 200 mg daily and is stable on that regimen, he is to continue with the same. I have reviewed the patient's clinical care notes, laboratory data as well as his external care notes from Dr. Acevedo at length for over 35 minutes. [facility] [address] [place] [address] CONSULTATION Name: DIXONDIXIE ABEL V Room #: 203-P ADM IN M.R.#: [id number] Admission: 09/20/19 Attend Phys: Lyle Wood MD Discharge: Date of : 38 Report #: [id number] I certainly appreciate this consultation by Dr. Ford. <ELECTRONICALLY SIGNED> By: Juan Antonio York MD 09/22/19 1023 1220 1404 Juan Antonio York MD /nt
[2019-09-22 11:20] VITALS: BP 169/47
[2019-09-22 11:40] VITALS: BP 169/47
[2019-09-22] MEDS ORDERED: SYNTHROID100 MC1 PO (12:00)
[2019-09-22] MEDS ORDERED: IRON325 PO (12:00)
[2019-09-22] MEDS ORDERED: CLEOCIN HCL150 MG PO (12:00)
[2019-09-22 12:29] VITALS: BP 169/47
== END 2019-09-22 15:25 | disposition home or self-care (01) | DRG 602 ==
LOC: ER 18:09 → EROBS 21:23 → 3W 21:23 → 2N 09-21 19:38
PROVIDERS: Emergency Medicine; Internal Medicine; Nurse Practitioner Family; ADMIT Internal Medicine
DX: L03.114 Cellulitis of left upper limb (principal); I50.33 Acute on chronic diastolic (congestive) heart failure; I13.0 Hypertensive heart and chronic kidney disease with heart failure and stage 1 through stage 4 chronic kidney disease, or unspecified chronic kidney disease; J44.1 Chronic obstructive pulmonary disease with (acute) exacerbation; C91.10 Chronic lymphocytic leukemia of B-cell type not having achieved remission; D80.1 Nonfamilial hypogammaglobulinemia; D80.4 Selective deficiency of immunoglobulin M [IgM]; N18.4 Chronic kidney disease, stage 4 (severe); Z68.41 Body mass index [BMI] 40.0-44.9, adult; I42.9 Cardiomyopathy, unspecified; L03.113 Cellulitis of right upper limb; M19.90 Unspecified osteoarthritis, unspecified site; G89.4 Chronic pain syndrome; M10.9 Gout, unspecified; G62.9 Polyneuropathy, unspecified; I48.0 Paroxysmal atrial fibrillation; I44.7 Left bundle-branch block, unspecified; E78.5 Hyperlipidemia, unspecified; G47.33 Obstructive sleep apnea (adult) (pediatric); E66.9 Obesity, unspecified; E03.9 Hypothyroidism, unspecified; Z96.653 Presence of artificial knee joint, bilateral; N28.9 Disorder of kidney and ureter, unspecified; J84.10 Pulmonary fibrosis, unspecified; I49.5 Sick sinus syndrome; G47.00 Insomnia, unspecified; Z95.0 Presence of cardiac pacemaker; Z79.01 Long term (current) use of anticoagulants; Z90.49 Acquired absence of other specified parts of digestive tract; Z88.6 Allergy status to analgesic agent; Z87.891 Personal history of nicotine dependence; Z20.828 Contact with and (suspected) exposure to other viral communicable diseases
CPT/HCPCS: 10081; 10879

== ENCOUNTER 2019-12-14 16:25 | Emergency (ER) | payer OTHER, BC ==
[~2019-12-14] VITALS: Ht 162.6 cm; Wt 108.0 kg
[~2019-12-14 16:25] MED LIST changes: +ADVAIR 250-501 EACH INH; +CAL MAG ZINC +1 EAC1 PO; +CULTURELLE1 EACH; +FERROUS SULFATE PO; +HYOSCYAMINE0.125 MG PO; +IRON325 PO; +SYNTHROID100 MC1 PO; +VITAMIN B 12 PO; +VITAMIN B COMP1 EACH PO
[2019-12-14 17:43] VITALS: BP 128/76
[2019-12-14 19:59] LABS: HEMATOCRIT 44.4 % (42.0-52.0); HEMOGLOBIN 14.6 gm/dL (14.0-18.0); MCH 32.1 pg (26.0-34.0); MCHC 32.8 g/dL (28.0-37.0); MCV 97.7 fL (80.0-100.0); PLATELET COUNT 204 thou/uL (150-400); RBC 4.55 mil/uL (4.50-6.00); RDW 16.1 % (10.5-14.5)
[2019-12-14 20:14] LABS: CREATININE 2.6 mg/dL (0.7-1.3); POTASSIUM 3.5 mmol/L (3.5-5.1)
[2019-12-14 20:20] LABS: ALBUMIN 3.4 g/dL (3.4-5.0); TOTAL BILIRUBIN 0.9 mg/dL (0.2-1.0); TOTAL PROTEIN 7.1 g/dL (6.4-8.2)
[2019-12-14 20:40] LABS: URINE BILIRUBIN NEGATIVE (Negative); URINE BLOOD TRACE (Negative); URINE CLARITY CLEAR; URINE COLOR YELLOW; URINE GLUCOSE-RANDOM* NEGATIVE (Negative); URINE KETONES NEGATIVE (Negative); URINE LEUKOCYTES-REFLEX NEGATIVE (Negative); URINE NITRITE-REFLEX NEGATIVE (Negative); URINE PROTEIN (DIPSTICK) 1+ (Negative); URINE UROBILINOGEN 0.2 E.U./dl (0.2-1.0)
[2019-12-14 21:10] LABS: SQUAMOUS 0-3 Few /LPF (0-3)
[2019-12-14 21:11] LABS: BACTERIA-REFLEX 1-9 Few /HPF (None Seen); CELLULAR CASTS 4-10 Moderate /LPF (None Seen); CRYSTALS None Seen /LPF (None Seen); HYALINE CASTS 0-3 Few /LPF (None Seen); MUCUS 0-3 Light strn/LPF (None Seen); URINE RBC 0-2 Rare /HPF (0-2); URINE WBC-REFLEX 0-5 Rare /HPF (0-5)
[2019-12-14 21:30] LABS: ABSOLUTE NEUTROPHILS 7.4 thou/uL (1.4-8.2); ANISOCYTOSIS 1+
== END 2019-12-14 21:35 | disposition home or self-care (01) ==
LOC: ER 16:25
PROVIDERS: Emergency Medicine
DX: M25.561 Pain in right knee (principal); R10.9 Unspecified abdominal pain; I50.9 Heart failure, unspecified; N18.3 Chronic kidney disease, stage 3 (moderate); I48.91 Unspecified atrial fibrillation; J44.9 Chronic obstructive pulmonary disease, unspecified; Z95.0 Presence of cardiac pacemaker; Z87.891 Personal history of nicotine dependence; Z79.899 Other long term (current) drug therapy; Z90.49 Acquired absence of other specified parts of digestive tract; W01.0XXA Fall on same level from slipping, tripping and stumbling without subsequent striking against object, initial encounter; Y93.89 Activity, other specified; Y92.89 Other specified places as the place of occurrence of the external cause; Y99.8 Other external cause status

== ENCOUNTER 2020-02-16 21:27 | Inpatient (IN) | payer OTHER, BC ==
[~2020-02-16] VITALS: Ht 162.6 cm; Wt 106.6 kg
[2020-02-16 21:37] VITALS: BP 133/68
[2020-02-16 23:02] LABS: MCH 32.4 pg (26.0-34.0)
[2020-02-16 23:04] LABS: HEMATOCRIT 36.5 % (42.0-52.0); HEMOGLOBIN 11.8 gm/dL (14.0-18.0); MCHC 32.3 g/dL (28.0-37.0); MCV 100.4 fL (80.0-100.0); PLATELET COUNT 214 thou/uL (150-400); RBC 3.63 mil/uL (4.50-6.00); RDW 17.1 % (10.5-14.5); WBC 18.8 thou/uL (4.0-11.0)
[2020-02-16 23:17] LABS: CALCIUM 10.9 mg/dL (8.5-10.1)
[2020-02-16 23:23] LABS: ALBUMIN 3.4 g/dL (3.4-5.0); TOTAL BILIRUBIN 1.4 mg/dL (0.2-1.0); TOTAL PROTEIN 6.7 g/dL (6.4-8.2)
[2020-02-16 23:36] LABS: ABSOLUTE NEUTROPHILS 10.2 thou/uL (1.4-8.2); ANISOCYTOSIS 1+
[2020-02-16 23:37] LABS: LARGE PLATELETS SEVERAL; PLATELET ESTIMATE NORMAL
[2020-02-17 01:35] LABS: URINE BILIRUBIN NEGATIVE (Negative); URINE BLOOD 2+ (Negative); URINE CLARITY CLEAR; URINE COLOR YELLOW; URINE GLUCOSE-RANDOM* NEGATIVE (Negative); URINE KETONES NEGATIVE (Negative); URINE LEUKOCYTES-REFLEX NEGATIVE (Negative); URINE NITRITE-REFLEX NEGATIVE (Negative); URINE PROTEIN (DIPSTICK) 2+ (Negative); URINE UROBILINOGEN 0.2 E.U./dl (0.2-1.0)
[2020-02-17 01:45] LABS: BACTERIA-REFLEX 1-9 Few /HPF (None Seen); CELLULAR CASTS 0-3 Few /LPF (None Seen); CRYSTALS None Seen /LPF (None Seen); FINE GRANULAR CASTS 0-3 Few /LPF (None Seen); HYALINE CASTS 0-3 Few /LPF (None Seen); MUCUS 0-3 Light strn/LPF (None Seen); SQUAMOUS 0-3 Few /LPF (0-3); URINE RBC 3-10 Few /HPF (0-2); URINE WBC-REFLEX 0-5 Rare /HPF (0-5)
[2020-02-17 02:13] VITALS: BP 133/68
[2020-02-17 03:15] VITALS: BP 133/68
[2020-02-17 03:45] VITALS: BP 142/57
--- NOTE | 2020-02-17 05:33 | NUR ---
Pt was an ER admit who arrived at 0330. Pt presented with AMS, ADRIANNA but upon arrival to the floor, pt is alert and oriented. Pt is stable. Denies any pain. Admission assessment and data completed. Scheduled meds administered to pt. RN spoke to pt's daughter over the phone. Pt's daughter had to RN about pt's bag that had his hearing aid and phone and medication in it, she stated that the bag was in ER when the patient was there but upon arrival to the floor, the bag was not present with patient. RN called ER to follow up with pt's belongings. Currently waiting in feedback from ER. Fall precaution in place. Continue to monitor patient. No further needs that time.
[2020-02-17 05:59] LABS: CALCIUM 10.7 mg/dL (8.5-10.1); CREATININE 7.7 mg/dL (0.7-1.3); POTASSIUM 4.7 mmol/L (3.5-5.1)
--- NOTE | 2020-02-17 07:24 | EKG ---
[facility] [place] [address] ELECTROCARDIOGRAM REPORT Name: DIXIE KESSLER V Room #: 201-P ADM IN M.R.#: [id number] Admission: 02/17/20 Attend Phys: Jai Soria MD Discharge: Date of : 38 Report #: [id number] THIS REPORT FOR: cc: Pawan Hicks,Elia Reina MD [facility] ~ THIS REPORT FOR: //name// [facility] ED Test Date: 2020-02-16 Test Time: 22:30:42 Pat Name: DIXIE KESSLER Department: Room: 201 Gender: M Lean Facilitator: MARKOS : 1940 Requested By: Frederick Burleson Order Number: [id number] MD: Elia Gonzalez Measurements Intervals [place] Rate: 82 P: 0 ME: 140 QRS: -48 QRSD: 215 T: 106 QT: 494 QTc: 577 Interpretive Statements Ventricular-paced rhythm No further analysis attempted due to paced rhythm Compared to ECG 09/22/2019 07:50:56 Sinus rhythm no longer present T-wave abnormality no longer present Electronically Signed On 02-17-2020 7:24:39 CDT by Elia Gonzalez [email or web address] <ELECTRONICALLY SIGNED> By: Elia Gonzalez MD, FACC 02/17/20 0724 29 29 Elia Gonzalez MD, FAC /EPI
--- NOTE | 2020-02-17 08:45 | NUR ---
PATIENT REFUSED INTAKE, INCLUDING SIPS OF WATER. SWALLOW FUNCTION COULD NOT BE ASSESSED. PERSONNEL ASSOCIATE NOTIFIED PATIENT'S NURSE, MIKAYLA.
--- NOTE | 2020-02-17 08:51 | NUR ---
PT REFUSING SPEECH THERAPY AND ROBERTS PLACEMENT THIS AM. WILL INFORM DR. ZHU WHEN SHE ROUNDS IN THE AM.
[2020-02-17 14:31] LABS: URINE BILIRUBIN NEGATIVE (Negative); URINE BLOOD 2+ (Negative); URINE CLARITY CLEAR; URINE COLOR YELLOW; URINE GLUCOSE-RANDOM* NEGATIVE (Negative); URINE KETONES NEGATIVE (Negative); URINE LEUKOCYTES NEGATIVE (Negative); URINE NITRITE NEGATIVE (Negative); URINE PROTEIN (DIPSTICK) 2+ (Negative); URINE SPECIFIC GRAVITY 1.015 (1.005-1.035); URINE UROBILINOGEN 0.2 E.U./dl (0.2-1.0)
[2020-02-17 14:39] LABS: URINE CREATININE-RANDOM* 62.7 mg/dL
[2020-02-17 14:42] LABS: BACTERIA 1-9 Few /HPF (None Seen); CASTS None Seen /LPF (None Seen); CRYSTALS None Seen /LPF (None Seen); SQUAMOUS 0-3 Few /LPF (0-3); URINE RBC 0-2 Rare /HPF (0-2); URINE WBC None Seen /HPF (0-5)
[2020-02-17 14:47] LABS: URINE PROTEIN-RANDOM* 484.4 mg/dL (<11.9)
[2020-02-17 17:11] VITALS: BP 144/65
--- NOTE | 2020-02-17 17:38 | NUR ---
patient admits with generalized weakness, AMS. Patient with hx CLL. Dr Ruiz notation of may not be able to tolerate cont treatement. Dr Barrios consulted. Chart reviewed and sp with team. Patient resides in independent home with . 3 steps to enter and all needs on one level. Patient has walker, commode, walk in shower, chair and sleeps in reclyner. PCP Dr Pawan Curry. [facility] following. Patient may need post acute care depending on care decisions once discussed with phys. On service with [facility]. Faxed updates to Home health care.
--- NOTE | 2020-02-17 18:00 | NUR ---
DURING THE MIDDLE OF THE DAY PT BECAME MORE COOPERATIVE AND ALLOWED ME TO PLACE ROBERTS CATHETER. THE SOON THE SON WENT DOWN PT WOULD NOT ALLOW ME TO ADJUST HIS TELE MONITOR EVEN WITH SON IN LAW AT BEDSIDE. DR. CALDERON HERE TO TALK TO SON IN LAW AND PATIENT. WILL CONTINUE TO ASSESS.
[2020-02-17 19:30] VITALS: BP 163/100
[2020-02-18 03:30] VITALS: BP 145/53
--- NOTE | 2020-02-18 04:03 | NUR ---
Assumed pt care at 1900. Pt is alert and confused. Pt is alert to self only. Pt agitated. Fall precaution in place. No sign of distress noted in pt. Denies any pain. Assessment completed and documented. Scheduled meds administered to pt. Tolerated PO intake. Pacemaker in place. No acute events overnight. Continue to monitor pt. No further needs at this time.
[2020-02-18 05:49] LABS: HEMATOCRIT 35.6 % (42.0-52.0); HEMOGLOBIN 11.7 gm/dL (14.0-18.0); MCHC 32.8 g/dL (28.0-37.0); MCV 100.5 fL (80.0-100.0); RBC 3.54 mil/uL (4.50-6.00); WBC 8.5 thou/uL (4.0-11.0)
[2020-02-18 05:55] LABS: CALCIUM 10.4 mg/dL (8.5-10.1); CREATININE 7.5 mg/dL (0.7-1.3); POTASSIUM 4.2 mmol/L (3.5-5.1)
[2020-02-18 07:25] VITALS: BP 153/69
[2020-02-18 11:15] VITALS: BP 137/77
--- NOTE | 2020-02-19 02:22 | NUR ---
PT ARRIVED ON THE UNIT FROM [facility]TH @2330. PT ALERT TO SELF. CONFUSED. ON 2L OF O2. MED GIVEN AND PT BERNARD IT WELL. GENERALIZED EDEMA. FOLLEY INTACT. DRY COUGH NOTED. PT ON COMFORT CARE. FALL PREC IN PLACE AND WILL CONT TO MONITOR.
[2020-02-19 03:38] VITALS: BP 110/62
[2020-02-19 05:46] LABS: HEMATOCRIT 36.9 % (42.0-52.0); HEMOGLOBIN 11.9 gm/dL (14.0-18.0); MCH 32.8 pg (26.0-34.0); MCHC 32.3 g/dL (28.0-37.0); MCV 101.5 fL (80.0-100.0); RBC 3.64 mil/uL (4.50-6.00); RDW 17.6 % (10.5-14.5)
[2020-02-19 06:13] LABS: ALBUMIN 2.9 g/dL (3.4-5.0); CALCIUM 10.6 mg/dL (8.5-10.1); CREATININE 8.2 mg/dL (0.7-1.3); PHOSPHORUS 6.9 mg/dL (2.5-4.9)
[2020-02-19 06:19] LABS: POTASSIUM 4.4 mmol/L (3.5-5.1)
[2020-02-19 08:30] VITALS: BP 130/67
[2020-02-19 09:59] LABS: NUCLEATED RBCS 1 /100WBC
[2020-02-19 10:09] LABS: PLATELET COUNT 197 thou/uL (150-400)
[2020-02-19 10:11] LABS: ANISOCYTOSIS 1+
--- NOTE | 2020-02-19 11:57 | NUR ---
PT ON COMFORT CARE NEEDS HOSPICE AT HOME WAS NOTIFIED BY RN THAT PT CAN DC TODAY IF HOSPICE CAN BE ARRANGED AT HOME. SPOKE WITH PT'S DTR (OWEN) PT'S ALREADY ON SERVICE WITH [facility] SO REFERRAL FAX TO [facility] RECEIVED CONFIRMATION AND SPOKE WITH RN ASSISTANT COUNSEL THEY CAN ADMIT PT AT HOME TOMORROW THEY ARE AT CAPACITY WITH THEIR NURSES TODAY AND WILL HAVE TO GET EQUIPMENT DELIVERED TO HOME. PT'S DTR IS FINE WITH TOMORROW [facility] WILL CALL HER TOMORROW AM TO SET UP TIME. DP TO FOLLOW.
[2020-02-19 12:14] LABS: URINE BILIRUBIN NEGATIVE (Negative); URINE BLOOD 2+ (Negative); URINE CLARITY CLEAR; URINE COLOR YELLOW; URINE GLUCOSE-RANDOM* NEGATIVE (Negative); URINE KETONES TRACE (Negative); URINE LEUKOCYTES NEGATIVE (Negative); URINE NITRITE NEGATIVE (Negative); URINE PROTEIN (DIPSTICK) 2+ (Negative); URINE UROBILINOGEN 0.2 E.U./dl (0.2-1.0)
[2020-02-19 12:16] LABS: URINE CREATININE-RANDOM* 69.9 mg/dL
[2020-02-19 12:34] LABS: COARSE GRANULAR CASTS 0-3 Few /LPF (None Seen); MUCUS 4-6 Moderate strn/LPF (None Seen); SQUAMOUS 0-3 Few /LPF (0-3)
[2020-02-19 12:35] LABS: BACTERIA 1-9 Few /HPF (None Seen); CRYSTALS None Seen /LPF (None Seen); URINE RBC 0-2 Rare /HPF (0-2); URINE WBC 0-5 Rare /HPF (0-5)
[2020-02-19 12:36] LABS: WBC CLUMPS Occasional (None Seen)
--- NOTE | 2020-02-19 13:29 | NUR ---
Assumed care of pt at 0700. Pt a&ox1. Possible d/c tomorrow 02/19 at [facility]. IV fluids infusing. Foreman catheter in place. Upper extremity ultrasound performed by [facility]. Fall precautions in place. Will continue to monitor.
[2020-02-19 16:10] VITALS: BP 118/60
--- NOTE | 2020-02-20 05:27 | NUR ---
PT LYING IN BED. COMFORT CARE. ROXANOL FOR PAIN AND ATIVAN FOR AGITATION. FREQUENT OBSERVATION.
--- NOTE | 2020-02-20 07:51 | HC ---
[facility] [place] [address] CONSULTATION Name: DIXIE KESSLER V Room #: 436-P ADM IN M.R.#: [id number] Admission: 02/17/20 Attend Phys: Oksana Cedeno MD Discharge: Date of : 38 Report #: [id number] THIS REPORT FOR: cc: Pawan Hicks James A. DO McKittrick, Richard James MD ~ CC: Nuvia Cedeno PHYSICIAN REQUESTING CONSULT: Dr. Jai Soria. REASON FOR CONSULTATION: History of CLL. HISTORY OF PRESENT ILLNESS: The patient is an 79-year-old male who was admitted for worsening edema and weakness and difficulty ambulating. He is also having generalized weakness and confusion. He had recently had a CAT scan in about 01/19/2020. I discussed this previously with the daughter. This had shown no enlargement of lymph nodes, but does show changes worrisome for progression of his lymphoma to high-grade lymphoma or perhaps progression of an occult metastatic cancer. This had shown a number of lytic changes in the clavicles and spine and pelvic bones. They were new and also with some expansion. I previously talked with the daughter and I told her I did not think the patient would benefit from a biopsy as I did not know that he would tolerate any additional therapy as he has been having declining health. He has been on ibrutinib, which he has been tolerating reasonably well. At this time, the patient is at hospital. He is hard of hearing, appears to have a very hard time focusing both to answer questions, and I am not sure his level of understanding. I tried explaining that his CAT scan had showed some worrisome changes, but he seems to have drift off and not be able to pay attention or to concentrate. I tried calling his daughter on 2 different phone numbers at [phone] as well as [phone]. No one answered. I did leave a generic message it did not identify whose phone number had been reached. I note the patient, he was found to have labs significant for a creatinine of 8, hemoglobin 11.8, white count 18.8 with an ANC of 10,200 and ALC of 6300, platelets of 214. It sounds like from the H and P note, the patient had not had any recent fevers, chills, shortness of air, abdominal pain, emesis. He does have and has had great difficulty with peripheral edema, both his legs and his arms. PAST MEDICAL HISTORY: Notable for the CLL since about 2002, on ibrutinib since 2014, also hypogammaglobulinemia with replacement at home. 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 Also, history of infectious diskitis with chronic antibiotic suppression with Dr. Jaison Lee, history of gout, COPD, emphysema, atrial fibrillation, chronic swelling, history of high-grade noninvasive bladder tumor. Also, history of a renal mass followed since 2019. SOCIAL HISTORY: Retired. Very supportive daughter. MEDICATIONS: At this time in the hospital currently include azithromycin 500 mg daily, ceftriaxone 1 gram daily, heparin 5000 units b.i.d., Tylenol p.r.n., ipratropium and albuterol respiratory therapy q. 4, Tylenol p.r.n., MiraLax p.r.n., Zofran p.r.n. PHYSICAL EXAMINATION: GENERAL: The patient appears his stated age. He is an elderly male. VITAL SIGNS: Height is 5 feet 4 inches, which is 162.6 cm. Weight is 232 pounds or 105.2 kilograms. He is afebrile. Blood pressure is 142/57, O2 sat 97%, respirations 21, pulse 66 and temperature oral 97.7. HEENT: Face is symmetrical. Hearing aids appear to be in place. He is quite hard of hearing, has a hard time focusing. I am not sure he retained much of what I am trying to explain to him and probably not a reliable historian at this time. He may have some slightly enlarged lymph nodes in the supraclavicular, axillary region, but these are normal size for him. ABDOMEN: Obese. No organomegaly. SKIN: Does have typical ecchymosis. His ibrutinib acts like Plavix from a bruising point of view. EXTREMITIES: Has the same amount of edema as he usually does in both upper and both lower extremities, which is quite extensive. LABORATORY DATA: Notable for BUN of 81 with a creatinine of 8 on admission, today 7.7, total bilirubin 1.4, calcium 10.9, alkaline phosphatase 69, ALT 12. Ammonia 16, white count 18.8, hemoglobin 11.8, MCV 100.4, platelets 214. Differential 54% segmented neutrophils, 29% lymphocytes, 13% monocytes. ASSESSMENT AND PLAN: 1. Chronic lymphocytic leukemia, without definite progression by blood count or CAT scan. 2. Abnormal CAT scan with new and aggressive lytic changes in the bones. As discussed with the patient's daughter and briefly tried to explain to the patient. I am aware that these represent a new, either an aggressive transformation of his lymphoma, I do not think he would tolerate therapy for that or it may be progression of what may be an occult cancer. There has been concern based on his CAT scans that he may have a low-grade lung cancer, though it is not clear. It could also represent difficulties from his noninvasive bladder tumor versus renal mass. Either way, I do not know that the patient would benefit from diagnosis but I do not think he would tolerate therapy for [facility] [address] [place] [place] [address] CONSULTATION Name: DIXONDIXIE ABEL V Room #: 436-P ADM IN M.R.#: [id number] Admission: 02/17/20 Attend Phys: Oksana Cedeno MD Discharge: Date of : 38 Report #: [id number] these bony lesions. I would give consideration to comfort measures. 3. Renal insufficiency with creatinine of 8. Defer to Renal. 4. Hypogammaglobulinemia, had been receiving IVIG at home subcutaneous. 5. Extremity swelling. Defer diuretics to others. 6. History of noninvasive bladder tumor, followed by Dr. Carrillo in [place]. Not known to be progressive. 7. Renal mass, not known to be progressive, followed by Dr. Carrillo in [place]. We will be available. <ELECTRONICALLY SIGNED> By: Bang Ruiz MD 02/20/20 0751 0816 1121 Bang Ruiz MD /sharyn
--- NOTE | 2020-02-20 08:09 | EKG ---
[facility] [place] [address] ELECTROCARDIOGRAM REPORT Name: DIXIE KESSLER V Room #: 436-P ADM IN M.R.#: [id number] Admission: 02/17/20 Attend Phys: Oksana Cedeno MD Discharge: Date of : 38 Report #: [id number] THIS REPORT FOR: cc: Pawan Hicks James A. DO Couchonnal, Luis F. 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: CHANDANA : 1940 Requested By: Mukul Ford Order Number: [id number] MD: Ian Desai Measurements Intervals [place] Rate: 62 P: 0 [place]: 63 QRS: -27 QRSD: 224 T: 146 QT: 501 QTc: 509 Interpretive Statements A-V dual-paced rhythm with some inhibition No further analysis attempted due to paced rhythm Baseline wander in lead(s) V3 Compared to ECG 02/16/2020 22:30:42 No significant changes Electronically Signed On 02-20-2020 8:09:07 CDT by Ian Desai [email or web address] <ELECTRONICALLY SIGNED> By: Ian Desai MD 02/20/2009 23 23 Ian Desai MD /EPI
[2020-02-20] MEDS ORDERED: LORAZEPAM I2 MG/1 M2 SUBLING (08:32)
[2020-02-20] MEDS ORDERED: MSL20MG/ML SUBLING (08:32)
--- NOTE | 2020-02-20 10:18 | NUR ---
PT SHOWS SOME SIGNS OF AGITATION. NURSE GAVE ORAL LORAZAPAM ORDERED. TURNED Q 2H, O2 2L PER NC. PT TRIES TO PULL AT ROBERTS, NURSE REPOSITIONED PT SO HE CAN NOT PULL OUT ROBERTS. BED IN LOW POSITION. WILL CONTINUE TO MONITOR.
[2020-02-20 10:47] VITALS: BP 118/60
[2020-02-20 11:13] VITALS: BP 118/60
--- NOTE | 2020-02-20 11:18 | NUR ---
PT DISCHARGING TODAY TO HOME WITH [facility] SPOKE WITH PT'S DTR (OWEN) AND SHE HAS EVERYTHING READY FOR HOSPITAL BED TO BE DELIVERED. NOTIFIED [facility] SPOKE WITH [facility] IN INTAKE SHE WILL HAVE EQUIPMENT DELIVERED BY NOON TODAY. ARRANGED AMBULANCE TRANSPORT FOR 12:OO-12:3O TODAY AND NOTIFIED PT'S DTR OF TIME. UNIT NOTIFIED.
--- NOTE | 2020-02-24 14:48 | HC ---
[facility] [place] [address] CONSULTATION Name: DIXIE KESSLER V Room #: 436-P [facility] IN M.R.#: [id number] Admission: 02/17/20 Attend Phys: Oksana Cedeno MD Discharge: 02/20/20 Date of : 38 Report #: [id number] THIS REPORT FOR: cc: Pawan Hicks James A. DO Couchonnal, Luis F. MD ~ CC: Pawan Cedeno REASON FOR CONSULTATION: Abnormal pacemaker function. HISTORY OF PRESENT ILLNESS: The patient is well known to me and Dr. Cid. He has a history of right-sided heart failure, lung disease, pulmonary hypertension, chronic lymphocytic leukemia, hypertension, polymyalgia rheumatica, sick sinus syndrome, status post [facility] pacemaker implantation as well as atrial fibrillation. He was admitted to the hospital and on telemetry, there was concern that his pacemaker was not functioning normally. I reviewed telemetry strips, which appeared to show AV sequential pacing with occasional PVCs. I did have [facility] come in and interrogate the pacemaker last night and they reported that the device was functioning normally. There were some AMS episodes on 02/18/2020, all of which were 10 seconds and one that was about 2 minutes. Otherwise, pacemaker was functioning completely normally. There were normal thresholds. The patient denies any chest pain. His shortness of breath is stable. He denies presyncope or syncope. PAST MEDICAL HISTORY: As above. SOCIAL HISTORY: Not a smoker. FAMILY HISTORY: Noncontributory. ALLERGIES: Reviewed. MEDICATIONS: Reviewed. REVIEW OF SYSTEMS: A 12-point review of systems was negative other than what I mentioned above. PHYSICAL EXAMINATION: VITAL SIGNS: Temperature 36.4, pulse 79, respirations 18, blood pressure 110/62, sats 99%. GENERAL: No acute distress. HEENT: Oropharynx is clear. NECK: Supple, with no thyromegaly. HEART: Regular rate and rhythm with occasional ectopic beats, but no murmurs. No elevated JVD. EXTREMITIES: He has bilateral upper extremity chronic swelling, which is [facility] [address] [place] [address] CONSULTATION Name: DIXIE KESSLER Low Room #: 436-P [facility] IN .R.#: [id number] Admission: 02/17/20 Attend Phys: Oksana Cedeno MD Discharge: 02/20/20 Date of : 38 Report #: [id number] unchanged. ABDOMEN: Soft, nontender. NEUROLOGIC: Cranial nerves 2-12 are intact. LABORATORY DATA: White count 10, hemoglobin 11, platelets 197, potassium 4.4, creatinine 8.2. He is COVID negative. ASSESSMENT AND PLAN: In summary, the patient is an 80-year-old with history of pacemaker implantation. His pacemaker is functioning normally. No programming changes were made. Please call with any further questions. <ELECTRONICALLY SIGNED> By: Ian Desai MD 02/24/20 1448 1032 1056 Ian Desai MD /sharyn
--- NOTE | 2020-03-01 18:32 | HC ---
[facility] [place] [address] CONSULTATION Name: DIXIE KESSLER V Room #: 436-P [facility] IN M.R.#: [id number] Admission: 02/17/20 Attend Phys: Oksana Cedeno MD Discharge: 02/20/20 Date of : 36 Report #: [id number] THIS REPORT FOR: cc: Pawan Hicks James A. DO Al-Absi, Ahmed I. MD ~ CC: Pawan Cedeno DATE OF SERVICE: 02/17/2020 REASON FOR CONSULTATION: Acute kidney injury. REASON FOR THE PRESENTATION: Mental status changes. HISTORY OF PRESENT ILLNESS: This is a very well-known patient to me. He is an 79-year-old who is not able to provide me with the history. However, the patient usually follows with me in the clinic. He has chronic kidney disease with a baseline creatinine anywhere from 2.5 to 3. He has history of CLL for many years and had been on ibrutinib since 2015. He also has a history of hypogammaglobulinemia for which he is receiving intravenous immunoglobulins. In the past, he has a pacemaker with a pacemaker wire infection with diskitis. He is maintained on chronic antibiotic suppressive therapy. He had noninvasive bladder tumor with intravesical BCG injection completed in the early 2018. He also carries a diagnosis of renal cell mass for which he is followed by Urology. The patient presented yesterday with his daughter. Daughter reported that she is very concerned about the patient's confusion and mental status. Apparently, there had been some changes of the patient's diuretics in the last few weeks given his significant weight gain. After the changes in the diuretics, the patient started to have a significant weight loss of about 20 pounds. Daughter realized that the patient has been confused with visual hallucination. He has very reduced oral intake and presented into the Emergency Room where he was found to be in acute kidney injury with a creatinine value of 8.0 that has gone down to 7.7 with hydration. The patient has chronically elevated white blood cells and is followed by Hematology/Oncology. REVIEW OF SYSTEMS: Unobtainable given the patient's current mental status. PAST MEDICAL AND SURGICAL HISTORY: 1. Chronic kidney disease, baseline creatinine is in the 2.5-3. 2. History of appendectomy. 3. CLL. 4. Umbilical hernia. 5. Ventral hernia. 6. History of bladder cancer. 7. Lumbar laminectomy. [address] [address] CONSULTATION Name: DIXIE KESSLER V Room #: 436-P [facility] IN M.R.#: [id number] Admission: 02/17/20 Attend Phys: Oksana Cedeno MD Discharge: 02/20/20 Date of : 36 Report #: [id number] 8. Chronic lymphedema of both upper extremities. 9. Pacemaker with a pacemaker wire infection. 10. Diskitis. 11. Port infection due to Pseudomonas. 12. Hypogammaglobulinemia. 13. Methicillin-sensitive Staphylococcus aureus of the spine in the past. FAMILY HISTORY: Unobtainable given the patient's current mental status. SOCIAL HISTORY: He has a very good social support with his daughter. She usually comes to the clinic with the patient every time he visits with me. HOME MEDICATIONS: Listed in our medical record. 1. Clindamycin. 2. Amiodarone. 3. Isosorbide mononitrate. 4. Metoprolol. 5. Torsemide. 6. Allopurinol. 7. Imbruvica. 8. I do not see metolazone on the list. PHYSICAL EXAMINATION: GENERAL: The patient is confused. VITAL SIGNS: Temperature 36.2, pulse rate 66, blood pressure is 142/57. NECK: No jugular venous distention. CHEST: Decreased air entry bilaterally. CARDIOVASCULAR: No rub. Distant S1, S2. ABDOMEN: Soft, slightly distended bladder with a ventral hernia. EXTREMITIES: Lower extremities, +2 edema. Upper extremities, chronic bilateral lymphedema changes. LABORATORY VALUES: White blood cell count 18.8, hemoglobin 11.8, platelet 214. Sodium is 141, potassium is 4.7, BUN is 81, creatinine is down to 7.7 from 8.0, calcium 10.7. Blood cultures are pending. IMAGING: Chest x-ray, chronic scarring. ASSESSMENT, IMPRESSION AND PLAN: 1. Acute kidney injury. 2. Chronic kidney disease with a baseline creatinine of around 2.5-3. 3. History of chronic lymphocytic leukemia. 4. Chronic leukocytosis. 5. History of bladder cancer. [address] [address] CONSULTATION Name: DIXIE KESSLER Low Room #: 436-P [facility] IN M.R.#: [id number] Admission: 02/17/20 Attend Phys: Oksana Cedeno MD Discharge: 02/20/20 Date of : 36 Report #: [id number] 6. Encephalopathy with unknown underlying cause. 7. The patient's creatinine is definitely way above his baseline and I will initiate the acute kidney injury workup. Bedside bladder scan revealed a significant bladder distention and we will place a Foreman catheter. 8. Continue with IV fluid. 9. It is likely that this is a combination of diuretics and reduced oral intake. Those might have contributed to the patient's acute kidney injury, rising BUN and creatinine and I will stop his diuretics. 10. Infectious etiology will need to be ruled out. 11. Hematology/Oncology to evaluate the patient. 12. He recently had a CT scan of his chest and I do not have an access to that CT scan. This will need to be discussed with the patient once we have the result of his CT. 13. He has mild hypercalcemia on his presentation and this seems to be improving with IV fluid. 14. We will keep an eye on the patient during the next few days. There is no absolute indication for hemodialysis at this point. <ELECTRONICALLY SIGNED> By: uNvia Spivey MD 03/01/20 [id number] [id number] Nuvia Spivey MD /nt
== END 2020-02-20 12:29 | disposition hospice, home (50) | DRG 70 ==
LOC: ER 21:27 → EROBS 02-17 02:04 → 2N 02-17 02:04 → 4S 02-18 23:28
PROVIDERS: Emergency Medicine; Hospitalist; Internal Medicine Nephrology; Nurse Practitioner Family; ADMIT Internal Medicine; ATTEND Internal Medicine
PROC: 4B02XSZ Measurement of Cardiac Pacemaker, External Approach (ICD-10-PCS; principal; 2020-02-18)
DX: G93.41 Metabolic encephalopathy (principal); N17.0 Acute kidney failure with tubular necrosis; R65.11 Systemic inflammatory response syndrome (SIRS) of non-infectious origin with acute organ dysfunction; J18.9 Pneumonia, unspecified organism; I50.32 Chronic diastolic (congestive) heart failure; N39.0 Urinary tract infection, site not specified; C91.10 Chronic lymphocytic leukemia of B-cell type not having achieved remission; D80.1 Nonfamilial hypogammaglobulinemia; Z68.41 Body mass index [BMI] 40.0-44.9, adult; C91.11 Chronic lymphocytic leukemia of B-cell type in remission; E53.0 Riboflavin deficiency; E87.0 Hyperosmolality and hypernatremia; N17.9 Acute kidney failure, unspecified; Z51.5 Encounter for palliative care; M19.90 Unspecified osteoarthritis, unspecified site; G89.4 Chronic pain syndrome; J43.9 Emphysema, unspecified; I48.91 Unspecified atrial fibrillation; M10.9 Gout, unspecified; M35.3 Polymyalgia rheumatica; N28.89 Other specified disorders of kidney and ureter; R63.4 Abnormal weight loss; I89.0 Lymphedema, not elsewhere classified; E55.9 Vitamin D deficiency, unspecified; E87.8 Other disorders of electrolyte and fluid balance, not elsewhere classified; I49.5 Sick sinus syndrome; Z20.828 Contact with and (suspected) exposure to other viral communicable diseases; Z96.659 Presence of unspecified artificial knee joint; I27.20 Pulmonary hypertension, unspecified; N18.3 Chronic kidney disease, stage 3 (moderate); G62.9 Polyneuropathy, unspecified; Z79.899 Other long term (current) drug therapy; Z90.49 Acquired absence of other specified parts of digestive tract; Z79.51 Long term (current) use of inhaled steroids; Z87.891 Personal history of nicotine dependence; Z95.0 Presence of cardiac pacemaker
CPT/HCPCS: 10081; 10102